=== PATIENT | female | born 1945 | race Caucasian/White ===

== ENCOUNTER 2017-07-16 14:17 | Inpatient (IN) | payer MEDICARE, OTHER ==
[~2017-07-16] VITALS: Ht 154.9 cm; Wt 74.8 kg
[2017-07-16] VITALS (7 sets, daily range): BP systolic 155–215; BP diastolic 79–99
[~2017-07-16 14:17] MED LIST: ALLP300T PO; ALPR0.5T72 PO; AMIT25TA9 PO; AMT25T; ASP325TEC PO; ASP81CT; BENZ100C18; BMSB30; BUDE6HFA IH; CEFU250T11 PO; CEPH500C PO; CIPR7.5D2 OT; CODE118S2 PO; CRB200T PO; CRS350T PO; FAMO20TA5 PO; FLDR.1T PO; GBPN600T; HCT25T PO; HYDR-31; IBP800T; IPRA3AMP19 IH; LOVA20TA2 PO; LSNP20T PO; METO100T2 PO; MOME13HF IH; MTF500T PO; OMEP40CA36 PO; ONDA8TAB9 PO; PHEN100T26 PO; PNT40TEC PO; PRD10T PO; PROP1TAB77; RANI25TA PO; TIZA2CAP7 PO; TRZ100T PO; VYTORIN
[2017-07-16 15:05] LABS: BASOPHILS % (AUTO) 0 % (0-10); EOSINOPHILS % (AUTO) 0 % (0-10); LYMPHOCYTES # (AUTO) 1.9 X 10^3 (1.0-4.0); LYMPHOCYTES % (AUTO) 9 % (12-44); MEAN CORPUSCULAR HEMOGLOBIN 31 PG (25-34); MEAN CORPUSCULAR HGB CONC 33 G/DL (32-36); MEAN CORPUSCULAR VOLUME 93 FL (80-99); MEAN PLATELET VOLUME 9.3 FL (7.4-10.4); MONOCYTES # (AUTO) 1.1 X 10^3 (0.0-1.0); MONOCYTES % (AUTO) 5 % (0-12); NEUTROPHILS # (AUTO) 18.1 X 10^3 (1.8-7.8); NEUTROPHILS % (AUTO) 86 % (42-75); PLATELET COUNT 381 10^3/uL (130-400); RED CELL DISTRIBUTION WIDTH 14.8 % (10.0-14.5); WHITE BLOOD COUNT 21.1 10^3/uL (4.3-11.0)
[2017-07-16 15:08] LABS: PROTHROMBIN TIME PATIENT 13.2 SEC (12.2-14.7)
[2017-07-16 15:18] LABS: ALANINE AMINOTRANSFERASE 19 U/L (0-55); ALBUMIN 3.7 GM/DL (3.2-4.5); ANION GAP 16 MMOL/L (5-14); ASPARTATE AMINO TRANSFERASE 28 U/L (5-34); BILIRUBIN,TOTAL 0.7 MG/DL (0.1-1.0); BLOOD UREA NITROGEN 17 MG/DL (7-18); BUN/CREATININE RATIO 22; CALCIUM 10.3 MG/DL (8.5-10.1); CARBON DIOXIDE 19 MMOL/L (21-32); CHLORIDE 97 MMOL/L (98-107); CREATININE SERUM 0.78 MG/DL (0.60-1.30); GFR ESTIMATED > 60; GLUCOSE 198 MG/DL (70-105); POTASSIUM 3.9 MMOL/L (3.6-5.0); SODIUM 132 MMOL/L (135-145); TOTAL PROTEIN 7.8 GM/DL (6.4-8.2)
[2017-07-16 15:20] LABS: BAND NEUTROPHILS 6 %; BASOPHILS % (MANUAL) 0 %; EOSINOPHILS % (MANUAL) 0 %; LYMPHOCYTES % (MANUAL) 12 %; NEUTROPHILS % (MANUAL) 81 %
[2017-07-16] MEDS ORDERED: NS IV 1000 ML 1,000 ML IV ONE (15:46)
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
--- NOTE | 2017-07-16 15:55 | Diagnostic Imaging Report ---
INDICATION: Confusion. COMPARISON: 05/31/13. EXAMINATION: Single view of the chest was obtained. FINDINGS: New infiltrate in the right upper lobe. The heart is prominent without pulmonary edema. There is some widening of the mediastinum likely due to technique. Followup with two views is recommended. There is no pneumothorax or effusion. Osseous structures are normal. IMPRESSION: 1. Right upper lobe infiltrate concerning for pneumonia. Followup recommended 2. Cardiac enlargement without overt pulmonary edema. 3. Widening of the mediastinum likely due to technique. Again, followup two views recommended. Dictated by: Dictated on workstation # [id number]
[2017-07-16] MEDS ORDERED: PIPERACILLIN SODIUM/TAZOBACTAM 4.5 GM in NS (IVPB) 100 ML IV ONE (16:00)
[2017-07-16 16:13] LABS: KETONES,URINE 3+ (NEGATIVE); LEUKOCYTE ESTERASE ,URINE 2+ (NEGATIVE); NITRITE,URINE NEGATIVE (NEGATIVE); PH,URINE 6 (5-9); PROTEIN,URINE 3+ (NEGATIVE); UROBILINOGEN,URINE 4 MG/DL (NORMAL)
[2017-07-16] MEDS ORDERED: ACETAMINOPHEN 500 MG TAB (TYLENOL) PO ONE (16:15)
[2017-07-16 16:22] LABS: BILIRUBIN,URINE 1+ (NEGATIVE); SQUAMOUS EPITHELIAL CELL,UR 0-2 /HPF; WBC,URINE 25-50 /HPF
--- NOTE | 2017-07-16 16:36 | Diagnostic Imaging Report ---
PROCEDURE: CT head without contrast. TECHNIQUE: Multiple contiguous axial images were obtained through the brain without the use of intravenous contrast. INDICATION: Confusion. COMPARISON: 07/27/08. FINDINGS: There is mild age-related cerebral volume loss and chronic small vessel ischemic changes. This has increased from the prior examination. Subacute appearing lacunar infarct is seen in the right thalamic region. There is no focus of acute ischemia or hemorrhage. There is no midline shift or mass effect. The bony calvarium, visualized paranasal sinuses and mastoids are normal. IMPRESSION: 1. Subacute right thalamic lacunar infarct measuring approximately 6 mm. 2. No focus of acute ischemia or hemorrhage. 3. No midline shift or mass effect. Dictated by: Dictated on workstation # [id number]
[2017-07-16] MEDS ORDERED: ASPIRIN 325 MG (5 GR) TABLET PO ONE (17:15)
[2017-07-16] MEDS ORDERED: LOVA40TA2 PO (19:29)
[2017-07-16] MEDS ORDERED: PANT40TA3 PO (19:29)
[2017-07-16] MEDS ORDERED: TRAZ100T92 PO (19:29)
[2017-07-16] MEDS ORDERED: METF500T4 PO (19:29)
[2017-07-16] MEDS ORDERED: SPIR25TA3 PO (19:29)
[2017-07-16] MEDS ORDERED: CARB200T6 PO (19:29)
[2017-07-16] MEDS ORDERED: CITA20TA7 PO (19:29)
[2017-07-16] MEDS ORDERED: ALLO300T2 PO (19:29)
[2017-07-16] MEDS ORDERED: ALPR0.5T7 PO (19:29)
[2017-07-16] MEDS ORDERED: AMIT25TA9 PO (19:31)
[2017-07-16] MEDS ORDERED: ONDANSETRON 4 MG/2 ML (SDV) Z0FRAN IVP PRN (20:00)
[2017-07-16] MEDS ORDERED: ACETAMINOPHEN 500 MG TAB (TYLENOL) PO PRN (20:00)
[2017-07-16] MEDS ORDERED: MILK OF MAGNESIA 400 MG/5 ML 30 ML UDC PO PRN (20:15)
[2017-07-16] MEDS ORDERED: RT-ALBUTEROL SULF 2.5 MG/3 ML PRE-MIX VIAL IH PRN (20:30)
[2017-07-16] MEDS ORDERED: LEVOFLOXACIN 750 MG/D5W 150 ML PRE-MIX IV SCH (21:00)
[2017-07-16] MEDS ORDERED: LEVOFLOXACIN 750 MG/150 ML IV 150 ML IV SCH (21:00)
[2017-07-16] MEDS ORDERED: FAMOTIDINE 20MG/2ML IV (PEPCID) IVP SCH (21:00)
[2017-07-16] MEDS: NS IV 1000 ML 1,000 ML IV SCH (21:33)
[2017-07-16] MEDS: ENOXAPARIN 40 MG/0.4 ML (LOVENOX) SYR SC SCH (22:51)
[2017-07-16] MEDS: inSUlin ASPART (NovoLOG) 1 UNIT/0.01 ML (CHARGE PER UNIT) SC SCH (22:52)
[2017-07-16] MEDS: PIPERACILLIN SODIUM/TAZOBACTAM 4.5 GM in NS (IVPB) 100 ML IV SCH (22:53)
[2017-07-17 00:50] VITALS: BP 153/92
[2017-07-17 03:45] VITALS: BP 179/84
[2017-07-17 05:27] LABS: BASOPHILS % (AUTO) 0 % (0-10); EOSINOPHILS # (AUTO) 0.1 10^3/uL (0.0-0.3); EOSINOPHILS % (AUTO) 1 % (0-10); LYMPHOCYTES # (AUTO) 1.7 X 10^3 (1.0-4.0); LYMPHOCYTES % (AUTO) 12 % (12-44); MEAN CORPUSCULAR HEMOGLOBIN 31 PG (25-34); MEAN CORPUSCULAR HGB CONC 33 G/DL (32-36); MEAN CORPUSCULAR VOLUME 94 FL (80-99); MEAN PLATELET VOLUME 9.3 FL (7.4-10.4); MONOCYTES % (AUTO) 8 % (0-12); NEUTROPHILS # (AUTO) 10.8 X 10^3 (1.8-7.8); NEUTROPHILS % (AUTO) 79 % (42-75); PLATELET COUNT 296 10^3/uL (130-400); RED CELL DISTRIBUTION WIDTH 14.8 % (10.0-14.5); WHITE BLOOD COUNT 13.6 10^3/uL (4.3-11.0)
[2017-07-17 06:22] LABS: ALANINE AMINOTRANSFERASE 24 U/L (0-55); ANION GAP 12 MMOL/L (5-14); ASPARTATE AMINO TRANSFERASE 31 U/L (5-34); BILIRUBIN,TOTAL 0.7 MG/DL (0.1-1.0); BLOOD UREA NITROGEN 17 MG/DL (7-18); BUN/CREATININE RATIO 24; CALCIUM 8.9 MG/DL (8.5-10.1); CARBON DIOXIDE 18 MMOL/L (21-32); CHLORIDE 104 MMOL/L (98-107); CHOLESTEROL 153 MG/DL (< 200); CREATININE SERUM 0.71 MG/DL (0.60-1.30); DIRECT LDL 85 MG/DL (1-129); GFR ESTIMATED > 60; GLUCOSE 130 MG/DL (70-105); POTASSIUM 3.5 MMOL/L (3.6-5.0); SODIUM 134 MMOL/L (135-145); TOTAL PROTEIN 6.1 GM/DL (6.4-8.2); TRIGLYCERIDES 104 MG/DL (<150); VLDL CHOLESTEROL 21 MG/DL (5-40)
[2017-07-17] MEDS: inSUlin ASPART (NovoLOG) 1 UNIT/0.01 ML (CHARGE PER UNIT) SC SCH ×4 (06:24→20:59)
[2017-07-17] MEDS: NS IV 1000 ML 1,000 ML IV SCH ×2 (06:31→18:01)
[2017-07-17] MEDS: PIPERACILLIN SODIUM/TAZOBACTAM 4.5 GM in NS (IVPB) 100 ML IV SCH ×3 (06:31→21:55)
[2017-07-17] MEDS: RT-ALBUTEROL/IPRATROPIUM 3 ML (DUONEB) VIAL INH SCH ×4 (07:24→19:06)
[2017-07-17 08:00] VITALS: BP 191/85
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
[2017-07-17] MEDS ORDERED: ASPIRIN E.C. 81 MG (ECOTRIN) TAB PO SCH (09:00)
[2017-07-17] MEDS: PANTOPRAZOLE 40 MG (PROTONIX) TAB PO SCH (09:21)
[2017-07-17] MEDS: ASPIRIN 325 MG (5 GR) TABLET PO SCH (09:22)
[2017-07-17] MEDS: FAMOTIDINE 20MG/2ML IV (PEPCID) IVP SCH ×2 (09:22→20:59)
--- NOTE | 2017-07-17 09:44 | Diagnostic Imaging Report ---
INDICATION: Pneumonia. Comparison made with prior examination 07/16/17. FINDINGS: There is cardiomegaly. There is persistent right upper lobe consolidation suspect for pneumonia. There is no pleural effusion or pneumothorax. There is a nodular density in the right lung base. IMPRESSION: Persistent right upper lobe pneumonia. Cardiomegaly. The nodular density in the right lung base corresponds with the previously described calcified granuloma. Dictated by: Dictated on workstation # [id number]
[2017-07-17 11:50] VITALS: BP 191/97
--- NOTE | 2017-07-17 12:38 | Consultation-Cardiology ---
HPI-Cardiology Cardiology Consultation: Date of Consultation 07/17/17 Date of Admission Attending Physician Quiana Mullen MD Admitting Physician Gopal Todd MD Consulting Physician Barbara RAMOS MD HPI: Time Seen by Provider: 12:15 Chief Complaint: Sinus tachycardia This is a 71-year-old lady with history of hypertension. She does not have any significant cardiac history. She presented with altered mental status and shortness of breath. She's been diagnosed with sepsis and possible stroke. She denies any chest pain. She does have some shortness of breath. Review of Systems-Cardiology Review of Systems Constitutional: fever Eyes: No As described under HPI, No no symptoms reported, No blindness, No blurred vision, No contact lenses, No drainage, No decreased acuity, No foreign body sensation, No glasses, No inflammation, No pain, No photophobia, No previous injury, No shadows, No tunnel vision, No other, No vision change Ears/Nose/Throat: No As described under HPI, No no symptoms reported, No chronic hearing loss, No epistaxis, No ear discharge, No ear pain, No loose teeth, No mouth pain, No mouth swelling, No nasal drainage, No nose pain, No recent hearing loss, No throat pain, No throat swelling, No ulcerations, No other Respiratory: shortness of breath Cardiovascular: No no symptoms reported, No As described under HPI, No chest pain, No edema, No irregular heart rate, No lightheadedness, No palpitations, No syncope, No other Gastrointestinal: No no symptoms reported, No As described under HPI, No abdomen distended, No abdominal pain, No blood streaked bowels, No constipation , No diarrhea, No difficulty swallowing, No nausea, No poor appetite, No poor fluid intake, No rectal bleeding, No vomiting, No other, No nausea/vomiting/ diarrhea, No stool coloration changes Genitourinary: no symptoms reported : No Musculoskeletal: No no symptoms reported, No As describe under HPI, No back pain, No gout, No joint pain, No joint swelling, No muscle pain, No muscle stiffness, No neck pain, No other Skin: No no symptoms reported, No As described under HPI, No change in color, No change in hair/nails, No dryness, No lesions, No lumps, No rash, No other, No skin related problems, No ulcerations, No rash on exposed areas, No ulcerations on exposed areas Psychiatric/Neurological: No no symptoms reported, No As described under HPI, No anxiety, No depression, No emotional problems, No headache, No numbness, No pre-existing deficit, No seizure, No tingling, No tremors, No weakness, No other , No focal weakness, No syncope MXY-Bxeufs-Dgqyao Hx Patient Social History Alcohol Use: Denies Use Recreational Drug Use: No Smoking Status: Current Everyday Smoker Type Used: Cigarettes Recent Foreign Travel: No Recent Infectious Disease Expo: No Hospitalization with Isolation: Denies Physical Abuse Screen: No Sexual Abuse: No Immunizations Up To Date Tetanus Booster (TDap): More than 5yrs Date of Pneumonia Vaccine: Jun 01, 2013 Past Medical History PMH As described under Assessment. Family Medical History Family History: Completed stroke 19 FATHER FH: COPD (chronic obstructive pulmonary disease) 19 MOTHER Hypertension G8 SISTER 19 MOTHER Myocardial infarction 19 FATHER Allergies and Home Medications Allergies Coded Allergies: Iodinated Contrast- Oral and IV Dye (Unverified Allergy, Mild, 07/26/07) Home Medications Allopurinol 300 Mg Tablet, 300 MG PO DAILY, (Reported) Alprazolam 0.5 Mg Tablet, 0.5 MG PO TID PRN for ANXIETY, (Reported) Amitriptyline HCl 25 Mg Tablet, 25 MG PO BID, (Reported) Carbamazepine 200 Mg Tablet, 200 MG PO BID, (Reported) Citalopram Hydrobromide 20 Mg Tablet, 20 MG PO DAILY, (Reported) Lovastatin 40 Mg Tablet, 40 MG PO HS, (Reported) Metformin HCl 500 Mg Tablet, 500 MG PO DAILY, (Reported) Pantoprazole Sodium 40 Mg Tablet.dr, 40 MG PO DAILY, (Reported) Spironolactone 25 Mg Tablet, 25 MG PO DAILY, (Reported) Trazodone HCl 100 Mg Tablet, 100 MG PO HS, (Reported) Physical Exam-Cardiology Physical Exam Vital Signs/I&O Vital Sign - Last 12Hours 07/17/17 07/17/17 07/17/17 07/17/17 00:50 01:00 03:45 07:00 Temp 98.9 98.4 Pulse 90 87 86 81 Resp 20 20 B/P (MAP) 153/92 179/84 Pulse Ox 97 96 O2 Delivery Room Air Room Air 07/17/17 07/17/17 07/17/17 07/17/17 07:25 08:00 09:00 11:33 Temp 98.0 Pulse 83 Resp 20 B/P (MAP) 191/85 Pulse Ox 96 96 96 O2 Delivery Room Air Room Air Room Air Room Air 07/17/17 11:50 Temp 98.3 Pulse 87 Resp 20 B/P (MAP) 191/97 Pulse Ox 94 O2 Delivery Room Air Capillary Refill : Less Than 3 Seconds Constitutional: No appears stated age, No AAO x 3, No apparent distress, No PERRL, No well-developed, No well-nourished, No other HEENT: No PERRL, No normal ENT inspection, No TMs normal, No pharynx normal, No scleral icterus (R), No scleral icterus (L), No pale conjunctivae (R), No pale conjunctivae (L), No photophobia, No TM abnormal (R), No TM abnormal (L), No pharyngeal erythema, No tonsillar exudate, No other, No discharge, No EOMI, No hearing is well preserved, No hard of hearing, No oral hygience is good, No ulceration, No xanthelasmas are seen Neck: No non-tender, No full range of motion, No supple, No normal inspection, No carotid bruit, No limited range of motion, No lymphadenopathy (R), No lymphadenopathy (L), No tender lateral, No tender midline, No thyromegaly, No other, No carotid pulses are 2 + bilaterally, No with good upstrokes Respiratory: No accessory muscle use, No respiratory distress, No chest tender , No chest expansion is symmetric, No chest is bilaterally symmetric, No lungs clear to percussion, No lungs clear to auscultation, No crackles, No rhonchi, No rales, No stridor, No wheezing, No pleural rub, No other Cardiovascular: No regular rate-rhythm, No irregularly irregular, No extra beats, No parasternal heave is noted, No JVD, No edema, No bradycardia, No tachycardia, No point of maximal impulse, No cardiac thrills are palpable, No S1 and S2, No gallop/S3, No gallop/S4, No diastolic murmur, No systolic murmur, No friction rub, No click, No other Gastrointestinal: No tender, No soft, No round, No distended, No pulsatile mass , No organomegaly, No guarding, No rebound, No tenderness, No hernia, No mass, No audible bowel sounds, No abnormal bowel sounds, No abdominal bruits, No spleenomegaly, No other Rectal: deferred Extremities: No normal range of motion, No non-tender, No normal inspection, No pedal edema, No calf tenderness, No normal capillary refill, No pelvis stable , No calf tenderness, No inflammation, No pedal edema, No slow capillary refill , No swelling, No other, No abrasion, No clubbing, No cyanosis, No ecchymosis, No laceration, No no lower extremity edema bilateral, No significant edema, No tenderness, No wound Neurologic/Psychiatric: No purchasing intern II-XII nml as tested, No no motor/sensory deficits, No alert, No normal mood/affect, No oriented x 3, No abnormal cerebellar tests, No abnormal purchasing intern II-XII, No abnormal gait, No aphasia, No EOM palsy, No facial droop, No motor weakness, No sensory deficit, No depressed affect, No disoriented x 3, No other, No grossly intact, No power is 5/5 both on sides Skin: normal color, warm/dry Data Review Labs Laboratory Tests 07/16/17 14:40: White Blood Count 21.1H, Red Blood Count 3.90L, Hemoglobin 12.1, Hematocrit 36, Mean Corpuscular Volume 93, Mean Corpuscular Hemoglobin 31, Mean Corpuscular Hemoglobin Concent 33, Red Cell Distribution Width 14.8H, Platelet Count 381, Mean Platelet Volume 9.3, Neutrophils (%) (Auto) 86H, Lymphocytes (%) (Auto) 9L , Monocytes (%) (Auto) 5, Eosinophils (%) (Auto) 0, Basophils (%) (Auto) 0, Neutrophils # (Auto) 18.1H, Lymphocytes # (Auto) 1.9, Monocytes # (Auto) 1.1H, Eosinophils # (Auto) 0.0, Basophils # (Auto) 0.0, Neutrophils % (Manual) 81, Lymphocytes % (Manual) 12, Monocytes % (Manual) 1, Eosinophils % (Manual) 0, Basophils % (Manual) 0, Band Neutrophils 6, Hypersegmented Neutrophils SLIGHT, Blood Morphology Comment NORMAL, Prothrombin Time 13.2, INR Comment 1.0, Activated Partial Thromboplast Time 31, Sodium Level 132L, Potassium Level 3.9, Chloride Level 97L, Carbon Dioxide Level 19L, Anion Gap 16H, Blood Urea Nitrogen 17, Creatinine 0.78, Estimat Glomerular Filtration Rate > 60, BUN/ Creatinine Ratio 22, Glucose Level 198H, Hemoglobin A1c 6.3H, Lactic Acid Level 1.42, Calcium Level 10.3H, Total Bilirubin 0.7, Aspartate Amino Transf (AST/SGOT ) 28, Alanine Aminotransferase (ALT/SGPT) 19, Alkaline Phosphatase 168H, Total Protein 7.8, Albumin 3.7 07/16/17 16:07: Urine Color YELLOW, Urine Clarity SLIGHTLY CLOUDY, Urine pH 6, Urine Specific [place]ax 1.020, Urine Protein 3+H, Urine Glucose (UA) NEGATIVE, Urine Ketones 3+H , Urine Nitrite NEGATIVE, Urine Bilirubin 1+H, Urine Urobilinogen 4H, Urine Leukocyte Esterase 2+H, Urine RBC (Auto) 2+H, Urine RBC 0-2, Urine WBC 25-50H, Urine Squamous Epithelial Cells 0-2, Urine Crystals PRESENTH, Urine Amorphous Sediment FEW RAMESH URATESH, Urine Bacteria MODERATEH, Urine Casts NONE, Urine Mucus SMALLH, Urine Culture Indicated YES 07/16/17 20:48: Glucometer 294H 07/17/17 05:20: White Blood Count 13.6H, Red Blood Count 3.20L, Hemoglobin 9.9L, Hematocrit 30L , Mean Corpuscular Volume 94, Mean Corpuscular Hemoglobin 31, Mean Corpuscular Hemoglobin Concent 33, Red Cell Distribution Width 14.8H, Platelet Count 296, Mean Platelet Volume 9.3, Neutrophils (%) (Auto) 79H, Lymphocytes (%) (Auto) 12 , Monocytes (%) (Auto) 8, Eosinophils (%) (Auto) 1, Basophils (%) (Auto) 0, Neutrophils # (Auto) 10.8H, Lymphocytes # (Auto) 1.7, Monocytes # (Auto) 1.0, Eosinophils # (Auto) 0.1, Basophils # (Auto) 0.0, Sodium Level 134L, Potassium Level 3.5L, Chloride Level 104, Carbon Dioxide Level 18L, Anion Gap 12, Blood Urea Nitrogen 17, Creatinine 0.71, Estimat Glomerular Filtration Rate > 60, BUN/ Creatinine Ratio 24, Glucose Level 130H, Calcium Level 8.9, Total Bilirubin 0.7 , Aspartate Amino Transf (AST/SGOT) 31, Alanine Aminotransferase (ALT/SGPT) 24, Alkaline Phosphatase 154H, Total Protein 6.1L, Albumin 3.0L, Triglycerides Level 104, Cholesterol Level 153, LDL Cholesterol Direct 85, VLDL Cholesterol 21 , HDL Cholesterol 43 07/17/17 10:44: Glucometer 315H Microbiology 07/16/17 Urine Culture - Preliminary, Resulted Probable Enterococcus Species ECG Impression ECG Initial ECG Rhythm: Normal Sinus A/P-Cardiology Assessment/Admission Diagnosis Sinus tachycardia, Sepsis, Hypertension, Shortness of breath, Stroke Plan Sinus tachycardia: Much better now. On telemetry sinus rhythm at 72 bpm. Initial sinus tachycardia likely due to the underlying systemic illness. Improved with IV antibiotics. Negative troponin and negative BNP. Sepsis: IV fluids and IV antibiotics. Hypertension: Can start home medications. Shortness of breath: Negative BNP Stroke: Defer to primary team. Thank you for your consultation. Please call me if you have any questions. Ariel Ramos MD, FACP, FACC, FSCAI, FHRS, CCDS Interventional Cardiology Cardiac Electrophysiology Vascular Medicine and Endovascular Interventions Clinical Quality Measures DVT/VTE Risk/Contraindication: Risk Factor Score Per Nursin RFS Level Per Nursing on Admit: 4+=Very High Barbara RAMOS MD Jul 17, 2017 12:38 pm
--- NOTE | 2017-07-17 13:27 | History & Physical-Hospitalist ---
HPI History of Present Illness: HPI/Chief Complaint The patient is a 71-year-old white female who was admitted after she was seen in the emergency room at [facility]. She is clearly confused and cannot give specific details about her illness. Apparently her son who lives in [facility] came for a visit and found her to be in a confused and undesirable state. He insisted that she come to the emergency room. The family reported that her last known well time was a week prior when they went out to dinner together. They found her to be confused and short of breath on this encounter. She was febrile at the emergency room and could not really answer questions. She has a past history of hypertension and is on medications. She has a long history of cigarette smoking but has quit at present. Is also known that she previously had difficulties with lisinopril which caused a cough. She states that she is on a blood pressure medicine but none is included at admission questioning. Workup in the emergency room showed what appeared to be a right upper lobe pneumonia, a white blood count of 21,000 at presentation. And a right upper lobe infiltrate on chest x-ray. In addition the UA showed 25-50 WBCs per high-powered field. Her temperature at the emergency room was 100.7 with a pulse of 108 consistent with Sirs. The UA and chest x-ray then yield sepsis. CT scan of the head shows a subacute lacunar infarct which may explain the confusion Source: patient Exam Limitations: no limitations Date Seen 07/17/17 Time Seen by Provider: 13:22 Attending Physician Quiana Mullen MD PCP Gopal Todd MD Referring Physician Date of Admission Jul 16, 2017 at 16:15 Home Medications & Allergies Home Medications Reviewed patient Home Medication Reconciliation Form Allergies Allergies Coded Allergies Iodinated Contrast- Oral and IV Dye (Unverified Allergy, Mild, 07/26/07) Past Ijnhapo-Imbqhs-Lbbqtp Hx Patient Social History Alcohol Use: Denies Use Recreational Drug Use: No Smoking Status: Current Everyday Smoker Type Used: Cigarettes Physical Abuse Screen: No Sexual Abuse: No Recent Foreign Travel: No Contact w/other who traveled: No Recent Hopitalizations: Yes Recent Infectious Disease Expo: No Immunizations Up To Date Tetanus Booster (TDap): More than 5yrs Pediatric: No Date of Pneumonia Vaccine: Jun 01, 2013 Seasonal Allergies Seasonal Allergies: Yes Surgeries Yes (CHAS,APPY,HYST,JAW ) Abdominal (Partial colectomy), Appendectomy, Gallbladder, Hysterectomy Respiratory Yes Cardiovascular Yes (MITRAL VALVE PROLAPSE) Coronary Artery Disease, Hypertension Neurological Yes (Fine tremor) TIA Reproductive System Hx Reproductive Disorders: No Sexually Transmitted Disease: No HIV/AIDS: No Female Reproductive Disorders: Denies Genitourinary No Gastrointestinal Yes (perf bowel--8-10 inch colon removed 2007) Diverticulosis, Gall Bladder Disease Musculoskeletal Yes Gout Endocrine History of Endocrine Disorders: Yes Endocrine Disorders: Diabetes, Non-Insulin dep HEENT Loss of Vision: Denies Hearing Impairment: Hard of Hearing Cancer Yes Skin Psychosocial History of Psychiatric Problem: Yes Behavioral Health Disorders: Depression Integumentary History of Skin or Integumenta: Yes (skin cancer removed to left lower leg 2012 ) Blood Transfusions History of Blood Disorders: No Adverse Reaction to a Blood Tr: No Family Medical History Family Hx: Completed stroke 19 FATHER FH: COPD (chronic obstructive pulmonary disease) 19 MOTHER Hypertension G8 SISTER 19 MOTHER Myocardial infarction 19 FATHER Review of Systems Constitutional: see HPI EENTM: no symptoms reported Respiratory: cough, short of breath Cardiovascular: no symptoms reported Gastrointestinal: no symptoms reported Genitourinary: see HPI Musculoskeletal: no symptoms reported Skin: no symptoms reported Psychiatric/Neurological: Other (confusion, uncertain of situation or date and time.) Physical Exam Physical Exam Vital Signs Vital Sign - Last 12Hours 07/16/17 07/16/17 07/16/17 14:22 17:20 20:17 Temp 100.7 Pulse 108 Resp 18 B/P (MAP) 197/107 Pulse Ox 96 O2 Delivery Room Air FiO2 21 Capillary Refill : Less Than 3 Seconds General Appearance: Mild Distress Eyes: Bilateral Eye Normal Inspection HEENT: Normal ENT Inspection Neck: Normal Inspection Respiratory: Decreased Breath Sounds (distant breath sounds) Cardiovascular: Regular Rate, Rhythm, No Edema, No Gallop, No JVD, No Murmur, Normal Peripheral Pulses Gastrointestinal: Normal Bowel Sounds, No Organomegaly, No Pulsatile Mass, Non Tender, Soft Extremity: Normal Capillary Refill, Normal Inspection, Normal Range of Motion, Non Tender, No Calf Tenderness, No Pedal Edema Neurologic/Psychiatric: Other (confusion relative to date and time and circumstance) Skin: Normal Color, Warm/Dry Lymphatic: No Adenopathy Results Results/Procedures Lab Laboratory Tests 07/16/17 14:40 07/17/17 05:20 Assessment/Plan Admission Diagnosis 1.sepsis/right upper lobe pneumonia and apparent UTI. 2.confusion/subacute lacunar infarct. 3.COPD. 4.hypertension. Assessment and Plan Empiric antibiotics while awaiting cultures. It has been noted that there is a significant drop in white count at this point. Her MAXIMUM TEMPERATURE was 100.7. Urine is growing enterococcus which by our antibiogram should be sensitive to ampicillin or vancomycin. Clinical Quality Measures DVT/VTE Risk/Contraindication: Risk Factor Score Per Nursin RFS Level Per Nursing on Admit: 4+=Very High VASHTI MILES MD Jul 17, 2017 13:27
[2017-07-17 15:50] VITALS: BP 179/92
--- NOTE | 2017-07-17 16:04 | Occupational Therapy Eval ---
OT Evaluation-General/PLF Medical Diagnosis Admission Date Jul 16, 2017 at 16:15 Medical Diagnosis: cva Onset Date: Jul 17, 2017 Therapy Diagnosis Therapy Diagnosis: Weakness Height/Weight Height (Feet): 5 Height (Inches): 1.00 Weight (Pounds): 164 Weight (Ounces): 14.0 Precautions Precautions/Isolations: Fall Prevention, Standard Precautions Safety Interventions: Bed Exit Alarm, Reorient-PRN Weight Bear Status Weight Bearing Restriction: Weight Bearing/Tolerated Referral Physician: Quiana Mullen MD Referral Reason: Activity Tolerance, Self Care, Evaluation/Treatment, Strengthening/ROM Medical History Pertinent Medical History: CAD, COPD, HTN, Neuropathy Additional Medical History partial colectomy, appendectomy, hysterectomy, mitral valve prolapse Current History Pt. found by her family at home. Confused and incontinent. Reviewed History: Yes Social History Home: Single Level Current Living Status: Alone Entry Into Home: Level Entry ADL-Prior Level of Function ADL PLOF Comments Son in room. States that pt. was independent with basic self care previous to this incident. DME/Equipment: Bath Chair, Tub/Shower DME/Equipment Comments Pt. uses a walker. Drive Self: Yes OT Current Status Subjective Pt. does not report pain. Attempts to communicate. Is able to, however, does have difficulty getting words out, and note labile behavior. Pt. laughs at everything and then cries. Appearance Pt. up in chair finishing lunch. Attempts to tell OT that her hands feel "backward." Agrees to work with OT. Mental Status/Objective Patient Orientation: Unable to Assess Pt. does not know that she is in a hospital. When OT tells her, she begins to laugh uncontrollably. However, when physician comes in room, she is able to tell him that she was found unconscious by her family. Current Hand Dominance: Right Upper Extremity ROM right- WFL left- does not raise all the way up. this may be due to IV. Pt. is laughing and having a hard time following directions. Upper Extremity Coordination impaired. Pt. has difficulty following cues for testing. Also has an IV placed in elbow of left arm that is bleeding and keeps making monitor beep. Nursing states that it will be relocated soon. ADL-Treatment Functional Cavalier Measure 0=Not Assessed/NA 4=Minimal Assistance 1=Total Assistance 5=Supervision or Setup 2=Maximal Assistance 6=Modified Cavalier 3=Moderate Assistance 7=Complete IndependenceIRFPAI Quality Coding Scale 6 Independent with activity with or without an assistive device 5 Patient requires set up or clean up by helper. Patient completes activity by themselves 4 Supervision or touching assist (CGA). Saxton provide cues , steadying assist 3 The helper provides less than half the effort to complete the activity 2 The helper provides more than half the effort to complete the activity 1 Dependent. The helper does all the effort to complete an activity 7 Patient refused to complete or attempt activity 9 The patient did not perform the activity before the current illness or injury 88 Not attempted due to Medical conditions or safety concerns Lower Body Dressing (FIM): 5 (Pt. is able to doff and don socks with increased effort. States that she had a hard time before. When asked how she did it, she begins to laugh uncontrollably.) Toileting (FIM): 5 (Pt. is able to toilet self but requires cues to initiate and sequence.) Transfers (B, C, W/C) (FIM): 4 (CGA for sit-stand and ambulation to bathroom.) Toilet/Commode Transfer (FIM): 4 Other Treatments Pt. demonstrates somewhat ataxic movements. Attempts to tell OT that her body does not feel like her own. Seems to have to think about each movement before she does it, such as toileting. Education OT Patient Education: Correct positioning, Modified ADL techniques, Progress toward Goal/Update tx plan, Purpose of tx/functional activities, Reviewed precautions, Rehab process, Transfer techniques Teaching Recipient: Patient, Family Teaching Methods: Demonstration, Discussion Response to Teaching: Verbalize Understanding, Return Demonstration OT Short Term Goals Short Term Goals Time Frame: Jul 31, 2017 Eating(FIM): 5 Grooming(FIM): 5 Bathing(FIM): 4 Upper Body Dressing(FIM): 5 Lower Body Dressing(FIM): 5 Toileting(FIM): 5 Transfers (B,C,W/C) (FIM): 5 Toilet/Commode Transfer(FIM): 5 Shower Transfer(FIM): 4 Additional Short Term Goals: 1-Demonstrate ADL Tasks, 2-Verbalize Understanding , 3-ImproveStrength/Demario 1=Demonstrate adherence to instructed precautions during ADL tasks. 2=Patient will verbalize/demonstrate understanding of assistive devices/ modifications for ADL. 3=Patient will improve strength/tolerance for activity to enable patient to perform ADL's. OT Services Tech Goals Long-Term Goals Time Frame: Aug 07, 2017 Eating (FIM): 6 Grooming(FIM): 6 Bathing(FIM): 5 Upper Body Dressing(FIM): 6 Lower Body Dressing(FIM): 6 Toileting(FIM): 6 Transfers (B,C,W/C) (FIM): 6 Toilet/Commode Transfer(FIM): 6 Shower Transfer(FIM): 5 Additional Goals: 1-Demonstrate ADL Tasks, 2-Verbalize Understanding, 3- ImproveStrength/Demario 1=Demonstrate adherence to instructed precautions during ADL tasks. 2=Patient will verbalize/demonstrate understanding of assistive devices/ modifications for ADL. 3=Patient will improve strength/tolerance for activity to enable patient to perform ADL's. OT Education/Plan Problem List/Assessment Assessment: Decreased Activ Tolerance, Decreased UE Strength, Dependent Transfers, Impaired Bed Mobility, Impaired Cognition, Impaired Coordination, Impaired Funct Balance, Impaired I ADL's, Impaired Self-Care Skills Discharge Recommendations Plan/Recommendations: Continue POC Therapy D/C Recommendations: Acute Rehab Target Placement Pt. would benefit from inpatient rehab before discharge home. Treatment Plan/Plan of Care Treatment,Training & Education: Yes Patient would benefit from OT for education, treatment and training to promote independence in ADL's, mobility, safety and/or upper extremity function for ADL' s. Plan of Care: ADL Retraining, Functional Mobility, UE Funct Exercise/Act Treatment Duration: Aug 07, 2017 Frequency: 5 times per week Estimated Hrs Per Day: .5 hour per day Agreement: Yes Rehab Potential: Good Time/GCodes Start Time: 12:50 Stop Time: 13:30 Total Time Billed (hr/min): 40 Billed Treatment Time 1, EVM x 15minutes, ADL x 25minutes GERARDO BLANKENSHIP OT Jul 17, 2017 16:04
[2017-07-17 20:45] VITALS: BP 192/101
[2017-07-17] MEDS: ENOXAPARIN 40 MG/0.4 ML (LOVENOX) SYR SC SCH (20:59)
[2017-07-17] MEDS: ALPRAZolam 0.5 MG (XANAX) TAB PO PRN (21:00)
[2017-07-17] MEDS: AMITRIPTYLINE 25 MG (ELAVIL) TAB PO SCH (21:00)
[2017-07-17] MEDS: carBAMazepine 200 MG (TEGretol) TAB PO SCH (21:00)
[2017-07-18] VITALS (8 sets, daily range): BP systolic 173–197; BP diastolic 85–105
[2017-07-18] MEDS ORDERED: SPIRONOLACTONE 25 MG (ALDACTONE) TAB ONE (01:44)
[2017-07-18] MEDS ORDERED: VALSARTAN 80 MG (DIOVAN) TAB ONE (01:45)
[2017-07-18] MEDS: NS IV 1000 ML 1,000 ML IV SCH ×2 (02:18→13:32)
[2017-07-18] MEDS: VALSARTAN 80 MG (DIOVAN) TAB PO SCH (03:26)
[2017-07-18] MEDS: ALPRAZolam 0.5 MG (XANAX) TAB PO PRN (03:26)
[2017-07-18] MEDS: SPIRONOLACTONE 25 MG (ALDACTONE) TAB PO SCH (03:26)
[2017-07-18] MEDS: PIPERACILLIN SODIUM/TAZOBACTAM 4.5 GM in NS (IVPB) 100 ML IV SCH ×2 (05:45→13:32)
[2017-07-18] MEDS: inSUlin ASPART (NovoLOG) 1 UNIT/0.01 ML (CHARGE PER UNIT) SC SCH ×4 (05:45→20:51)
[2017-07-18] MEDS: RT-ALBUTEROL/IPRATROPIUM 3 ML (DUONEB) VIAL INH SCH ×4 (07:01→19:02)
--- NOTE | 2017-07-18 09:22 | ST Dysphagia Evaluation ---
Speech Evaluation-General Medical Diagnosis CVA Onset Date: Jul 17, 2017 Therapy Diagnosis Therapy Diagnosis: Oropharyngeal Swallow Function WNL Precautions Precautions/Isolations: Fall Prevention, Standard Precautions Referral Referring Physician: Dr. Quiana Mullen Reason for Referral: Evaluation/Treatment Clinical Bedside Swallowing Evaluation Medical History Pertinent Medical History: CAD, COPD, HTN, Neuropathy Reviewed History: Yes Social History Current Living Status: Alone Speech PLF/Current-Dysphagia Prior Level of Function The patient denied swallowing deficits with any consistency prior to admission. Subjective The patient was recently admitted to [facility] following a CVA. The patient greeted the clinician appropriately and was agreeable to participation in the dysphagia evaluation. CXR: 07/17/2017: Persistent right upper lobe pneumonia. Cognitive Status Patient Orientation: Person Patient appears intermittently confused, however, does report accurate yes and no responses when orientation questions were poised by the clinician. Oral Motor Skills Dentition: Natural Current Food Consistancy: Regular, Thin Liquids Ability to Follow Directions: Fair Oral Expression Ability: Moderate Impairment Voice Voice Phonatory-Based Quality: Glottal [place] Voice Pitch: Normal Voice Loudness: Normal Face Facial Symmetry: Symmetrical Oral-Facial Assessment Oral-Facial Dentition: Normal Labial Seal Description: Normal Smile: Normal Lingual Protrusion: Normal Lingual ROM: Normal Lingual Strength: Normal Pharynx Velopharyngeal Move.: Normal Volitional Dry Swallow: Yes Dysphagia Evaluation Consistencies Presented: Regular, Thin Liquid, Pureed - No oral impairments were noted throughout the swallowing evaluation. - No pharyngeal impairments were noted throughout the swallowing evaluation. - Thin Liquid (teaspoon, cup sip, straw), puree, solid: No signs/symptoms of aspiration were demonstrated with any consistency tested throughout the evaluation. The patient's vocal quality remained clear throughout all trials. Dietary Recommendations: Regular Liquid Recommendations: Thin Swallowing Precautions: Small Bites and Sips, Sitting Upright 90 Degrees Dysphagia Evaluation Summary The patient displayed an oropharyngeal swallow grossly within normal limits. Speech-Plan Treatment Plan Speech Therapy Treatment Plan: Continue Plan of Care Continue skilled speech pathology services for speech and language services. Dysphagia services are not warranted at this time. Treatment Duration: Aug 01, 2017 Frequency: 3 times per week Estimated Hrs Per Day: .25 hour per day Rehab Potential: Good Safety Risks/Education Teaching Recipient: Patient Teaching Methods: Discussion Response to Teaching: Reinforcement Needed Education Topics Provided: Results, Recommendations, Swallowing Strategies, Signs/Symptoms of Aspiration Time Speech Therapy Time In: 09:00 Speech Therapy Time Out: 09:20 Total Billed Time: 20 Billed Treatment Time 1, RICCI BISWAS Jul 18, 2017 09:22
[2017-07-18] MEDS: FAMOTIDINE 20MG/2ML IV (PEPCID) IVP SCH (09:25)
[2017-07-18] MEDS: ASPIRIN 325 MG (5 GR) TABLET PO SCH (09:31)
[2017-07-18] MEDS: carBAMazepine 200 MG (TEGretol) TAB PO SCH ×2 (09:31→20:23)
[2017-07-18] MEDS: metFORMIN 500 MG (GLUCOPHAGE) TAB PO SCH (09:31)
[2017-07-18] MEDS: PANTOPRAZOLE 40 MG (PROTONIX) TAB PO SCH (09:31)
[2017-07-18] MEDS: ALLOPURINOL 300 MG (ZYLOPRIM) TAB PO SCH (09:31)
[2017-07-18] MEDS: AMITRIPTYLINE 25 MG (ELAVIL) TAB PO SCH ×2 (09:31→20:23)
--- NOTE | 2017-07-18 10:54 | Physical Therapy Daily Note ---
PT Daily Note-Current Subjective Patient agrees to PT. No c/o at this time. Pain Numeric Pain Scale: 0-No Pain Location: No Pain Reported Mental Status Patient Orientation: Person, Time, Situation Transfers Functional [place] Measure 0=Not Assessed/NA 4=Minimal Assistance 1=Total Assistance 5=Supervision or Setup 2=Maximal Assistance 6=Modified [place] 3=Moderate Assistance 7=Complete IndependenceIRFPAI Quality Coding Scale 6 Independent with activity with or without an assistive device 5 Patient requires set up or clean up by helper. Patient completes activity by themselves 4 Supervision or touching assist (CGA). [place] provide cues , steadying assist 3 The helper provides less than half the effort to complete the activity 2 The helper provides more than half the effort to complete the activity 1 Dependent. The helper does all the effort to complete an activity 7 Patient refused to complete or attempt activity 9 The patient did not perform the activity before the current illness or injury 88 Not attempted due to Medical conditions or safety concerns Transfers (B, C, W/C) (FIM): 5 Sit to/from Stand: 5 Gait Training Gait (FIM): 5 Distance (FIM): 3=150 ft Distance: 250' Gait Level of Assist: 5 Gait Persons Needed: 1 Gait Assistive Device: FWW very slow, steady gait sequence Exercises Seated Therapy Exercises: Ankle pumps, Long arc quads, Hip flexion Seated Reps: 20 (2 sets to increase strength and to improve safe mobility to return to home) Assessment Current Status: Excellent Progress Patient is slow to respond to PT instruction. Improved mobility noted. Family present and motivated with progress. PT Short Term Goals Short Term Goals Time Frame: Jul 18, 2017 Transfers (B,C,W/C) (FIM): 5 PT Fpc Goals Fpc Goals PT Lay Out Maker Goals Time Frame: Jul 24, 2017 Transfers (B,C,W/C) (FIM): 5 Gait (FIM): 2 Distance: 50' Gait Level of Assist: 4 Gait Assistive Device: FWW PT Plan Treatment/Plan Treatment Plan: Continue Plan of Care Treatment Plan: Bed Mobility, Concurrent Therapy, Education, Functional Activity Demario, Functional Strength, Gait, Safety, Therapeutic Exercise, Transfers Treatment Duration: Jul 24, 2017 Frequency: 6 times per week Estimated Hrs Per Day: .25 hour per day (15-30') Patient and/or Family Agrees t: Yes Time/GCodes Time In: 1020 Time Out: 1043 Total Billed Treatment Time: 23 Total Billed Treatment 1 visit GT 15 min EX 8 min KENDAL MANUEL PT Jul 18, 2017 10:54
--- NOTE | 2017-07-18 11:38 | Occupational Ther Daily Note ---
OT Current Status-Daily Note Subjective Pt sitting in chair with son present. Pt states she is tired, but agrees to treatment. No c/o pain. Mental Status/Objective Functional [place] Measure 0=Not Assessed/NA 4=Minimal Assistance 1=Total Assistance 5=Supervision or Setup 2=Maximal Assistance 6=Modified [place] 3=Moderate Assistance 7=Complete [place] ADL-Treatment Pt states she has already showered this morning with assist from nursing. Pt demonstrated ability to doff/don socks with SBA while seated in chair. Sit to stand with supervision. Gait to restroom with FWW. Pt stood at sink with SBA while brushing teeth. Occasional cues required for task completion. Pt reports fatigue, returned to chair with SBA. Pt sitting in chair with needs met and son present after session. Grooming (FIM): 5 Lower Body Dressing (FIM): 5 (socks only) OT Short Term Goals Short Term Goals Time Frame: Jul 31, 2017 Eating(FIM): 5 Grooming(FIM): 5 Bathing(FIM): 4 Upper Body Dressing(FIM): 5 Lower Body Dressing(FIM): 5 Toileting(FIM): 5 Transfers (B,C,W/C) (FIM): 5 Toilet/Commode Transfer(FIM): 5 Shower Transfer(FIM): 4 Additional Short Term Goals: 1-Demonstrate ADL Tasks, 2-Verbalize Understanding , 3-ImproveStrength/Demario 1=Demonstrate adherence to instructed precautions during ADL tasks. 2=Patient will verbalize/demonstrate understanding of assistive devices/ modifications for ADL. 3=Patient will improve strength/tolerance for activity to enable patient to perform ADL's. OT Copy Director Goals Copy Director Goals Time Frame: Aug 07, 2017 Eating (FIM): 6 Grooming(FIM): 6 Bathing(FIM): 5 Upper Body Dressing(FIM): 6 Lower Body Dressing(FIM): 6 Toileting(FIM): 6 Transfers (B,C,W/C) (FIM): 6 Toilet/Commode Transfer(FIM): 6 Shower Transfer(FIM): 5 Additional Goals: 1-Demonstrate ADL Tasks, 2-Verbalize Understanding, 3- ImproveStrength/Demario 1=Demonstrate adherence to instructed precautions during ADL tasks. 2=Patient will verbalize/demonstrate understanding of assistive devices/ modifications for ADL. 3=Patient will improve strength/tolerance for activity to enable patient to perform ADL's. OT Education/Plan Discharge Recommendations Plan/Recommendations: Continue POC Treatment Plan/Plan of Care Patient would benefit from OT for education, treatment and training to promote independence in ADL's, mobility, safety and/or upper extremity function for ADL' s. Plan of Care: ADL Retraining, Functional Mobility, UE Funct Exercise/Act Treatment Duration: Aug 07, 2017 Frequency: 5 times per week Estimated Hrs Per Day: .5 hour per day Agreement: Yes Rehab Potential: Good Time/GCodes Start Time: 11:01 Stop Time: 11:16 Total Time Billed (hr/min): 15 Billed Treatment Time 1 visit, ADL(15minutes) AGUILA FERNANDEZ OT Jul 18, 2017 11:38
[2017-07-18] MEDS ORDERED: FUROSEMIDE 20 MG (LASIX) TAB PO NR (13:00)
--- NOTE | 2017-07-18 14:24 | Progress Note-Hospitalist ---
Standard Progress Note Progress Notes/Assess & Plan Date Seen 07/18/17 Time Seen by Provider: 14:20 Diagnosis 1.sepsis/right upper lobe pneumonia and apparent UTI. 2.confusion/subacute lacunar infarct. 3.COPD. 4.hypertension. Assess & Plan/Chief Complaint The patient is sitting in the bedside chair. She is considerably more animated and alert than yesterday. She is afebrile. Her last fever was at 1720 on 07/16. Urine cultures showed Enterococcus faecalis sensitive to ampicillin levofloxacin and vancomycin. She is presently on Zosyn and levofloxacin. We will discontinue the Zosyn and observe. Physical exam: The patient is alert and animated. Lungs are clear to auscultation. CV was regular. Abdomen was soft. Impression: Sepsis, right upper lobe pneumonia and apparent urinary tract infection. 2.confusion improving, CT scan evidence of subacute lacunar infarct. 3.COPD. 4.hypertension, adjusting medications. Plan: Discontinue Zosyn. Continue Levaquin and IV fluids Labs Laboratory Tests 07/16/17 14:40 07/17/17 05:20 VASHTI MILES MD Jul 18, 2017 14:24
[2017-07-18] MEDS: ENOXAPARIN 40 MG/0.4 ML (LOVENOX) SYR SC SCH (20:23)
[2017-07-18] MEDS ORDERED: FAMOTIDINE 20MG/2ML IV (PEPCID) IVP SCH (21:00)
[2017-07-18] MEDS ORDERED: LEVOFLOXACIN 750 MG/D5W 150 ML PRE-MIX IV SCH (21:00)
[2017-07-19] VITALS: BP 173/105
[2017-07-19] MEDS: NS IV 1000 ML 1,000 ML IV SCH ×2 (00:55→08:55)
[2017-07-19 01:07] VITALS: BP 180/89
[2017-07-19 04:00] VITALS: BP 192/84
[2017-07-19] MEDS: inSUlin ASPART (NovoLOG) 1 UNIT/0.01 ML (CHARGE PER UNIT) SC SCH ×2 (06:07→11:58)
[2017-07-19] MEDS: RT-ALBUTEROL/IPRATROPIUM 3 ML (DUONEB) VIAL INH SCH ×2 (07:36→11:28)
[2017-07-19 07:42] VITALS: BP 192/84
[2017-07-19 08:00] VITALS: BP 186/91
[2017-07-19] MEDS: AMITRIPTYLINE 25 MG (ELAVIL) TAB PO SCH (08:55)
[2017-07-19] MEDS: VALSARTAN 80 MG (DIOVAN) TAB PO SCH (08:55)
[2017-07-19] MEDS: PANTOPRAZOLE 40 MG (PROTONIX) TAB PO SCH (08:55)
[2017-07-19] MEDS: metFORMIN 500 MG (GLUCOPHAGE) TAB PO SCH (08:55)
[2017-07-19] MEDS: SPIRONOLACTONE 25 MG (ALDACTONE) TAB PO SCH (08:56)
[2017-07-19] MEDS: ASPIRIN 325 MG (5 GR) TABLET PO SCH (08:56)
[2017-07-19] MEDS: carBAMazepine 200 MG (TEGretol) TAB PO SCH (08:56)
[2017-07-19] MEDS: ALLOPURINOL 300 MG (ZYLOPRIM) TAB PO SCH (08:56)
--- NOTE | 2017-07-19 09:04 | ST Cognitive Linguistic Eval ---
Speech Evaluation-General Medical Diagnosis CVA Onset Date: Jul 17, 2017 Therapy Diagnosis Therapy Diagnosis: Mild Expressive Aphasia Precautions Precautions/Isolations: Fall Prevention, Standard Precautions Referral Referring Physician: Dr. Quiana Mullen Reason for Referral: Evaluation/Treatment Speech, Language, Cognitive Evaluation Medical History Pertinent Medical History: CAD, COPD, HTN, Neuropathy Reviewed History: Yes Social History Current Living Status: Alone Speech PLF-Current Status Prior Level of Function The patient denied challenges with speech, language, or cognition prior to her recent CVA. Subjective The patient was recently admitted to [facility] following a CVA. The patient greeted the clinician appropriately and was agreeable to participation in the speech, language, and cognitive evaluation. The patient (and present family member) stated the patient continues to demonstrate "some confusion," as well as, difficulty "thinking of the words she wants to use." 07/16/17: CT: 1. Subacute right thalamic lacunar infarct measuring approximately 6 mm. Language Eval: Auditory Comprehends Simple Yes/No Ques: Functional Indent/Objects [place]: Functional Ident/Pics in [place]: Functional Follows 1-Step Commands: Functional Follows Complex Directions: Mild (Repetition required for increased accuracy, as well as, mild prompting.) Follows General Conversations: Mild Language Eval: Verbal Language Completes Spontaneous Greeting: Functional Produces Auto, Serial Info: Functional Imitates Simple Words/Phrases: Functional Word Finding: Moderate Requests Basic Needs: Mild States Basic Personal Info: Functional Expresses Complex Ideas: Mild The patient displays an intermittent delay with conversation and processing throughout verbal communication exchanges. Language Evaluation: Reading Comprehends Single Nouns: Functional Language Evaluation: Writing Writes to Simple Dictation: Functional Writes Personal Information: Functional Cognitive Patient Orientation The patient is oriented to month, year, and day of week. Objective Cognitive Domain Attention: WNL Memory: Mild Problem Solving: Mild Executive Functions: Mild Objective Impression The patient display mild expressive aphasia, as well as, a mild cognitive deficit characterized by reduced word-finding, memory, and problem solving. Speech Short Term Goals Short Term Goals Short Term Goals 1. The patient will display 90% accuracy with structured word-finding tasks with mild clinician verbal cueing. 2. The patient will continue to demonstrate 90% accuracy with simple orientation information, independently. 3. The patient will demonstrate 90% accuracy with safety problem solving (most notably, home environment), independently. Time Frame-STG: One Week Speech Director Personal Goals Half-Way Goals 1. The patient will display improved expressive communication through functional conversation. 2. The patient will demonstrate increased cognitive skills for improved safety and function with ADLs. Time Frame: Two Weeks Speech-Plan Treatment Plan Speech Therapy Treatment Plan: Continue Plan of Care Continue skilled speech pathology to target expressive communication. Treatment Duration: Aug 01, 2017 Frequency: 3 times per week Estimated Hrs Per Day: .25 hour per day Rehab Potential: Good Safety Risks/Education Teaching Recipient: Patient, Family Teaching Methods: Discussion Response to Teaching: Verbalize Understanding Education Topics Provided: Results, Plan of Care, Recommendations Time Speech Therapy Time In: 08:30 Speech Therapy Time Out: 08:50 Total Billed Time: 20 Billed Treatment Time 1, RICCI LANTIGUA Jul 19, 2017 09:04
[2017-07-19] MEDS ORDERED: amLODIPine 5 MG (NORVASC) TAB PO SCH (09:30)
[2017-07-19] MEDS ORDERED: ALBU2.5V4 IH (10:32)
[2017-07-19] MEDS ORDERED: LEVO750T39 PO (10:32)
[2017-07-19] MEDS ORDERED: ENOX40DI8 SC (10:32)
[2017-07-19] MEDS ORDERED: AMLO5TAB2 PO (10:32)
[2017-07-19] MEDS ORDERED: INSU100V16 SC (10:32)
[2017-07-19] MEDS ORDERED: VALS80TA PO (10:32)
[2017-07-19] MEDS ORDERED: FAMO20TA5 PO (10:32)
[2017-07-19] MEDS ORDERED: ACET-77 PO (10:32)
[2017-07-19] MEDS ORDERED: ASPI-808 PO (10:32)
[2017-07-19] MEDS ORDERED: IPRA3AMP INH (10:32)
--- NOTE | 2017-07-19 10:34 | Discharge Summary-Hospitalist ---
Diagnosis/Chief Complaint Date of Admission Jul 16, 2017 at 16:15 Date of Discharge Discharge Date: Jul 19, 2017 Admission Diagnosis 1.sepsis/right upper lobe pneumonia and apparent UTI. 2.confusion/subacute lacunar infarct. 3.COPD. 4.hypertension. Discharge Diagnosis 1.sepsis/right upper lobe pneumonia and apparent UTI. 2.confusion/subacute lacunar infarct. 3.COPD. 4.hypertension. 5. chronic anxiety 6. Chronic debility Discharge Summary Discharge Physical Examination Allergies: Coded Allergies: Iodinated Contrast- Oral and IV Dye (Unverified Allergy, Mild, 07/26/07) Vitals & I&Os Vital Signs Date Time Temp Pulse Resp B/P (MAP) Pulse Ox O2 Delivery O2 Flow Rate FiO2 07/19/17 08:00 99.3 93 20 186/91 95 Room Air 07/19/17 07:42 22 Hospital Course Hospital course: Patient had an uneventful hospital course she was admitted placed on empiric antibiotics for with sepsis due to pneumonia and UTI and all cultures followed out to completion. She is maintained on Levaquin antibiotic in addition to nebulizer treatments and aspirin initiation for the subacute lacunar infarct. Overall she was feeling much better but hypertension was elevated in addition still very weak and anxious and although she wanted to go home and was deemed a better plan to go to inpatient rehabilitation or snf of which rehabilitation graciously accepted this patient to try to strengthen and ultimately returned back to [facility]. Patient will be monitored closely and will be completing antibiotics during rehabilitation stay and will be managed by hospitalist service until discharge. Labs (last 24 hrs) Laboratory Tests 07/18/17 16:28: Glucometer 194H 07/18/17 20:32: Glucometer 297H 07/19/17 05:47: Glucometer 127H 07/19/17 10:42: Glucometer 279H Microbiology 07/16/17 Blood Culture - Preliminary, Resulted No growth 07/16/17 Urine Culture - Final, Complete Enterococcus Faecalis Pending Labs Laboratory Tests 07/19/17 05:47: Glucometer 127 07/19/17 10:42: Glucometer 279 Discharge Home Medications: Active Scripts Active Novolog (Insulin Aspart) 100 Unit/1 Ml Susp 0 Unit SC ACHS 30 Days Famotidine 20 Mg Tablet 20 Mg PO HS 30 Days Acetaminophen 500 Mg Tablet 1,000 Mg PO Q6H PRN 30 Days Aspirin 325 Mg Tablet 325 Mg PO DAILY 30 Days Diovan (Valsartan) 80 Mg Tablet 80 Mg PO DAILY 30 Days Amlodipine Besylate 5 Mg Tablet 5 Mg PO DAILY 30 Days Levofloxacin 750 Mg Tablet 750 Mg PO DAILY@2100 3 Days Iprat-Albut 0.5-3(2.5) mg/3 ml (Ipratropium/Albuterol Sulfate) 3 Ml Ampul.neb 3 Ml INH RTQID 7 Days Albuterol Sulfate 2.5 Mg/3 Ml Vial.neb 2.5 Mg IH Q2HR PRN 7 Days Enoxaparin Sodium 40 Mg/0.4 Ml Syringe 40 Mg SC Q24H 7 Days Reported Amitriptyline HCl 25 Mg Tablet 25 Mg PO BID Allopurinol 300 Mg Tablet 300 Mg PO DAILY Metformin HCl 500 Mg Tablet 500 Mg PO DAILY Spironolactone 25 Mg Tablet 25 Mg PO DAILY Carbamazepine 200 Mg Tablet 200 Mg PO BID Alprazolam 0.5 Mg Tablet 0.5 Mg PO TID PRN Citalopram HBr (Citalopram Hydrobromide) 20 Mg Tablet 20 Mg PO DAILY Lovastatin 40 Mg Tablet 40 Mg PO HS Pantoprazole Sodium 40 Mg Tablet.dr 40 Mg PO DAILY Trazodone HCl 100 Mg Tablet 100 Mg PO HS Instructions to patient/family Please see electonic discharge instructions given to patient. Clinical Quality Measures DVT/VTE Risk/Contraindication: Risk Factor Score Per Nursin RFS Level Per Nursing on Admit: 4+=Very High MARICRUZ DANGELO DO Jul 19, 2017 10:34
--- NOTE | 2017-07-19 11:13 | Physical Therapy Daily Note ---
PT Daily Note-Current Subjective Pt sitting in recliner upon arrival. Pt agrees to PT with encouragement from family. Physician Practice Administrator from [facility] comes up to discuss coming down to ARU. Pain Location: No Pain Reported Mental Status Patient Orientation: Person, Confused Attachments: IV Transfers Functional [place] Measure 0=Not Assessed/NA 4=Minimal Assistance 1=Total Assistance 5=Supervision or Setup 2=Maximal Assistance 6=Modified [place] 3=Moderate Assistance 7=Complete IndependenceIRFPAI Quality Coding Scale 6 Independent with activity with or without an assistive device 5 Patient requires set up or clean up by helper. Patient completes activity by themselves 4 Supervision or touching assist (CGA). [place] provide cues , steadying assist 3 The helper provides less than half the effort to complete the activity 2 The helper provides more than half the effort to complete the activity 1 Dependent. The helper does all the effort to complete an activity 7 Patient refused to complete or attempt activity 9 The patient did not perform the activity before the current illness or injury 88 Not attempted due to Medical conditions or safety concerns [place]in Sit to/from Stand: 5 Weight Bearing Weight Bearing Restriction: Full Weight Bearing Location Restriction: LE Bilateral Gait Training Distance (FIM): 3=150 ft Distance: 250' Gait Level of Assist: 5 Gait Persons Needed: 1 Gait Assistive Device: FWW Pt walks with slow but steady gait. Treatments Pt transfers from recliner to standing using FWW at [facility]. Pt uses restroom before returning to recliner to rest before ambulation. Pt ambulates in hallway before returning to room to rest in recliner and visit with family. Pt has all needs met at end of tx. Assessment Current Status: Good Progress Pt has improved with transfers and mobility although pt remains confused at times. PT Short Term Goals Short Term Goals Time Frame: Jul 18, 2017 Transfers (B,C,W/C) (FIM): 5 PT Electro Optical Engineer Goals Electro Optical Engineer Goals PT Electro Optical Engineer Goals Time Frame: Jul 24, 2017 Transfers (B,C,W/C) (FIM): 5 Gait (FIM): 2 Distance: 50' Gait Level of Assist: 4 Gait Assistive Device: FWW PT Plan Problem List Problem List: Activity Tolerance, Safety, Balance, Gait Treatment/Plan Treatment Plan: Continue Plan of Care Treatment Plan: Bed Mobility, Concurrent Therapy, Education, Functional Activity Demario, Functional Strength, Gait, Safety, Therapeutic Exercise, Transfers Treatment Duration: Jul 24, 2017 Frequency: 6 times per week Estimated Hrs Per Day: .25 hour per day (15-30') Patient and/or Family Agrees t: Yes Safety Risks/Education Patient Education: Gait Training, Transfer Techniques, Correct Positioning, Safety Issues Teaching Recipient: Patient Teaching Methods: Discussion Response to Teaching: Verbalize Understanding Time/GCodes Time In: 955 Time Out: 1025 Total Billed Treatment Time: 30 Total Billed Treatment visit, FA (10m) & GT (20m) KRISTA GONZALEZ MANAGER PRODUCT SUPPORT Jul 19, 2017 11:13
[2017-07-19] MEDS ORDERED: FAMOTIDINE 20 MG (PEPCID) TABLET PO SCH (21:00)
[2017-07-19] MEDS ORDERED: LEVOFLOXACIN 750 MG TAB (LEVAQUIN) PO SCH (21:00)
== END 2017-07-19 12:05 | DRG 871 ==
LOC: EDUNIT# 14:17 → ER 14:19 → 4TH 16:15
PROVIDERS: ADMIT Internal Medicine; ATTEND Internal Medicine
DX: A41.81 Sepsis due to Enterococcus (principal); J44.0 Chronic obstructive pulmonary disease with (acute) lower respiratory infection; J18.9 Pneumonia, unspecified organism; N39.0 Urinary tract infection, site not specified; I63.9 Cerebral infarction, unspecified; F17.210 Nicotine dependence, cigarettes, uncomplicated; Z66 Do not resuscitate; R41.0 Disorientation, unspecified; R25.1 Tremor, unspecified; I10 Essential (primary) hypertension; I25.10 Atherosclerotic heart disease of native coronary artery without angina pectoris; I34.1 Nonrheumatic mitral (valve) prolapse; E11.9 Type 2 diabetes mellitus without complications; F32.9 Major depressive disorder, single episode, unspecified; F41.9 Anxiety disorder, unspecified; M10.9 Gout, unspecified; J30.2 Other seasonal allergic rhinitis; R32 Unspecified urinary incontinence; R53.81 Other malaise; H91.90 Unspecified hearing loss, unspecified ear; Z79.84 Long term (current) use of oral hypoglycemic drugs; Z86.73 Personal history of transient ischemic attack (TIA), and cerebral infarction without residual deficits; Z85.828 Personal history of other malignant neoplasm of skin; Z90.49 Acquired absence of other specified parts of digestive tract
CPT/HCPCS: 36415; 51701; 70450; 71010; 76937; 80053; 80061; 81000; 82962; 83036; 83605; 85007; 85025; 85027; 85610; 85730; 87040; 87077; 87088; 87186; 93005; 93306; 94640; 94760; 96361; 96365

== ENCOUNTER 2017-07-19 11:50 | Inpatient (IN) | payer MEDICARE ==
[~2017-07-19] VITALS: Ht 152.4 cm; Wt 76.2 kg
[~2017-07-19 11:50] MED LIST changes: +ACET-77 PO; +ALBU2.5V4 IH; +ALLO300T2 PO; +ALPR0.5T7 PO; +AMLO5TAB2 PO; +ASPI-808 PO; +CARB200T6 PO; +CITA20TA7 PO; +ENOX40DI8 SC; +INSU100V16 SC; +IPRA3AMP INH; +LEVO750T39 PO; +LOVA40TA2 PO; +METF500T4 PO; +PANT40TA3 PO; +SPIR25TA3 PO; +TRAZ100T92 PO; +VALS80TA PO
[2017-07-19 12:15] VITALS: BP 188/85
--- NOTE | 2017-07-19 13:14 | Physical Therapy Evaluation ---
PT Evaluation-General Medical Diagnosis Admission Date Jul 19, 2017 at 12:00 Medical Diagnosis: sepsis; RUL pneumonia Onset Date: Jul 16, 2017 Therapy Diagnosis Therapy Diagnosis: weakness/abn gait Height/Weight Height (Feet): 5 Height (Inches): 1.00 Weight (Pounds): 164 Weight (Ounces): 14.0 Precautions Precautions/Isolations: Standard Precautions Referral Physician: Sim Reason for Referral: Evaluation/Treatment Medical History Pertinent Medical History: CAD, COPD, HTN, Neuropathy, Smoking Additional Medical History TIA; diverticulitis Current History Admitted to acute on 07/16/17 with sepsis/pneumonia and AMS. Transferred to ARU this date. Reviewed History: Yes Social History Home: Apartment ([facility]) Current Living Status: Alone Entry Into Home: Level Entry Prior/Core FIM Prior Level of Function Functional [place] Measure 0=Not Assessed/NA 4=Minimal Assistance 1=Total Assistance 5=Supervision or Setup 2=Maximal Assistance 6=Modified [place] 3=Moderate Assistance 7=Complete [place] Bed Mobility: 7 Transfers (B,C,W/C) (FIM): 7 Gait: 6 (Has a FWW but often walks without AD.) Is still able to drive; does own shopping. PT Evaluation-Current Subjective Pt agreeable to PT. Pt reports she is fearful of stairs, does not want to attempt them right now. Pain Numeric Pain Scale: 0-No Pain Location: No Pain Reported Pt/Family Goals Return home as before. Objective Patient Orientation: Person, Confused (slightly), Place, Time, Situation Problem Solving: Fair (bed/chair alarm and telesitter) ROM/Strength ROM Lower Extremities WNL all planes Strenght Lower Extremities grossly 4/5 Integumentary/Posture Integumentary refer to nursing notes Bowel Incontinence: No Bladder Incontinence: No Posture Normal and symmetrical Neuromuscular (Tone, Coordination, Reflexes) no noted functional deficits Sensory Vision: Functional Hearing: Functional Hand Dominance: Right Sensation Right Lower Extremit: Intact Sensation Left Lower Extremity: Intact Transfers Functional [place] Measure 0=Not Assessed/NA 4=Minimal Assistance 1=Total Assistance 5=Supervision or Setup 2=Maximal Assistance 6=Modified [place] 3=Moderate Assistance 7=Complete IndependenceIRFPAI Quality Coding Scale 6 Independent with activity with or without an assistive device 5 Patient requires set up or clean up by helper. Patient completes activity by themselves 4 Supervision or touching assist (CGA). [place] provide cues , steadying assist 3 The helper provides less than half the effort to complete the activity 2 The helper provides more than half the effort to complete the activity 1 Dependent. The helper does all the effort to complete an activity 7 Patient refused to complete or attempt activity 9 The patient did not perform the activity before the current illness or injury 88 Not attempted due to Medical conditions or safety concerns Transfers (B, C, W/C) (FIM): 3 Scootin Rollin Roll Left to Right (QC): 5 Supine to/from Sit: 3 (mod assist to lift her trunk from supine) Sit to/from Stand: 4 (CGA with skilled cues for hand placement) Sit to Lying (QC): 4 Lying to Sitting/Side of Bed(Q: 3 Sit to Stand (QC): 4 Chair/Wix-hj-Ytkzs Xfer(QC): 4 Car Transfer (QC): 88 Gait Does the Patient Walk?: Yes Mode of Locomotion: Walk Anticipated Mode of Locomotion: Walk Gait (FIM): 2 Distance (FIM): 9=526-20 ft Walk 10 feet (QC): 4 Walk 50 ft with 2 Turns(QC): 4 Walk 150 ft (QC): 88 Walking 10ft/uneven surface-QC: 4 Gait Assistive Device: FWW Wheelchair Training Does the Pt Use a Wheelchair?: No Stairs Stairs (FIM): 1 #of Steps: 1 Level of Assist: 4 1 Step (curb) (QC): 4 12 Steps (QC): 88 Balance Sitting Static: Good Sitting Dynamic: Good Standing Static: Fair Standing Dynamic: Fair Picking up an Object (QC): 3 Treatment Worked on safety and sequencing with functional transfers. Education on PT POC and progression Assessment/Needs Presents with gross functional weakness that limits ability to mobilize safely and without assist. She will benefit from skilled PT intervention to work on strength, transfers, gait and safety to allow her to return to living alone. Rehab Potential: Good PT Short Term Goals Short Term Goals Time Frame: Jul 26, 2017 Transfers (B,C,W/C) (FIM): 4 Gait (FIM): 4 PT Licensed Appraiser Goals Licensed Appraiser Goals PT Licensed Appraiser Goals Time Frame: Aug 04, 2017 Transfers (B,C,W/C) (FIM): 7 Sit to Lying (QC): 6 Lying-Sitting on Side/Bed(QC): 6 Sit to Stand (QC): 6 Roll Left to Right (QC): 6 Chair/Ezz-cc-Iyndv Xfer(QC): 6 Car Transfer (QC): 5 Does the Patient Walk: Yes Gait (FIM): 6 Gait distance (FIM): 3=150 ft Walk 10 feet (QC): 6 Walk 10ft-Uneven Surface(QC): 6 Walk 50ft with 2 Turns (QC): 6 Walk 150 ft (QC): 6 Gait Assistive Device: FWW Does the Pt use WC or Scooter?: No Stairs (FIM): 5 # of Steps: 8 1 Step (curb) (QC): 6 4 Steps (QC): 5 12 Steps (QC): 88 Picking up an Object (QC): 5 All LTG's are set with plan for pt to return home alone and care for herself. PT Plan Problem List Problem List: Activity Tolerance, Functional Strength, Safety, Balance, Gait, Transfer, Bed Mobility Treatment/Plan Treatment Plan: Continue Plan of Care Treatment Plan: Bed Mobility, Education, Functional Activity Demario, Functional Strength, Group Therapy, Gait, Safety, Therapeutic Exercise, Transfers Treatment Duration: Aug 04, 2017 Frequency: At least 5 to 7 days/Wk (IRF) Estimated Hrs Per Day: 1.5 hours per day Patient and/or Family Agrees t: Yes Safety Risks/Education Patient Education: Transfer Techniques, Safety Issues Teaching Recipient: Patient Teaching Methods: Discussion Response to Teaching: Reinforcement Needed Discharge Recommendations Therapy D/C Recommendations: Physical Therapy Home Care Time/GCodes Time In: 1200 Time Out: 1230 Total Billed Treatment Time: 30 Total Billed Treatment visit EVM 15 FA 15 MARTÍN HAGEN PT Jul 19, 2017 13:14
[2017-07-19] MEDS ORDERED: RT-ALBUTEROL SULF 2.5 MG/3 ML PRE-MIX VIAL IH PRN ×2 (14:15→14:19)
[2017-07-19] MEDS ORDERED: ENOXAPARIN 40 MG/0.4 ML (LOVENOX) SYR SC SCH ×3 (14:15→20:00)
[2017-07-19] MEDS ORDERED: ALPRAZolam 0.5 MG (XANAX) TAB PO PRN ×2 (14:15→14:19)
[2017-07-19] MEDS ORDERED: inSUlin ASPART (NovoLOG) 1 UNIT/0.01 ML (CHARGE PER UNIT) SC SCH ×2 (14:19→16:00)
[2017-07-19] MEDS ORDERED: metFORMIN 500 MG (GLUCOPHAGE) TAB PO SCH (14:19)
[2017-07-19] MEDS ORDERED: ACETAMINOPHEN 500 MG TAB (TYLENOL) PO PRN (14:19)
[2017-07-19] MEDS ORDERED: SPIRONOLACTONE 25 MG (ALDACTONE) TAB PO SCH (14:19)
[2017-07-19] MEDS ORDERED: ASPIRIN 325 MG (5 GR) TABLET PO SCH (14:19)
[2017-07-19] MEDS ORDERED: MILK OF MAGNESIA 400 MG/5 ML 30 ML UDC PO PRN (14:19)
[2017-07-19] MEDS ORDERED: ALLOPURINOL 300 MG (ZYLOPRIM) TAB PO SCH (14:19)
[2017-07-19] MEDS ORDERED: AMITRIPTYLINE 25 MG (ELAVIL) TAB PO SCH (14:19)
[2017-07-19] MEDS ORDERED: carBAMazepine 200 MG (TEGretol) TAB PO SCH (14:19)
[2017-07-19] MEDS ORDERED: RT-ALBUTEROL/IPRATROPIUM 3 ML (DUONEB) VIAL INH SCH ×2 (14:19→18:00)
[2017-07-19] MEDS ORDERED: amLODIPine 5 MG (NORVASC) TAB PO SCH (14:19)
[2017-07-19] MEDS ORDERED: VALSARTAN 80 MG (DIOVAN) TAB PO SCH (14:19)
[2017-07-19] MEDS ORDERED: PANTOPRAZOLE 40 MG (PROTONIX) TAB PO SCH (14:19)
--- NOTE | 2017-07-19 14:35 | ST Cognitive Linguistic Eval ---
Speech Evaluation-General Medical Diagnosis sepsis; RUL pneumonia Onset Date: Jul 16, 2017 Therapy Diagnosis Therapy Diagnosis: Mild Expressive Aphasia, Mild Cognitive Impairment Precautions Precautions/Isolations: Standard Precautions Referral Referring Physician: Dr. Jordy Montemayor Reason for Referral: Evaluation/Treatment Cognitive Evaluation Medical History Pertinent Medical History: CAD, COPD, HTN, Neuropathy, Smoking Reviewed History: Yes Social History Current Living Status: Alone Speech PLF-Current Status Prior Level of Function The patient denied prior deficits with speech, language, or cognition before her recent hospitalization and diagnosis of CVA. Subjective The patient was recently admitted to [facility] with a diagnosis of CVA, sepsis, and pneumonia. The patient greeted the clinician appropriately and was agreeable to participation in the cognitive, speech, and language evaluation. Per patient, she has noticed some confusion, as well as, "some words just not coming out right." Language Eval: Auditory Comprehends Simple Yes/No Ques: Functional Indent/Objects [place]: Functional Ident/Pics in [place]: Functional (A minimal delay was noted with black and white image naming.) Follows 1-Step Commands: Functional Follows Complex Directions: Mild (Repetition of instructions, as well as, a delay was present prior to demonstration of command.) Follows General Conversations: Mild Language Eval: Verbal Language Completes Spontaneous Greeting: Functional Produces Auto, Serial Info: Functional Imitates Simple Words/Phrases: Functional Word Finding: Moderate Requests Basic Needs: Mild States Basic Personal Info: Mild Expresses Complex Ideas: Mild Language Evaluation: Writing Writes to Simple Dictation: Functional Writes Personal Information: Functional Cognitive Patient Orientation The patient was oriented to month, year, day of week, and date. Objective Cognitive Domain Attention: Mild Memory: Mild Problem Solving: Mild Executive Functions: Moderate Clock Drawing Severity Rating: Mild (The patient was able to draw an accurate contour and time, however, could not place numbers.) Objective Impression The patient displayed mild expressive aphasia and mild cognitive impairments in the areas of word-finding, attention, memory, and problem solving. Communication/Social Cognition Comprehension: 4 Expression: 3 Social Interaction: 5 Problem Solvin Memory: 3 Speech Patient Assess Expression of Ideas/Wants: Exhibits (3) Understanding [place] Content: Usually Understands (3) Brief Interview-Mental Status: Yes Repetition of Three Words: Three (3) Temporal Orientation: Year: Correct (3) Temporal Orientation: Month: Accurate within 5 days(2) Temporal Orientation: Day: Correct (1) Recall : Wear to say "Sock": No, could not recall (0) Recall : Color: Yes, no cue required (2) Recall : Bed: Yes, no cue required (2) Speech Short Term Goals Short Term Goals Short Term Goals 1. The patient will display 90% accuracy with structured word-finding tasks with mild clinician verbal cueing. 2. The patient will continue to demonstrate 90% accuracy with simple orientation information, independently. 3. The patient will demonstrate 90% accuracy with safety problem solving (most notably, home environment), independently. Time Frame-STG: One Week Speech Alf Goals Alf Goals 1. The patient will display improved expressive communication through functional conversation. 2. The patient will demonstrate increased cognitive skills for improved safety and function with ADLs. Time Frame: Two Weeks Comprehension: 5 Expression: 4 Social Interaction: 5 Problem Solvin Memory: 4 Speech-Plan Treatment Plan Speech Therapy Treatment Plan: Continue Plan of Care Continue skilled speech pathology to target functional expressive communication and problem solving. Frequency: At least 5 to 7 days/Wk (IRF) Estimated Hrs Per Day: .5 hour per day Rehab Potential: Good Safety Risks/Education Teaching Recipient: Patient Teaching Methods: Discussion Response to Teaching: Verbalize Understanding Education Topics Provided: Plan of Care, Results, Recommendations Time Speech Therapy Time In: 14:00 Speech Therapy Time Out: 14:25 Total Billed Time: 25 Billed Treatment Time 1, RICCI LANTIGUA Jul 19, 2017 14:35
--- NOTE | 2017-07-19 15:14 | Occupational Therapy Eval ---
OT Evaluation-General/PLF Medical Diagnosis Admission Date Jul 19, 2017 at 12:00 Medical Diagnosis: sepsis; RUL pneumonia/CVA Onset Date: Jul 16, 2017 Therapy Diagnosis Therapy Diagnosis: Weakness Height/Weight Height (Feet): 5 Height (Inches): 1.00 Weight (Pounds): 164 Weight (Ounces): 14.0 Precautions Precautions/Isolations: Fall Prevention, Standard Precautions, Pressure Ulcer Weight Bear Status Weight Bearing Restriction: Weight Bearing/Tolerated Referral Physician: Sim Referral Reason: Activity Tolerance, Self Care, Evaluation/Treatment, Strengthening/ROM Medical History Pertinent Medical History: CAD, COPD, CVA, HTN, Neuropathy, Smoking Additional Medical History partial colectomy, appendectomy, hysterectomy, mitral valve prolapse Current History Lives in [place]. Family found her unconscious. Reviewed History: Yes Social History Home: Apartment ([place].) Current Living Status: Alone Entry Into Home: Level Entry ADL-Prior Level of Function ADL PLOF Comments Pt. was independent with basic self care and driving. DME/Equipment: Tub/Shower DME/Equipment Comments Pt. has built in shower seat. Has walker that she uses "sometimes." Drive Self: Yes OT Current Status Subjective No pain reported. Pt. states that she is tired. Appearance Pt. in bed. Agrees to work with OT. Mental Status/Objective Patient Orientation: Unable to Assess Pt. states that she knows where she is, but can't state the name of it. Is able to state "I had a mini stroke." Attachments: IV Current Glasses/Contacts: Yes Dentures/Partials: Yes Hand Dominance: Right Upper Extremity ROM Pt. is able to flex bilateral shoulders to approximately 90 degrees sitting. Pt. is able to move bilateral UE in all other planes in all other distal joints. Upper Extremity Coordination intact bilaterally with simple testing. Upper Extremity Strength 3/5 proximally bilaterally, 3+/5 distally bilaterally Upon simple testing, pt. can demonstrate coordination patterns to complete a task. However, when given a large task to do, she struggles with the sequencing , such as putting soap on washcloth and then washing body. ADL-Treatment Functional [place] Measure 0=Not Assessed/NA 4=Minimal Assistance 1=Total Assistance 5=Supervision or Setup 2=Maximal Assistance 6=Modified [place] 3=Moderate Assistance 7=Complete IndependenceIRFPAI Quality Coding Scale 6 Independent with activity with or without an assistive device 5 Patient requires set up or clean up by helper. Patient completes activity by themselves 4 Supervision or touching assist (CGA). [place] provide cues , steadying assist 3 The helper provides less than half the effort to complete the activity 2 The helper provides more than half the effort to complete the activity 1 Dependent. The helper does all the effort to complete an activity 7 Patient refused to complete or attempt activity 9 The patient did not perform the activity before the current illness or injury 88 Not attempted due to Medical conditions or safety concerns Grooming (FIM): 5 (Pt. is able to brush hair with set up.) Bathing (FIM): 4 (Pt. requires CGA in stance, and constant cues to sequence steps to bathe self. Forgot that she washed her feet and stated, "I need to wash my feet.") Shower/Bathe Self (QC): 4 Lower Body Dressing (FIM): 5 (Pt. is able to doff underwear with SBA, and doff/ don socks with SBA. No street clothing available.) Lower Body Dressing (QC): 4 On/Off Footwear (QC): 4 Transfers (B, C, W/C) (FIM): 4 Shower Transfer (FIM): 4 Education OT Patient Education: Modified ADL techniques, Progress toward Goal/Update tx plan, Purpose of tx/functional activities, Reviewed precautions, Rehab process, Transfer techniques Teaching Recipient: Patient Teaching Methods: Demonstration, Discussion Response to Teaching: Verbalize Understanding, Return Demonstration OT Short Term Goals Short Term Goals Transfers (B,C,W/C) (FIM): 4 1=Demonstrate adherence to instructed precautions during ADL tasks. 2=Patient will verbalize/demonstrate understanding of assistive devices/ modifications for ADL. 3=Patient will improve strength/tolerance for activity to enable patient to perform ADL's. OT [facility] Goals Household Appliances Salesperson Goals Time Frame: Aug 02, 2017 Eating (FIM): 6 Eating (QC): 6 Groomin Oral Hygiene (QC): 6 Bathing(FIM): 5 Shower/Bathe Self (QC): 5 Upper Body Dressing(FIM): 6 Upper Body Dressing (QC): 5 Lower Body Dressing(FIM): 6 Lower Body Dressing (QC): 5 On/Off Footwear (QC): 5 Toileting(FIM): 6 Toileting Hygiene (QC): 5 Transfers (B,C,W/C) (FIM): 6 Toilet/Commode Transfer(FIM): 6 Toilet/Commode Transfer (QC): 5 Shower Transfer(FIM): 5 Comprehension(FIM): 5 Expression (FIM): 4 Social Interaction(FIM): 5 Problem Solving(FIM): 4 Memory(FIM): 4 1=Demonstrate adherence to instructed precautions during ADL tasks. 2=Patient will verbalize/demonstrate understanding of assistive devices/ modifications for ADL. 3=Patient will improve strength/tolerance for activity to enable patient to perform ADL's. OT Education/Plan Problem List/Assessment Assessment: Decreased Activ Tolerance, Decreased UE Strength, Dependent Transfers, Impaired Bed Mobility, Impaired Cognition, Impaired Funct Balance, Impaired I ADL's, Impaired Self-Care Skills, Restricted Funct UE ROM Discharge Recommendations Plan/Recommendations: Continue POC Therapy D/C Recommendations: Home w/ Family Support, Occupational Therapy Home Care Barriers to Progress Cognition Treatment Plan/Plan of Care Treatment,Training & Education: Yes Patient would benefit from OT for education, treatment and training to promote independence in ADL's, mobility, safety and/or upper extremity function for ADL' s. Plan of Care: ADL Retraining, Functional Mobility Treatment Duration: Aug 02, 2017 Frequency: At least 5 to 7 days/Wk (IRF) Estimated Hrs Per Day: 1.5 hours per day Agreement: Yes Rehab Potential: Good Time/GCodes Start Time: 12:30 Stop Time: 15:00 Total Time Billed (hr/min): 65 Billed Treatment Time [id number] 1, EVM x 30minutes [id number] 1, ADL x 35minutes GERARDO BLANKENSHIP OT Jul 19, 2017 15:14
--- NOTE | 2017-07-19 15:20 | Physical Therapy Daily Note ---
PT Daily Note-Current Subjective Pt sitting at EOB upon arrival. Pt agrees to PT but needs to use restroom before leaving room. Pain Location: No Pain Reported Mental Status Patient Orientation: Person, Confused Transfers Functional [place] Measure 0=Not Assessed/NA 4=Minimal Assistance 1=Total Assistance 5=Supervision or Setup 2=Maximal Assistance 6=Modified [place] 3=Moderate Assistance 7=Complete IndependenceIRFPAI Quality Coding Scale 6 Independent with activity with or without an assistive device 5 Patient requires set up or clean up by helper. Patient completes activity by themselves 4 Supervision or touching assist (CGA). [place] provide cues , steadying assist 3 The helper provides less than half the effort to complete the activity 2 The helper provides more than half the effort to complete the activity 1 Dependent. The helper does all the effort to complete an activity 7 Patient refused to complete or attempt activity 9 The patient did not perform the activity before the current illness or injury 88 Not attempted due to Medical conditions or safety concerns Scootin Rollin Supine to/from Sit: 4 Sit to/from Stand: 5 Sit to Lying (QC): 4 Sit to Stand (QC): 5 Weight Bearing Weight Bearing Restriction: Full Weight Bearing Location Restriction: LE Bilateral Gait Training Does the Patient Walk?: Yes Distance (FIM): 3=150 ft Distance: 250' Walk 10 feet (QC): 5 Walk 50 ft with 2 Turns(QC): 5 Walk 150 ft (QC): 5 Gait Level of Assist: 5 Gait Persons Needed: 1 Gait Assistive Device: FWW Pt walks with slow but steady gait. Pt gets a little confused at times so PT stays at close SBA for safety. Wheelchair Training Does the Pt Use a Wheelchair?: No Exercises Seated Therapy Exercises: Ankle pumps, Long arc quads, Hip flexion, Kicking activity, Hip abd/add Seated Reps: 20 NuStep Minutes: 10 NuStep Workload: 3 Treatments Pt transferred from EOB to standing using FWW at SBA. Pt ambulated using FWW at close SBA. Pt used NuStep for 10m at Workload 3 followed by Seated Ex in chair. Pt then ambulated in hallway again on way back to room. Pt transferred from standing to EOB at SBA then EOB to Sidelying at CGA and rolled to remove extra gown. Pt rested in bed with all needs met at end of tx. Assessment Current Status: Good Progress Pt fatigues easily although completes all tasks PT asked. Pt gets a little confused at times so there are some safety concerns. PT Short Term Goals Short Term Goals Time Frame: Jul 26, 2017 Transfers (B,C,W/C) (FIM): 4 Gait (FIM): 4 PT Lpta Goals Lpta Goals PT Residential Goals Time Frame: Aug 04, 2017 Transfers (B,C,W/C) (FIM): 7 Sit to Lying (QC): 6 Lying-Sitting on Side/Bed(QC): 6 Sit to Stand (QC): 6 Rollin Roll Left to Right (QC): 6 Chair/Cvx-ni-Csrvl Xfer(QC): 6 Car Transfer (QC): 5 Does the Patient Walk: Yes Gait (FIM): 6 Gait distance (FIM): 3=150 ft Walk 10 feet (QC): 6 Walk 10ft-Uneven Surface(QC): 6 Walk 50ft with 2 Turns (QC): 6 Walk 150 ft (QC): 6 Gait Assistive Device: FWW Does the Pt use WC or Scooter?: No Stairs (FIM): 5 # of Steps: 8 1 Step (curb) (QC): 6 4 Steps (QC): 5 12 Steps (QC): 88 Picking up an Object (QC): 5 PT Plan Problem List Problem List: Activity Tolerance, Functional Strength, Safety, Balance, Gait, Transfer, Bed Mobility Treatment/Plan Treatment Plan: Continue Plan of Care Treatment Plan: Bed Mobility, Education, Functional Activity Demario, Functional Strength, Group Therapy, Gait, Safety, Therapeutic Exercise, Transfers Treatment Duration: Aug 04, 2017 Frequency: At least 5 to 7 days/Wk (IRF) Estimated Hrs Per Day: 1.5 hours per day Patient and/or Family Agrees t: Yes Safety Risks/Education Patient Education: Gait Training, Transfer Techniques, Correct Positioning, Safety Issues Teaching Recipient: Patient Teaching Methods: Discussion Response to Teaching: Reinforcement Needed Time/GCodes Time In: 1300 Time Out: 1400 Total Billed Treatment Time: 60 Total Billed Treatment visit, GT x2 (30m) & EX x2 (30m) KRISTA GONZALEZ MILLING MACHINE SET UP OPERATOR Jul 19, 2017 15:20
[2017-07-19] MEDS: RT-ALBUTEROL/IPRATROPIUM 3 ML (DUONEB) VIAL INH SCH ×2 (15:45→19:32)
[2017-07-19] MEDS: inSUlin ASPART (NovoLOG) 1 UNIT/0.01 ML (CHARGE PER UNIT) SC SCH ×2 (16:22→21:06)
--- NOTE | 2017-07-19 18:26 | PM&R Post Admission Assessment ---
Post Admission Physician Asses The preadmission screen agrees with the post admission assessment that the patient is a good candidate for inpatient rehabilitation. The patient will have a comprehensive program of inpatient rehabilitation with a goal of maximizing level of functional independence prior to discharge home with [facility]. The patient will have PT/OT ninety minutes per day, each discipline , five days a week for 17 days for gait, strengthening, conditioning, balance, ADLs, any patient/family/caregiver training as necessary. Speech therapy to do cognitive and speech assessment and treat as indicated 3to 5 days a week for 30 to 45 minutes per day for 17 days. Rehabilitation nursing to assist with bowel, bladder, skin, wound care, medication administration, pain management. Numerical Control Machine Operator to assist with discharge planning, community reentry. Lovenox SQ for DVT prophylaxis. She appears to be well motivated to participate in three hours of therapy a day. She should be able to tolerate three hours of therapy a day from a medical standpoint. She should benefit from the three hours of therapy a day. She has a reasonable discharge plan, reasonable discharge rehabilitation goals and a supportive family. She has various comorbidities that need to be closely monitored with medications and treatments adjusted on a daily basis as needed. These include: UTI Pneumonia COPD DM HTN Barriers to discharge for this patient who had been independent prior to this are for her to be modified independent to supervision for ADLs and mobility skills prior to discharge home with [family], so as to lessen the burden of the caregivers. Risks for this patient include: 1. Fall 2. Fracture 3. DVT 4. Pulmonary embolism 5. Poorly controlled DM 6. Skin breakdown 7. Contractures 8. Poorly controlled pain 9. Urinary retention 10. Recurrent UTI 11. Recurrent Respiratory infection 12. Aspiration 13. Acute exacerbation of COPD 14. Worsening anxiety 15. Worsening Insomnia 16. Recurrent stroke Estimated Length of Stay: 17 days Prognosis: Rehab prognosis appears good for goal of discharge home with [facility] modified independent to supervision for ADLs and mobility skills. RADHA FONG MD Jul 19, 2017 18:26
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
[2017-07-19] MEDS: LEVOFLOXACIN 750 MG TAB (LEVAQUIN) PO SCH (20:31)
[2017-07-19] MEDS: FAMOTIDINE 20 MG (PEPCID) TABLET PO SCH (20:31)
[2017-07-19] MEDS: AMITRIPTYLINE 25 MG (ELAVIL) TAB PO SCH (20:31)
[2017-07-19] MEDS: ATORVASTATIN 40 MG (LIPITOR) TABLET PO SCH (20:31)
[2017-07-19] MEDS: ENOXAPARIN 40 MG/0.4 ML (LOVENOX) SYR SC SCH (20:31)
[2017-07-19] MEDS: carBAMazepine 200 MG (TEGretol) TAB PO SCH (20:31)
[2017-07-19] MEDS ORDERED: LEVOFLOXACIN 750 MG TAB (LEVAQUIN) PO SCH (21:00)
[2017-07-19] MEDS ORDERED: traZODone 100 MG (DESYREL) TAB PO SCH (21:00)
[2017-07-19] MEDS ORDERED: FAMOTIDINE 20 MG (PEPCID) TABLET PO SCH (21:00)
[2017-07-20] MEDS: RT-ALBUTEROL/IPRATROPIUM 3 ML (DUONEB) VIAL INH SCH ×4 (02:17→21:35)
[2017-07-20 05:00] VITALS: BP 179/87
[2017-07-20] MEDS: inSUlin ASPART (NovoLOG) 1 UNIT/0.01 ML (CHARGE PER UNIT) SC SCH ×4 (06:50→21:11)
[2017-07-20] MEDS: PANTOPRAZOLE 40 MG (PROTONIX) TAB PO SCH (06:56)
[2017-07-20] MEDS: metFORMIN 500 MG (GLUCOPHAGE) TAB PO SCH (06:56)
[2017-07-20] MEDS ORDERED: metFORMIN 500 MG (GLUCOPHAGE) TAB PO SCH (08:00)
--- NOTE | 2017-07-20 08:08 | PM & R (SOAP) Progress Note ---
Subjective Time Seen by Provider: 07:45 Subjective/Events-last exam Patient was seen in her room this AM Patient Min assist for transfers Adjusting well to unit.Therapy notes appreciated. Accuchecks noted Review of Systems Neurological: Weakness Objective Exam Last Set of Vital Signs Vital Signs Date Time Temp Pulse Resp B/P (MAP) Pulse Ox O2 Delivery O2 Flow Rate FiO2 07/20/17 07:02 94 Room Air 07/20/17 05:00 98.0 101 20 179/87 Capillary Refill : I&O Intake and Output 07/21/17 00:00 Intake Total 500 ml Balance 500 ml Intake Oral 500 ml # Voids 4 # Bowel Movements 2 General: Alert, Cooperative, No Acute Distress HEENT: Atraumatic, PERRLA, EOMI, Mucous Memb Moist/Louisa Neck: Supple, No JVD Lungs: Clear to Auscultation Heart: Regular Rate Abdomen: Normal Bowel Sounds, Soft, No Tenderness Extremities: No Edema Neuro: Other (Strength lower extremities 4/5 mild cognitive impairment) Results Lab Laboratory Tests 07/19/17 16:05: Glucometer 148H 07/19/17 21:01: Glucometer 267H 07/20/17 06:46: Glucometer 151H Assessment/Plan Assessment RT Thalamic infarct with gait imbalance Mild cognitive deficit RT Upper lobe pneumonia treated UTI under treatment Anxiety on meds Insomnia -on meds HTN controlled with meds DM controlled Plan Continue PT/OT/ST Team Conference next week F/U with hospitalist service Monitor accucheks and adjust meds as needed. RADHA FONG MD Jul 20, 2017 08:08
--- NOTE | 2017-07-20 08:15 | Individualized Plan of Care ---
Individualized Plan of Care Rehab Nursing IPOC Order Admission Date Jul 19, 2017 at 12:00 Current Orders Orders Pt Evaluate/Treat Request (07/19/17 11:51) Request Ot Evaluate & Treat (07/19/17 11:51) Request Speech/Language Servic (07/19/17 11:51) Code/Resuscitation (07/19/17 12:34) Initiate Admission Nursing Pro .admission (07/19/17 12:34) Cho 45g/M 1snack (12-1500 Lucian) (07/19/17 Lunch) Mat Protocol-Rt Rfs (07/19/17 12:34) Occupational Therapy Order (07/19/17 12:34) Physical Therapy Oder (07/19/17 12:34) Rt Request For Service (07/19/17 12:34) Request Speech/Language Servic (07/19/17 12:34) Request For Dysphagia Services (07/19/17 12:34) Svn Sm Volume Nebulizer Rt-Rfs (07/19/17 12:34) Speech Therapy Orders (07/19/17 12:34) Consult Physician (07/19/17 12:36) Patient Visit (07/19/17 ) Pt Eval Moderate Complexity (07/19/17 ) Functional Activities, Ea 15 (07/19/17 ) Patient Visit (07/19/17 ) Speech Sound Lang Comp (07/19/17 ) Alprazolam Tablet (Xanax Tablet) (07/19/17 14:19) Citalopram Tablet (Celexa Tablet) (07/19/17 14:19) Pantoprazole Tablet (Protonix Tablet) (07/19/17 14:19) Acetaminophen Tablet (Tylenol Tablet) (07/19/17 14:19) Insulin Aspart (Novolog) (Novolog (Charg (07/19/17 14:19) Magnesium Hydroxide Oral Susp (Mom Oral (07/19/17 14:19) Albuterol/Ipra Inhalation Soln (Duoneb I (07/19/17 14:19) Albuterol Pre-Mix Nebs (Rt) (Proventil P (07/19/17 14:19) Allopurinol Tablet (Zyloprim Tablet) (07/19/17 14:19) Amitriptyline Tablet (Elavil Tablet) (07/19/17 14:19) Carbamazepine Tablet (Tegretol Tablet) (07/19/17 14:19) Metformin Tablet (Glucophage Tablet) (07/19/17 14:19) Spironolactone Tablet (Aldactone Tablet) (07/19/17 14:19) Valsartan Tablet (Diovan Tablet) (07/19/17 14:19) Amlodipine Tablet (Norvasc Tablet) (07/19/17 14:19) Famotidine Tablet (Pepcid Tablet) (07/19/17 21:00) Aspirin Tablet (Aspirin Tablet) (07/19/17 14:19) Enoxaparin Injection (Lovenox Injection) (07/19/17 14:20) Levofloxacin Tablet (Levaquin Tablet) (07/19/17 21:00) Enoxaparin Injection (Lovenox Injection) (07/19/17 20:00) Metformin Tablet (Glucophage Tablet) (07/20/17 08:00) Acetaminophen Tablet/Caplet (Tylenol T (07/19/17 14:15) Albuterol/Ipra Inhalation Soln (Duoneb I (07/19/17 18:00) Svn Sm Volume Nebulizer Rt-Rfs (07/19/17 14:10) Albuterol Pre-Mix Nebs (Rt) (Proventil P (07/19/17 14:15) Amlodipine Tablet (Norvasc Tablet) (07/20/17 09:00) Aspirin Enteric Coated Tablet (Ecotrin T (07/20/17 09:00) Enoxaparin Injection (Lovenox Injection) (07/19/17 14:15) Famotidine Tablet (Pepcid Tablet) (07/19/17 21:00) Insulin Aspart (Novolog) (Novolog (Charg (07/19/17 16:00) Levofloxacin Tablet (Levaquin Tablet) (07/20/17 11:00) Valsartan Tablet (Diovan Tablet) (07/20/17 09:00) Allopurinol Tablet (Zyloprim Tablet) (07/20/17 09:00) Alprazolam Tablet (Xanax Tablet) (07/19/17 14:15) Amitriptyline Tablet (Elavil Tablet) (07/19/17 21:00) Carbamazepine Tablet (Tegretol Tablet) (07/19/17 21:00) Citalopram Tablet (Celexa Tablet) (07/20/17 09:00) Atorvastatin Tablet (Lipitor) (07/19/17 21:00) Metformin Tablet (Glucophage Tablet) (07/20/17 07:00) Pantoprazole Tablet (Protonix Tablet) (07/20/17 07:00) Spironolactone Tablet (Aldactone Tablet) (07/20/17 09:00) Trazodone Tablet (Desyrel Tablet) (07/19/17 21:00) Ambulate TID (07/19/17 14:25) Sequential Compression Device 08,20 (07/19/17 14:25) Dvt/Vte Risk - Notifiy Physici (07/19/17 14:25) Allopurinol Tablet (Zyloprim Tablet) (07/20/17 09:00) Accucheck Achs ACHS (07/19/17 14:25) Admission-Acute Rehab Unit (07/19/17 14:27) Moulder Operator-Inpt Rehab (07/19/17 14:27) Albuterol/Ipra Inhalation Soln (Duoneb I (07/19/17 15:00) Enoxaparin Injection (Lovenox Injection) (07/19/17 20:00) Levofloxacin Tablet (Levaquin Tablet) (07/19/17 21:00) Patient Visit (07/19/17 ) Gait Training, Ea 15 Min (07/19/17 ) Exercise Therap, Ea 15 Min (07/19/17 ) Insulin Aspart (Novolog) (Novolog (Charg (07/19/17 16:00) Automatic Tray (07/19/17 19:42) Other Nursing Orders: Monitor for any constipation and urinary retention Intensity of Therapy to be met Patient to be seen: Min.3h per day/5 of 7d PT IPOC Problem List: Activity Tolerance, Functional Strength, Safety, Balance, Gait, Transfer, Bed Mobility Treatment Plan: Continue Plan of Care Bed Mobility, Education, Functional Activity Demario, Functional Strength, Group Therapy, Gait, Safety, Therapeutic Exercise, Transfers Treatment Duration: Aug 04, 2017 Frequency: At least 5 to 7 days/Wk (IRF) Estimated Hrs Per Day: 1.5 hours per day OT IPOC Problems: Decreased Activ Tolerance, Decreased UE Strength, Dependent Transfers , Impaired Bed Mobility, Impaired Cognition, Impaired Funct Balance, Impaired I ADL's, Impaired Self-Care Skills, Restricted Funct UE ROM OT Treatment, Training and Edu: Yes Plan of Care: ADL Retraining, Functional Mobility Treatment Duration: Aug 02, 2017 Frequency: At least 5 to 7 days/Wk (IRF) Estimated Hrs Per Day: 1.[address] IPOC Speech Therapy Treatment Plan: Continue Plan of Care Frequency: At least 5 to 7 days/Wk (IRF) Estimated Hrs Per Day: .5 hour per day Moulder Operator/Case Mgmt Moulder Operator/Case Managemen: Discharge Planning, Patient/Family Counseling Physician IPOC Medical Issues being managed closely and that require the 24 hour availability of a physician:DM HTN UTI PNeumonia Insomnia Anxiety Medical Issues: Bowel/Bladder Function, DVT Prophylaxis, Falls Precautions, Fluid/Electrolyte/Nutrition Balance, Infection Protection, Pain Management, Other (List) (as per above) Brief Synthesis of Preadmission Screen, Post-Admission Evaluation, and Therapy Evaluations: 71 yo female who lives alone and had been Independent who sustained a rt thalamic stroke with resulting Gait imbalance and confusion resulting in a decline in functional [place] Referred to IRU for stroke rehab. Being followed by Hospitalist service PMH DM with accucheks being monitored as well as other comorbidities as per above Completing a course of antibiotics for UTI Has supportive family nearby. Medical Prognosis: Good Anticipated Length of Stay: 08-02- Rehab Goals Modified Independent to supervision for adls and mobility skills Anticipated discharge destinat: Home with family and [facility] RADHA FONG MD Jul 20, 2017 08:15
--- NOTE | 2017-07-20 08:58 | Speech Therapy Daily Note ---
Speech Daily Progress Note Subjective Date Seen by Provider: Jul 20, 2017 Time Seen by Provider: 08:10 The patient was seated upright in bed upon entrance. The patient greeted the clinician appropriately and was agreeable to participation in the cognitive treatment session. Objective - Assessment of Language Related Functional Activities (SHAQ) was initiated on this date with the following results: -- Telling Time: The patient displayed 90% accuracy (independently) while telling time on an analog clock face. -- Calendar Use: The patient demonstrated 80% accuracy (independently) while reading and implementing a calendar. Frequent repetition of instructions were provided to the patient. - Orientation: The patient was oriented to month, day, date, year, and location with the use of the in-room white board (external aid). Assessment Assessment Current Status: Good Progress Treatment Plan Continue Plan of Care Communication Comprehension: 4 Expression: 4 Social Cognition Social Interaction: 5 Problem Solvin Memory: 3 Speech Short Term Goals Short Term Goals Short Term Goals 1. The patient will display 90% accuracy with structured word-finding tasks with mild clinician verbal cueing. 2. The patient will continue to demonstrate 90% accuracy with simple orientation information, independently. 3. The patient will demonstrate 90% accuracy with safety problem solving (most notably, home environment), independently. Time Frame-STG: One Week Speech Senior Living Goals Senior Living Goals 1. The patient will display improved expressive communication through functional conversation. 2. The patient will demonstrate increased cognitive skills for improved safety and function with ADLs. Time Frame: Two Weeks Comprehension: 5 Expression: 4 Social Interaction: 5 Problem Solvin Memory: 4 Speech-Plan Treatment Plan Speech Therapy Treatment Plan: Continue Plan of Care Continue skilled speech pathology to target functional communication and improved safety problem solving/impulsivity. Frequency: At least 5 to 7 days/Wk (IRF) Estimated Hrs Per Day: .5 hour per day Rehab Potential: Good Safety Risks/Education Teaching Recipient: Patient Teaching Methods: Discussion Response to Teaching: Verbalize Understanding Education Topics Provided: Plan of Care Time Speech Therapy Time In: 08:10 Speech Therapy Time Out: 08:40 Total Billed Time: 30 Billed Treatment Time LENO Berman [facility] Jul 20, 2017 08:58
[2017-07-20] MEDS ORDERED: amLODIPine 5 MG (NORVASC) TAB PO SCH (09:00)
[2017-07-20] MEDS ORDERED: ALLOPURINOL 300 MG (ZYLOPRIM) TAB PO SCH (09:00)
[2017-07-20] MEDS: carBAMazepine 200 MG (TEGretol) TAB PO SCH ×2 (09:52→20:51)
[2017-07-20] MEDS: SPIRONOLACTONE 25 MG (ALDACTONE) TAB PO SCH (09:53)
[2017-07-20] MEDS: VALSARTAN 80 MG (DIOVAN) TAB PO SCH (09:53)
[2017-07-20] MEDS: ASPIRIN E.C. 325 MG (ECOTRIN) TABLET PO SCH (09:53)
[2017-07-20] MEDS: AMITRIPTYLINE 25 MG (ELAVIL) TAB PO SCH ×2 (09:53→20:51)
[2017-07-20] MEDS: ALLOPURINOL 300 MG (ZYLOPRIM) TAB PO SCH (09:53)
--- NOTE | 2017-07-20 10:18 | Occupational Ther Daily Note ---
OT Current Status-Daily Note Subjective No pain reported. Appearance Pt. in bed. Agrees to shower. Mental Status/Objective Patient Orientation: Person, Place Functional Dougherty Measure 0=Not Assessed/NA 4=Minimal Assistance 1=Total Assistance 5=Supervision or Setup 2=Maximal Assistance 6=Modified Doug[place] 3=Moderate Assistance 7=Complete Dougherty Attachments: IV ADL-Treatment Functional Dougherty Measure 0=Not Assessed/NA 4=Minimal Assistance 1=Total Assistance 5=Supervision or Setup 2=Maximal Assistance 6=Modified Doug[place] 3=Moderate Assistance 7=Complete IndependenceIRFPAI Quality Coding Scale 6 Independent with activity with or without an assistive device 5 Patient requires set up or clean up by helper. Patient completes activity by themselves 4 Supervision or touching assist (CGA). [place] provide cues , steadying assist 3 The helper provides less than half the effort to complete the activity 2 The helper provides more than half the effort to complete the activity 1 Dependent. The helper does all the effort to complete an activity 7 Patient refused to complete or attempt activity 9 The patient did not perform the activity before the current illness or injury 88 Not attempted due to Medical conditions or safety concerns Grooming (FIM): 5 (Pt. is able to brush hair with set up.) Bathing (FIM): 5 (Pt. is able to bathe self with SBA/set up in shower.) Shower/Bathe Self (QC): 4 Upper Body (FIM): 5 (Pt. is able to don bra and shirt with SBA.) Upper Body Dressing (QC): 4 Lower Body Dressing (FIM): 5 (Pt. is able to don underwear, pants, slip on shoes with SBA.) Lower Body Dressing (QC): 4 On/Off Footwear (QC): 4 Toileting (FIM): 5 Toileting Hygiene (QC): 5 Transfers (B, C, W/C) (FIM): 5 Toilet/Commode Transfer (FIM): 5 Toilet Transfer (QC): 4 Shower Transfer(FIM): 5 Other Treatment Pt. is able to complete most tasks with SBA. However, does require cues for safety, and cues for sequencing occassionally, as pt. seems to "forget" what she is doing while she is doing it. Demonstrates good balance but does often forget use of her walker. Spoke with PT and they will do a balance test today to see if pt. does in fact need walker. Pt. ambulated to therapy gym after ADLs today and completed 10 minutes on armbike at mod resistance to increase overall strength. Reported that she had to "go to the bathroom." Unable to push self back in chair due to sequencing issue. Education OT Patient Education: Exercise program, Modified ADL techniques, Progress toward Goal/Update tx plan, Purpose of tx/functional activities, Reviewed precautions, Rehab process, Transfer techniques Teaching Recipient: Patient Teaching Methods: Demonstration, Discussion Response to Teaching: Verbalize Understanding, Return Demonstration OT Short Term Goals Short Term Goals Transfers (B,C,W/C) (FIM): 4 1=Demonstrate adherence to instructed precautions during ADL tasks. 2=Patient will verbalize/demonstrate understanding of assistive devices/ modifications for ADL. 3=Patient will improve strength/tolerance for activity to enable patient to perform ADL's. OT Optical Worker Goals Optical Worker Goals Time Frame: Aug 02, 2017 Eating (FIM): 6 Eating (QC): 6 Groomin Oral Hygiene (QC): 6 Bathing(FIM): 5 Shower/Bathe Self (QC): 5 Upper Body Dressing(FIM): 6 Upper Body Dressing (QC): 5 Lower Body Dressing(FIM): 6 Lower Body Dressing (QC): 5 On/Off Footwear (QC): 5 Toileting(FIM): 6 Toileting Hygiene (QC): 5 Transfers (B,C,W/C) (FIM): 6 Toilet/Commode Transfer(FIM): 6 Toilet/Commode Transfer (QC): 5 Shower Transfer(FIM): 5 Comprehension(FIM): 5 Expression (FIM): 4 Social Interaction(FIM): 5 Problem Solving(FIM): 4 Memory(FIM): 4 1=Demonstrate adherence to instructed precautions during ADL tasks. 2=Patient will verbalize/demonstrate understanding of assistive devices/ modifications for ADL. 3=Patient will improve strength/tolerance for activity to enable patient to perform ADL's. OT Education/Plan Problem List/Assessment Assessment: Decreased Activ Tolerance, Decreased UE Strength, Impaired Bed Mobility, Impaired Funct Balance, Impaired I ADL's, Impaired Self-Care Skills Discharge Recommendations Plan/Recommendations: Continue POC Therapy D/C Recommendations: Home w/ Family Support, Occupational Therapy Home Care Treatment Plan/Plan of Care Treatment,Training & Education: Yes Patient would benefit from OT for education, treatment and training to promote independence in ADL's, mobility, safety and/or upper extremity function for ADL' s. Plan of Care: ADL Retraining, Functional Mobility Treatment Duration: Aug 02, 2017 Frequency: At least 5 of 7 days/Wk (IRF) Estimated Hrs Per Day: 1.5 hours per day Agreement: Yes Rehab Potential: Good Time/GCodes Start Time: 08:45 Stop Time: 10:00 Total Time Billed (hr/min): 75 Billed Treatment Time 1, ADL x 60minutes, EX x 15minutes GERARDO BLANKENSHIP OT Jul 20, 2017 10:18
[2017-07-20] MEDS ORDERED: LEVOFLOXACIN 750 MG TAB (LEVAQUIN) PO SCH (11:00)
--- NOTE | 2017-07-20 11:04 | Physical Therapy Daily Note ---
PT Daily Note-Current Subjective Pt was sitting in chair prior to tx and agreeable to PT. Pt had no reports of pain. Pt was seated in chair with nurse call, tray, phone, all needs in reach post tx. Pain Numeric Pain Scale: 0-No Pain Location: No Pain Reported Mental Status Patient Orientation: Normal For Age Transfers Functional [place] Measure 0=Not Assessed/NA 4=Minimal Assistance 1=Total Assistance 5=Supervision or Setup 2=Maximal Assistance 6=Modified [place] 3=Moderate Assistance 7=Complete IndependenceIRFPAI Quality Coding Scale 6 Independent with activity with or without an assistive device 5 Patient requires set up or clean up by helper. Patient completes activity by themselves 4 Supervision or touching assist (CGA). [place] provide cues , steadying assist 3 The helper provides less than half the effort to complete the activity 2 The helper provides more than half the effort to complete the activity 1 Dependent. The helper does all the effort to complete an activity 7 Patient refused to complete or attempt activity 9 The patient did not perform the activity before the current illness or injury 88 Not attempted due to Medical conditions or safety concerns Transfers (B, C, W/C) (FIM): 5 Sit to/from Stand: 5 Pt completes sit to stand transfers with supervision for safety. Gait Training Does the Patient Walk?: Yes Gait (FIM): 5 Distance (FIM): 3=150 ft Distance: 200' Gait Level of Assist: 5 Gait Persons Needed: 1 Gait Assistive Device: FWW Pt ambulates with FWW and supervision for safety. Exercises Standing: Dynamic Reaching Ex Standing Reps: 15 (25 min) Treatments Pt completed dynamic reaching and balance activities, collecting cones, reaching for cones and placing on ground, turning, and playing catch with ball to increase balance. Pt has tendency to abandon walker with tasks and is verbally cued for safety. Assessment Current Status: Good Progress Pt scored 31/56 on Andre Balance Test, which indicates she has balance impairments and should continue to use FWW for increased stability and safety with mobility. Pt had about 3 LOB and swayed, required assist with PT and gait belt to recover. PT Short Term Goals Short Term Goals Time Frame: Jul 26, 2017 Transfers (B,C,W/C) (FIM): 4 Gait (FIM): 4 PT Longterm Goals Sales Recruiter Goals PT Sales Recruiter Goals Time Frame: Aug 04, 2017 Transfers (B,C,W/C) (FIM): 7 Sit to Lying (QC): 6 Lying-Sitting on Side/Bed(QC): 6 Sit to Stand (QC): 6 Rollin Roll Left to Right (QC): 6 Chair/Hqp-rr-Ikcgg Xfer(QC): 6 Car Transfer (QC): 5 Does the Patient Walk: Yes Gait (FIM): 6 Gait distance (FIM): 3=150 ft Walk 10 feet (QC): 6 Walk 10ft-Uneven Surface(QC): 6 Walk 50ft with 2 Turns (QC): 6 Walk 150 ft (QC): 6 Gait Assistive Device: FWW Does the Pt use WC or Scooter?: No Stairs (FIM): 5 # of Steps: 8 1 Step (curb) (QC): 6 4 Steps (QC): 5 12 Steps (QC): 88 Picking up an Object (QC): 5 PT Plan Problem List Problem List: Activity Tolerance, Functional Strength, Safety, Balance, Gait, Transfer, Bed Mobility, ROM Treatment/Plan Treatment Plan: Continue Plan of Care Treatment Plan: Bed Mobility, Education, Functional Activity Demario, Functional Strength, Group Therapy, Gait, Safety, Therapeutic Exercise, Transfers Treatment Duration: Aug 04, 2017 Frequency: At least 5 of 7 days/Wk (IRF) Estimated Hrs Per Day: 1.5 hours per day Patient and/or Family Agrees t: Yes Safety Risks/Education Patient Education: Gait Training, Transfer Techniques, Reviewed Precautions, Correct Positioning, Safety Issues Teaching Recipient: Patient Teaching Methods: Demonstration, Discussion Response to Teaching: Verbalize Understanding, Reinforcement Needed Time/GCodes Time In: 1000 Time Out: 1100 Total Billed Treatment Time: 60 Total Billed Treatment 1 visit NM 50' GT 10 MARJORIE BROWN PT Jul 20, 2017 11:04
[2017-07-20] MEDS: ACETAMINOPHEN 325 MG TABLET/CAPLET (TYLENOL) PO PRN ×2 (13:23→19:55)
--- NOTE | 2017-07-20 13:55 | Physical Therapy Daily Note ---
PT Daily Note-Current Subjective Pt was sitting in chair with alarm on prior to tx and agreeable to PT. Pt reports headache and receives medicine from nursing. Pt is laying in bed with bed alarm on, nurse call, tray, phone, all needs in reach post tx. Pain Numeric Pain Scale: 0-No Pain Location: No Pain Reported Mental Status Patient Orientation: Person, Place, Situation Transfers Functional [place] Measure 0=Not Assessed/NA 4=Minimal Assistance 1=Total Assistance 5=Supervision or Setup 2=Maximal Assistance 6=Modified [place] 3=Moderate Assistance 7=Complete IndependenceIRFPAI Quality Coding Scale 6 Independent with activity with or without an assistive device 5 Patient requires set up or clean up by helper. Patient completes activity by themselves 4 Supervision or touching assist (CGA). [place] provide cues , steadying assist 3 The helper provides less than half the effort to complete the activity 2 The helper provides more than half the effort to complete the activity 1 Dependent. The helper does all the effort to complete an activity 7 Patient refused to complete or attempt activity 9 The patient did not perform the activity before the current illness or injury 88 Not attempted due to Medical conditions or safety concerns Transfers (B, C, W/C) (FIM): 5 Sit to/from Stand: 5 Pt completes sit to stand with supervision for safety. Gait Training Does the Patient Walk?: Yes Gait (FIM): 4 Distance (FIM): 3=150 ft Distance: 150'x3 Gait Level of Assist: 4 Gait Persons Needed: 1 Gait Assistive Device: FWW Pt ambulates with FWW and CGA for safety. Pt has tendency to leave walker behind with turns and when preparing to sit in chair. Pt is verbally cued for hand and walker placement and for safety. Treatments Pt completes 20' obstacle course (foam mat, navigating cones, completing step) 4 times with FWW and CGA for safety. Pt requires verbal cueing for walker placement and turning. Pt completes obstacle course to increase balance. Pt also completes gait training to increase functional mobility. Assessment Current Status: Fair Progress Pt has decreased safety awareness and requires frequent verbal cues for safety. PT Short Term Goals Short Term Goals Time Frame: Jul 26, 2017 Transfers (B,C,W/C) (FIM): 4 Gait (FIM): 4 PT Retirement Goals Retirement Goals PT Vp Security Goals Time Frame: Aug 04, 2017 Transfers (B,C,W/C) (FIM): 7 Sit to Lying (QC): 6 Lying-Sitting on Side/Bed(QC): 6 Sit to Stand (QC): 6 Rollin Roll Left to Right (QC): 6 Chair/Ffj-gw-[place] Xfer(QC): 6 Car Transfer (QC): 5 Does the Patient Walk: Yes Gait (FIM): 6 Gait distance (FIM): 3=150 ft Walk 10 feet (QC): 6 Walk 10ft-Uneven Surface(QC): 6 Walk 50ft with 2 Turns (QC): 6 Walk 150 ft (QC): 6 Gait Assistive Device: FWW Does the Pt use WC or Scooter?: No Stairs (FIM): 5 # of Steps: 8 1 Step (curb) (QC): 6 4 Steps (QC): 5 12 Steps (QC): 88 Picking up an Object (QC): 5 PT Plan Problem List Problem List: Activity Tolerance, Functional Strength, Safety, Balance, Gait, Transfer, Bed Mobility Treatment/Plan Treatment Plan: Continue Plan of Care Treatment Plan: Bed Mobility, Education, Functional Activity Demario, Functional Strength, Group Therapy, Gait, Safety, Therapeutic Exercise, Transfers Treatment Duration: Aug 04, 2017 Frequency: At least 5 of 7 days/Wk (IRF) Estimated Hrs Per Day: 1.5 hours per day Patient and/or Family Agrees t: Yes Safety Risks/Education Patient Education: Gait Training, Transfer Techniques, Correct Positioning, Safety Issues Teaching Recipient: Patient Teaching Methods: Demonstration, Discussion Response to Teaching: Verbalize Understanding, Reinforcement Needed Time/GCodes Time In: 1315 Time Out: 1345 Total Billed Treatment Time: 30 Total Billed Treatment 1 visit 15 GT 15 NM MARTÍN HAGEN PT Jul 20, 2017 13:55
[2017-07-20 17:58] VITALS: BP 198/82
[2017-07-20] MEDS ORDERED: amLODIPine 5 MG (NORVASC) TAB PO NR (18:15)
[2017-07-20] MEDS: ENOXAPARIN 40 MG/0.4 ML (LOVENOX) SYR SC SCH (19:45)
[2017-07-20 20:50] VITALS: BP 142/74
[2017-07-20] MEDS: ATORVASTATIN 40 MG (LIPITOR) TABLET PO SCH (20:51)
[2017-07-20] MEDS: LEVOFLOXACIN 750 MG TAB (LEVAQUIN) PO SCH (20:51)
[2017-07-20] MEDS: FAMOTIDINE 20 MG (PEPCID) TABLET PO SCH (20:52)
[2017-07-21] MEDS: RT-ALBUTEROL/IPRATROPIUM 3 ML (DUONEB) VIAL INH SCH ×4 (03:26→19:28)
[2017-07-21 05:00] VITALS: BP 150/84
[2017-07-21] MEDS: inSUlin ASPART (NovoLOG) 1 UNIT/0.01 ML (CHARGE PER UNIT) SC SCH ×4 (05:15→20:29)
[2017-07-21] MEDS: PANTOPRAZOLE 40 MG (PROTONIX) TAB PO SCH (06:15)
[2017-07-21] MEDS: metFORMIN 500 MG (GLUCOPHAGE) TAB PO SCH (06:15)
[2017-07-21] MEDS ORDERED: amLODIPine 5 MG (NORVASC) TAB PO SCH (09:00)
[2017-07-21] MEDS: VALSARTAN 80 MG (DIOVAN) TAB PO SCH (09:03)
[2017-07-21] MEDS: amLODIPine 10 MG (NORVASC) TAB PO SCH (09:03)
[2017-07-21] MEDS: carBAMazepine 200 MG (TEGretol) TAB PO SCH ×2 (09:04→20:06)
[2017-07-21] MEDS: AMITRIPTYLINE 25 MG (ELAVIL) TAB PO SCH ×2 (09:04→20:06)
[2017-07-21] MEDS: ASPIRIN E.C. 325 MG (ECOTRIN) TABLET PO SCH (09:04)
[2017-07-21] MEDS: ALLOPURINOL 300 MG (ZYLOPRIM) TAB PO SCH (09:04)
[2017-07-21] MEDS: SPIRONOLACTONE 25 MG (ALDACTONE) TAB PO SCH (09:04)
--- NOTE | 2017-07-21 09:07 | Speech Therapy Daily Note ---
Speech Daily Progress Note Subjective Date Seen by Provider: Jul 21, 2017 Time Seen by Provider: 08:20 The patient was seated upright in her bed upon entrance. The patient reported fatigue, however, was agreeable to participation in the cognitive treatment session. While the patient displays reduced confusion, she intermittently struggles with word-finding throughout informal conversation. Objective - SHAQ tasks were continued from the previous date: -- Counting Money: The patient displayed 100% accuracy with counting money, including counting change back to the clinician, addition of bills and coins, and bill amounts. -- Daily Math: The patient demonstrated 50% accuracy with daily math concepts, including bill dates, time equations, and recipe tripling. Orientation: The patient remains 100% oriented to month, day of week, date, and month with the use of an external aid. Assessment Assessment Current Status: Good Progress Treatment Plan Continue Plan of Care Communication Comprehension: 4 Expression: 4 Social Cognition Social Interaction: 5 Problem Solvin Memory: 3 Speech Short Term Goals Short Term Goals Short Term Goals 1. The patient will display 90% accuracy with structured word-finding tasks with mild clinician verbal cueing. 2. The patient will continue to demonstrate 90% accuracy with simple orientation information, independently. 3. The patient will demonstrate 90% accuracy with safety problem solving (most notably, home environment), independently. Time Frame-STG: One Week Speech Faculty Instructor Goals Faculty Instructor Goals 1. The patient will display improved expressive communication through functional conversation. 2. The patient will demonstrate increased cognitive skills for improved safety and function with ADLs. Time Frame: Two Weeks Comprehension: 5 Expression: 4 Social Interaction: 5 Problem Solvin Memory: 4 Speech-Plan Treatment Plan Speech Therapy Treatment Plan: Continue Plan of Care Continue skilled speech pathology to target functional expressive communication and problem solving. Frequency: At least 5 of 7 days/Wk (IRF) Estimated Hrs Per Day: .5 hour per day Rehab Potential: Good Safety Risks/Education Teaching Recipient: Patient Teaching Methods: Demonstration, Discussion Response to Teaching: Return Demonstration Education Topics Provided: Orientation Strategies, Change Counting Time Speech Therapy Time In: 08:20 Speech Therapy Time Out: 08:50 Total Billed Time: 30 Billed Treatment Time LENO B[facility] Jul 21, 2017 09:07
--- NOTE | 2017-07-21 10:51 | Occupational Ther Daily Note ---
OT Current Status-Daily Note Subjective Pt alert, sitting in chair. Agrees to therapy, wants to shower. Mental Status/Objective Patient Orientation: Person, Place, Time, Situation Functional [place] Measure 0=Not Assessed/NA 4=Minimal Assistance 1=Total Assistance 5=Supervision or Setup 2=Maximal Assistance 6=Modified [place] 3=Moderate Assistance 7=Complete [place] Attachments: IV ADL-Treatment Functional [place] Measure 0=Not Assessed/NA 4=Minimal Assistance 1=Total Assistance 5=Supervision or Setup 2=Maximal Assistance 6=Modified [place] 3=Moderate Assistance 7=Complete IndependenceIRFPAI Quality Coding Scale 6 Independent with activity with or without an assistive device 5 Patient requires set up or clean up by helper. Patient completes activity by themselves 4 Supervision or touching assist (CGA). [place] provide cues , steadying assist 3 The helper provides less than half the effort to complete the activity 2 The helper provides more than half the effort to complete the activity 1 Dependent. The helper does all the effort to complete an activity 7 Patient refused to complete or attempt activity 9 The patient did not perform the activity before the current illness or injury 88 Not attempted due to Medical conditions or safety concerns Grooming (FIM): 5 (Pt able to stand at sink to brush teeth and comb hair with supervision. Pt washes face while seated in shower. ) Bathing (FIM): 5 (Pt able to wash and dry all areas of body while seated in shower with supervision. Using shower bench, grab bars, and handheld shower.) Bathing Location: L Arm, R Arm, L Upper Leg, R Upper Leg, L Lower Leg ( including foot), R Lower Leg (including foot), Chest, Abdomen, Buttocks, Perineal Area Upper Body (FIM): 5 (Pt retrieves clothing and transports to bathroom using FWW with SBA. Pt dresses while seated with supervision.) Lower Body Dressing (FIM): 5 (Pt retrieves clothing and transports to bathroom using FWW with SBA. Pt dresses while seated, requiring SBA when standing to pull up pants.) Toileting (FIM): 5 (Pt able to manipulate clothing and compelte hygiene with supervision using grab bars.) Transfers (B, C, W/C) (FIM): 5 (Pt sit to stand with SBA using FWW. ) Toilet/Commode Transfer (FIM): 5 (Pt transfers to toilet with SBA using FWW and grab bars. ) Shower Transfer(FIM): 5 (Pt transfers into shower with SBA using FWW, grab bars , and shower bench.) Pt able to complete ADL's with verbal cues about what to do next. Pt takes a minute to process next moves. Other Treatment Pt ambulated to therapy gym with SBA using FWW. PT completes activity with pegs and pegboard to work on sequencing and FM skills. Pt able to sequence and complete 2 step peg pattern with ease. Pt has trouble following 3 step peg pattern, requiring verbal cues and extended time to think through and process information. After therapy, pt in therapy gym left in care of PT. All needs met. OT Short Term Goals Short Term Goals Transfers (B,C,W/C) (FIM): 4 1=Demonstrate adherence to instructed precautions during ADL tasks. 2=Patient will verbalize/demonstrate understanding of assistive devices/ modifications for ADL. 3=Patient will improve strength/tolerance for activity to enable patient to perform ADL's. OT Preservative Filler Machine Operator Goals Preservative Filler Machine Operator Goals Time Frame: Aug 02, 2017 Eating (FIM): 6 Eating (QC): 6 Groomin Oral Hygiene (QC): 6 Bathing(FIM): 5 Shower/Bathe Self (QC): 5 Upper Body Dressing(FIM): 6 Upper Body Dressing (QC): 5 Lower Body Dressing(FIM): 6 Lower Body Dressing (QC): 5 On/Off Footwear (QC): 5 Toileting(FIM): 6 Toileting Hygiene (QC): 5 Transfers (B,C,W/C) (FIM): 6 Toilet/Commode Transfer(FIM): 6 Toilet/Commode Transfer (QC): 5 Shower Transfer(FIM): 5 Comprehension(FIM): 5 Expression (FIM): 4 Social Interaction(FIM): 5 Problem Solving(FIM): 4 Memory(FIM): 4 1=Demonstrate adherence to instructed precautions during ADL tasks. 2=Patient will verbalize/demonstrate understanding of assistive devices/ modifications for ADL. 3=Patient will improve strength/tolerance for activity to enable patient to perform ADL's. OT Education/Plan Discharge Recommendations Plan/Recommendations: Continue POC Treatment Plan/Plan of Care Patient would benefit from OT for education, treatment and training to promote independence in ADL's, mobility, safety and/or upper extremity function for ADL' s. Plan of Care: ADL Retraining, Functional Mobility Treatment Duration: Aug 02, 2017 Frequency: At least 5 of 7 days/Wk (IRF) Estimated Hrs Per Day: 1.5 hours per day Agreement: Yes Rehab Potential: Good Time/GCodes Start Time: 09:00 Stop Time: 10:45 Total Time Billed (hr/min): 75 Billed Treatment Time 1 visit, ADL 4 (60 minutes) FA 1 (15 minutes) MARTÍN MILLS Jul 21, 2017 10:51
--- NOTE | 2017-07-21 11:33 | Physical Therapy Daily Note ---
PT Daily Note-Current Subjective Pt is sitting in rehab gym (just finished with OT) prior to tx and agreeable to PT. Pt reports no pain. Pt was sitting in chair with nurse call, tray, phone, all needs in reach, chair alarm on, post tx. Pain Numeric Pain Scale: 0-No Pain Location: No Pain Reported Mental Status Patient Orientation: Person, Place, Situation Transfers Functional [place] Measure 0=Not Assessed/NA 4=Minimal Assistance 1=Total Assistance 5=Supervision or Setup 2=Maximal Assistance 6=Modified [place] 3=Moderate Assistance 7=Complete IndependenceIRFPAI Quality Coding Scale 6 Independent with activity with or without an assistive device 5 Patient requires set up or clean up by helper. Patient completes activity by themselves 4 Supervision or touching assist (CGA). [place] provide cues , steadying assist 3 The helper provides less than half the effort to complete the activity 2 The helper provides more than half the effort to complete the activity 1 Dependent. The helper does all the effort to complete an activity 7 Patient refused to complete or attempt activity 9 The patient did not perform the activity before the current illness or injury 88 Not attempted due to Medical conditions or safety concerns Transfers (B, C, W/C) (FIM): 4 Sit to/from Stand: 4 Pt is CGA with sit to stand transfers. Pt requires verbal cues for hand placement. Gait Training Does the Patient Walk?: Yes Gait (FIM): 2 Distance (FIM): 9=229-09 ft Distance: 100' Gait Level of Assist: 4 Gait Persons Needed: 1 Gait Assistive Device: FWW Pt ambulates with FWW and CGA for safety. Pt has decreased safety awareness and tends to abandon walker when preparing to sit. Treatments Tx includes stepping over objects, reaching/bending for objects on ground, navigating cones, turning, tandem walking, side stepping, and unilateral stance activities. Pt completes balance activities to increase balance with functional mobility and increase independence. Assessment Current Status: Good Progress Pt balance is improving. Pt has decreased safety awareness and requires verbal cues for safety. PT Short Term Goals Short Term Goals Time Frame: Jul 26, 2017 Transfers (B,C,W/C) (FIM): 4 Gait (FIM): 4 PT Skilled Nursing Goals Skilled Nursing Goals PT Skilled Nursing Goals Time Frame: Aug 04, 2017 Transfers (B,C,W/C) (FIM): 7 Sit to Lying (QC): 6 Lying-Sitting on Side/Bed(QC): 6 Sit to Stand (QC): 6 Rollin Roll Left to Right (QC): 6 Chair/Mdv-lf-Yxvcp Xfer(QC): 6 Car Transfer (QC): 5 Does the Patient Walk: Yes Gait (FIM): 6 Gait distance (FIM): 3=150 ft Walk 10 feet (QC): 6 Walk 10ft-Uneven Surface(QC): 6 Walk 50ft with 2 Turns (QC): 6 Walk 150 ft (QC): 6 Gait Assistive Device: FWW Does the Pt use WC or Scooter?: No Stairs (FIM): 5 # of Steps: 8 1 Step (curb) (QC): 6 4 Steps (QC): 5 12 Steps (QC): 88 Picking up an Object (QC): 5 PT Plan Problem List Problem List: Activity Tolerance, Functional Strength, Safety, Balance, Gait, Transfer, Bed Mobility Treatment/Plan Treatment Plan: Continue Plan of Care Treatment Plan: Bed Mobility, Education, Functional Activity Demario, Functional Strength, Group Therapy, Gait, Safety, Therapeutic Exercise, Transfers Treatment Duration: Aug 04, 2017 Frequency: At least 5 of 7 days/Wk (IRF) Estimated Hrs Per Day: 1.5 hours per day Patient and/or Family Agrees t: Yes Safety Risks/Education Patient Education: Gait Training, Transfer Techniques, Reviewed Precautions, Correct Positioning Teaching Recipient: Patient Teaching Methods: Demonstration, Discussion Response to Teaching: Verbalize Understanding, Reinforcement Needed Time/GCodes Time In: 1045 Time Out: 1130 Total Billed Treatment Time: 45 Total Billed Treatment 1 visit GT 10 NM 35 MARJORIE BROWN PT Jul 21, 2017 11:33
[2017-07-21] MEDS: ACETAMINOPHEN 325 MG TABLET/CAPLET (TYLENOL) PO PRN (11:47)
[2017-07-21 11:49] VITALS: BP 179/96
--- NOTE | 2017-07-21 14:53 | Physical Therapy Daily Note ---
PT Daily Note-Current Subjective Pt was sitting in chair, bed alarm on, prior to tx. Pt reports no pain. Pt was lying in bed with nurse call, phone, tray, all needs in reach post tx. Pain Numeric Pain Scale: 0-No Pain Location: No Pain Reported Mental Status Patient Orientation: Person, Place, Situation Transfers Functional [place] Measure 0=Not Assessed/NA 4=Minimal Assistance 1=Total Assistance 5=Supervision or Setup 2=Maximal Assistance 6=Modified [place] 3=Moderate Assistance 7=Complete IndependenceIRFPAI Quality Coding Scale 6 Independent with activity with or without an assistive device 5 Patient requires set up or clean up by helper. Patient completes activity by themselves 4 Supervision or touching assist (CGA). [place] provide cues , steadying assist 3 The helper provides less than half the effort to complete the activity 2 The helper provides more than half the effort to complete the activity 1 Dependent. The helper does all the effort to complete an activity 7 Patient refused to complete or attempt activity 9 The patient did not perform the activity before the current illness or injury 88 Not attempted due to Medical conditions or safety concerns Transfers (B, C, W/C) (FIM): 4 Sit to/from Stand: 4 Pt completes sit to stand transfer with CGA for safety. Pt requires verbal cues for hand placement. Gait Training Does the Patient Walk?: Yes Gait (FIM): 4 Distance (FIM): 3=150 ft Distance: 200', 100'x3 Gait Level of Assist: 4 Gait Persons Needed: 1 Gait Assistive Device: FWW Pt ambulates with FWW and CGA for safety. Pt requires verbal cues for walker placement and safety. Treatments Pt completes gait training to increase functional mobility and independence. Pt completes balance activities (reaching, turning, bending/picking up objects from floor, navigating obstacles) to increase balance and safety with ambulation. Assessment Current Status: Good Progress Pt ambulation is improving. PT Short Term Goals Short Term Goals Time Frame: Jul 26, 2017 Transfers (B,C,W/C) (FIM): 4 Gait (FIM): 4 PT Dry House Operator Goals Senior Care Goals PT Senior Care Goals Time Frame: Aug 04, 2017 Transfers (B,C,W/C) (FIM): 7 Sit to Lying (QC): 6 Lying-Sitting on Side/Bed(QC): 6 Sit to Stand (QC): 6 Rollin Roll Left to Right (QC): 6 Chair/Dln-pe-Pwyjw Xfer(QC): 6 Car Transfer (QC): 5 Does the Patient Walk: Yes Gait (FIM): 6 Gait distance (FIM): 3=150 ft Walk 10 feet (QC): 6 Walk 10ft-Uneven Surface(QC): 6 Walk 50ft with 2 Turns (QC): 6 Walk 150 ft (QC): 6 Gait Assistive Device: FWW Does the Pt use WC or Scooter?: No Stairs (FIM): 5 # of Steps: 8 1 Step (curb) (QC): 6 4 Steps (QC): 5 12 Steps (QC): 88 Picking up an Object (QC): 5 PT Plan Problem List Problem List: Activity Tolerance, Functional Strength, Safety, Balance, Gait, Transfer, Bed Mobility, ROM Treatment/Plan Treatment Plan: Continue Plan of Care Treatment Plan: Bed Mobility, Education, Functional Activity Demario, Functional Strength, Group Therapy, Gait, Safety, Therapeutic Exercise, Transfers Treatment Duration: Aug 04, 2017 Frequency: At least 5 of 7 days/Wk (IRF) Estimated Hrs Per Day: 1.5 hours per day Patient and/or Family Agrees t: Yes Safety Risks/Education Patient Education: Gait Training, Transfer Techniques, Reviewed Precautions, Correct Positioning, Safety Issues Teaching Recipient: Patient Teaching Methods: Demonstration, Discussion Response to Teaching: Verbalize Understanding, Reinforcement Needed Time/GCodes Time In: 1400 Time Out: 1430 Total Billed Treatment Time: 30 Total Billed Treatment 1 visit GT 15 NM 15 MARJORIE BROWN PT Jul 21, 2017 14:53
[2017-07-21 18:00] VITALS: BP 182/94
[2017-07-21] MEDS ORDERED: lisINopril 10 MG (PRINIVIL) TAB PO SCH (18:30)
[2017-07-21] MEDS: FAMOTIDINE 20 MG (PEPCID) TABLET PO SCH (20:06)
[2017-07-21] MEDS: LEVOFLOXACIN 750 MG TAB (LEVAQUIN) PO SCH (20:06)
[2017-07-21] MEDS: ENOXAPARIN 40 MG/0.4 ML (LOVENOX) SYR SC SCH (20:06)
[2017-07-21] MEDS: ATORVASTATIN 40 MG (LIPITOR) TABLET PO SCH (20:06)
[2017-07-21] MEDS ORDERED: hydrALAZINE (APRESOLINE) 25 MG TAB PO SCH (21:00)
[2017-07-22] MEDS: RT-ALBUTEROL/IPRATROPIUM 3 ML (DUONEB) VIAL INH SCH ×2 (03:00→19:48)
[2017-07-22 05:00] VITALS: BP 155/85
[2017-07-22] MEDS: inSUlin ASPART (NovoLOG) 1 UNIT/0.01 ML (CHARGE PER UNIT) SC SCH ×4 (05:53→21:25)
[2017-07-22] MEDS: metFORMIN 500 MG (GLUCOPHAGE) TAB PO SCH (05:54)
[2017-07-22] MEDS: PANTOPRAZOLE 40 MG (PROTONIX) TAB PO SCH (05:54)
[2017-07-22] MEDS: VALSARTAN 80 MG (DIOVAN) TAB PO SCH (08:18)
[2017-07-22] MEDS: ASPIRIN E.C. 325 MG (ECOTRIN) TABLET PO SCH (08:18)
[2017-07-22] MEDS: amLODIPine 10 MG (NORVASC) TAB PO SCH (08:19)
[2017-07-22] MEDS: SPIRONOLACTONE 25 MG (ALDACTONE) TAB PO SCH (08:19)
[2017-07-22] MEDS: carBAMazepine 200 MG (TEGretol) TAB PO SCH ×2 (08:19→20:48)
[2017-07-22] MEDS: AMITRIPTYLINE 25 MG (ELAVIL) TAB PO SCH ×2 (08:20→20:47)
[2017-07-22] MEDS: ALLOPURINOL 300 MG (ZYLOPRIM) TAB PO SCH (08:20)
--- NOTE | 2017-07-22 10:27 | Physical Therapy Daily Note ---
PT Daily Note-Current Subjective Pt. agrees to Rx. Feels she is making progress. Pain Numeric Pain Scale: 0-No Pain Mental Status Patient Orientation: Normal For Age Transfers Functional [place] Measure 0=Not Assessed/NA 4=Minimal Assistance 1=Total Assistance 5=Supervision or Setup 2=Maximal Assistance 6=Modified [place] 3=Moderate Assistance 7=Complete IndependenceIRFPAI Quality Coding Scale 6 Independent with activity with or without an assistive device 5 Patient requires set up or clean up by helper. Patient completes activity by themselves 4 Supervision or touching assist (CGA). [place] provide cues , steadying assist 3 The helper provides less than half the effort to complete the activity 2 The helper provides more than half the effort to complete the activity 1 Dependent. The helper does all the effort to complete an activity 7 Patient refused to complete or attempt activity 9 The patient did not perform the activity before the current illness or injury 88 Not attempted due to Medical conditions or safety concerns Transfers (B, C, W/C) (FIM): 5 Scootin Rollin Supine to/from Sit: 5 Sit to/from Stand: 6 cues for use of hands for safe TRFs Gait Training Does the Patient Walk?: Yes Gait (FIM): 5 Distance (FIM): 3=150 ft (x2) Gait Level of Assist: 5 Gait Persons Needed: 1 Gait Assistive Device: FWW Exercises Standing: Hip Abduction, Hamstring curls, Heel/toe raises, Marching, Mini squats, Sit to Stand Standing Reps: 12 Assessment Current Status: Good Progress PT Short Term Goals Short Term Goals Time Frame: Jul 26, 2017 Transfers (B,C,W/C) (FIM): 4 Gait (FIM): 4 PT Deputy Head Goals Deputy Head Goals PT Deputy Head Goals Time Frame: Aug 04, 2017 Transfers (B,C,W/C) (FIM): 7 Sit to Lying (QC): 6 Lying-Sitting on Side/Bed(QC): 6 Sit to Stand (QC): 6 Rollin Roll Left to Right (QC): 6 Chair/Kqq-zy-Xlmhq Xfer(QC): 6 Car Transfer (QC): 5 Does the Patient Walk: Yes Gait (FIM): 6 Gait distance (FIM): 3=150 ft Walk 10 feet (QC): 6 Walk 10ft-Uneven Surface(QC): 6 Walk 50ft with 2 Turns (QC): 6 Walk 150 ft (QC): 6 Gait Assistive Device: FWW Does the Pt use WC or Scooter?: No Stairs (FIM): 5 # of Steps: 8 1 Step (curb) (QC): 6 4 Steps (QC): 5 12 Steps (QC): 88 Picking up an Object (QC): 5 PT Plan Treatment/Plan Treatment Plan: Continue Plan of Care Treatment Plan: Bed Mobility, Education, Functional Activity Demario, Functional Strength, Group Therapy, Gait, Safety, Therapeutic Exercise, Transfers Treatment Duration: Aug 04, 2017 Frequency: At least 5 of 7 days/Wk (IRF) Estimated Hrs Per Day: 1.5 hours per day Patient and/or Family Agrees t: Yes Safety Risks/Education Patient Education: Gait Training, Transfer Techniques, Correct Positioning, Disease Process, Safety Issues Teaching Recipient: Patient Teaching Methods: Demonstration, Discussion Response to Teaching: Verbalize Understanding, Return Demonstration, Reinforcement Needed Time/GCodes Time In: 830 Time Out: 900 Total Billed Treatment Time: 30 Total Billed Treatment 1,EX10,GT20 G Codes Necessary: MELONY Dillard DESK DIRECTOR Jul 22, 2017 10:27
[2017-07-22 11:56] VITALS: BP 186/97
[2017-07-22 18:08] VITALS: BP 166/84
[2017-07-22] MEDS: ENOXAPARIN 40 MG/0.4 ML (LOVENOX) SYR SC SCH (20:47)
[2017-07-22] MEDS: FAMOTIDINE 20 MG (PEPCID) TABLET PO SCH (20:48)
[2017-07-22] MEDS: ATORVASTATIN 40 MG (LIPITOR) TABLET PO SCH (20:48)
[2017-07-22] MEDS: ACETAMINOPHEN 325 MG TABLET/CAPLET (TYLENOL) PO PRN (21:26)
[2017-07-23] MEDS: PANTOPRAZOLE 40 MG (PROTONIX) TAB PO SCH (06:04)
[2017-07-23] MEDS: inSUlin ASPART (NovoLOG) 1 UNIT/0.01 ML (CHARGE PER UNIT) SC SCH ×4 (06:04→21:14)
[2017-07-23] MEDS: metFORMIN 500 MG (GLUCOPHAGE) TAB PO SCH (06:04)
[2017-07-23 06:22] VITALS: BP 189/97
[2017-07-23] MEDS: RT-ALBUTEROL/IPRATROPIUM 3 ML (DUONEB) VIAL INH SCH ×2 (07:23→20:13)
[2017-07-23] MEDS: ASPIRIN E.C. 325 MG (ECOTRIN) TABLET PO SCH (08:34)
[2017-07-23] MEDS: ALLOPURINOL 300 MG (ZYLOPRIM) TAB PO SCH (08:34)
[2017-07-23] MEDS: amLODIPine 10 MG (NORVASC) TAB PO SCH (08:34)
[2017-07-23] MEDS: AMITRIPTYLINE 25 MG (ELAVIL) TAB PO SCH ×2 (08:34→20:02)
[2017-07-23] MEDS: SPIRONOLACTONE 25 MG (ALDACTONE) TAB PO SCH (08:34)
[2017-07-23] MEDS: VALSARTAN 80 MG (DIOVAN) TAB PO SCH (08:34)
[2017-07-23] MEDS: carBAMazepine 200 MG (TEGretol) TAB PO SCH ×2 (08:34→20:02)
[2017-07-23 18:07] VITALS: BP 147/78
[2017-07-23] MEDS: ENOXAPARIN 40 MG/0.4 ML (LOVENOX) SYR SC SCH (20:02)
[2017-07-23] MEDS: ATORVASTATIN 40 MG (LIPITOR) TABLET PO SCH (20:02)
[2017-07-23] MEDS: FAMOTIDINE 20 MG (PEPCID) TABLET PO SCH (20:02)
[2017-07-24 05:26] VITALS: BP 177/96
[2017-07-24] MEDS: inSUlin ASPART (NovoLOG) 1 UNIT/0.01 ML (CHARGE PER UNIT) SC SCH ×4 (05:27→21:46)
[2017-07-24] MEDS: metFORMIN 500 MG (GLUCOPHAGE) TAB PO SCH (06:12)
[2017-07-24] MEDS: PANTOPRAZOLE 40 MG (PROTONIX) TAB PO SCH (06:12)
[2017-07-24] MEDS: RT-ALBUTEROL/IPRATROPIUM 3 ML (DUONEB) VIAL INH SCH ×2 (06:48→19:40)
[2017-07-24] MEDS: VALSARTAN 80 MG (DIOVAN) TAB PO SCH (07:45)
[2017-07-24] MEDS: ASPIRIN E.C. 325 MG (ECOTRIN) TABLET PO SCH (07:45)
[2017-07-24] MEDS: SPIRONOLACTONE 25 MG (ALDACTONE) TAB PO SCH (07:46)
[2017-07-24] MEDS: carBAMazepine 200 MG (TEGretol) TAB PO SCH ×2 (07:47→20:44)
[2017-07-24] MEDS: amLODIPine 10 MG (NORVASC) TAB PO SCH (07:47)
[2017-07-24] MEDS: ALLOPURINOL 300 MG (ZYLOPRIM) TAB PO SCH (07:47)
[2017-07-24] MEDS: AMITRIPTYLINE 25 MG (ELAVIL) TAB PO SCH ×2 (07:49→20:44)
--- NOTE | 2017-07-24 09:18 | Speech Therapy Daily Note ---
Speech Daily Progress Note Subjective Date Seen by Provider: Jul 24, 2017 Time Seen by Provider: 08:30 The patient was seated upright in recliner upon entrance. The patient greeted the clinician appropriately and was agreeable to participation in the cognitive treatment session. Objective SHAQ was continued on this date: - Addressing an Envelope: The patient displayed 100% accuracy with addressing an envelope, including her return address. - Writing a Check and Balancing a Checkbook: The patient demonstrated 100% accuracy with writing a check and balancing her checkbook. - Reading Instructions: The patient displayed 100% accuracy with reading instructions. - Understanding Medicine Labels: The patient demonstrated 100% accuracy with reading medicine labels and using a medicine chart. Orientation: The patient was 100% oriented on this date, independently. Assessment Assessment Current Status: Excellent Progress Treatment Plan Continue Plan of Care Communication Comprehension: 5 Expression: 4 Social Cognition Social Interaction: 5 Problem Solvin Memory: 4 Speech Short Term Goals Short Term Goals Short Term Goals 1. The patient will display 90% accuracy with structured word-finding tasks with mild clinician verbal cueing. 2. The patient will continue to demonstrate 90% accuracy with simple orientation information, independently. 3. The patient will demonstrate 90% accuracy with safety problem solving (most notably, home environment), independently. Time Frame-STG: One Week Speech Assisted Goals Certified Professional Ergonomist Goals 1. The patient will display improved expressive communication through functional conversation. 2. The patient will demonstrate increased cognitive skills for improved safety and function with ADLs. Time Frame: Two Weeks Comprehension: 5 Expression: 4 Social Interaction: 5 Problem Solvin Memory: 4 Speech-Plan Treatment Plan Speech Therapy Treatment Plan: Continue Plan of Care Continue skilled speech pathology to target functional problem solving. Frequency: At least 5 of 7 days/Wk (IRF) Estimated Hrs Per Day: .5 hour per day Rehab Potential: Good Safety Risks/Education Teaching Recipient: Patient Teaching Methods: Discussion Response to Teaching: Verbalize Understanding, Return Demonstration Education Topics Provided: Functional Problem Solving Time Speech Therapy Time In: 08:30 Speech Therapy Time Out: 09:00 Total Billed Time: 30 Billed Treatment Time LENO Berman ELIZABETH Jul 24, 2017 09:18
--- NOTE | 2017-07-24 11:09 | Physical Therapy Daily Note ---
PT Daily Note-Current Subjective Pt. states she is so much better and hopes to go home . States initially that she is afraid of the stairs but after doing them feels much more confident. Pain Numeric Pain Scale: 0-No Pain Appearance gait more symmetrical, handles FWW well Mental Status Patient Orientation: Normal For Age Transfers Functional [place] Measure 0=Not Assessed/NA 4=Minimal Assistance 1=Total Assistance 5=Supervision or Setup 2=Maximal Assistance 6=Modified [place] 3=Moderate Assistance 7=Complete IndependenceIRFPAI Quality Coding Scale 6 Independent with activity with or without an assistive device 5 Patient requires set up or clean up by helper. Patient completes activity by themselves 4 Supervision or touching assist (CGA). [place] provide cues , steadying assist 3 The helper provides less than half the effort to complete the activity 2 The helper provides more than half the effort to complete the activity 1 Dependent. The helper does all the effort to complete an activity 7 Patient refused to complete or attempt activity 9 The patient did not perform the activity before the current illness or injury 88 Not attempted due to Medical conditions or safety concerns Transfers (B, C, W/C) (FIM): 6 Scootin Rollin Supine to/from Sit: 6 Sit to/from Stand: 6 Bed to/from Chair: 6 Gait Training Does the Patient Walk?: Yes Gait (FIM): 5 Distance (FIM): 3=150 ft (x2) Gait Level of Assist: 5 Gait Persons Needed: 1 Gait Assistive Device: FWW Stair Training Stair Training: Handrails/: 2 handrails Stairs (FIM): 2 #of Steps: 4 Stairs: Pattern: Step to Level of Assist: 4 Balance Picking up an Object (QC): 5 Special Test Comments reaches for pants at floor after toileting with no difficulty, no LOB Exercises Supine Ex: Bridging, Ankle pumps, Quad Set, Rolling, Glut sets, Heel Slides, Short Arc Quads, Scooting, Straight leg raise, Hip abd/add Supine Reps: 12 NuStep Minutes: 10 NuStep Workload: 2 Treatments leg presses on NUSTEP x12 Assessment Current Status: Good Progress no LOB, increased strength and functional mob and safety PT Short Term Goals Short Term Goals Time Frame: Jul 26, 2017 Transfers (B,C,W/C) (FIM): 4 Gait (FIM): 4 PT Detention Goals Finishing Supervisor Goals PT Finishing Supervisor Goals Time Frame: Aug 04, 2017 Transfers (B,C,W/C) (FIM): 7 Sit to Lying (QC): 6 Lying-Sitting on Side/Bed(QC): 6 Sit to Stand (QC): 6 Rollin Roll Left to Right (QC): 6 Chair/Rcn-gu-Uoolk Xfer(QC): 6 Car Transfer (QC): 5 Does the Patient Walk: Yes Gait (FIM): 6 Gait distance (FIM): 3=150 ft Walk 10 feet (QC): 6 Walk 10ft-Uneven Surface(QC): 6 Walk 50ft with 2 Turns (QC): 6 Walk 150 ft (QC): 6 Gait Assistive Device: FWW Does the Pt use WC or Scooter?: No Stairs (FIM): 5 # of Steps: 8 1 Step (curb) (QC): 6 4 Steps (QC): 5 12 Steps (QC): 88 Picking up an Object (QC): 5 PT Plan Treatment/Plan Treatment Plan: Continue Plan of Care Treatment Plan: Bed Mobility, Education, Functional Activity Demario, Functional Strength, Group Therapy, Gait, Safety, Therapeutic Exercise, Transfers Treatment Duration: Aug 04, 2017 Frequency: At least 5 of 7 days/Wk (IRF) Estimated Hrs Per Day: 1.5 hours per day Patient and/or Family Agrees t: Yes Safety Risks/Education Patient Education: Gait Training, Transfer Techniques, Steps, Correct Positioning, Safety Issues Teaching Recipient: Patient Teaching Methods: Demonstration Response to Teaching: Verbalize Understanding, Return Demonstration, Reinforcement Needed stair training with education Time/GCodes Time In: 1000 Time Out: 1100 Total Billed Treatment Time: 60 Total Billed Treatment 1,FA15m,EX30m,GT15m G Codes Necessary: MELONY Dillard AIR PRESS OPERATOR Jul 24, 2017 11:09
--- NOTE | 2017-07-24 13:36 | Physical Therapy Daily Note ---
PT Daily Note-Current Subjective Pt. agrees to Rx. Feels she has made significant progress. Pain Numeric Pain Scale: 0-No Pain Mental Status Patient Orientation: Normal For Age Transfers Functional [place] Measure 0=Not Assessed/NA 4=Minimal Assistance 1=Total Assistance 5=Supervision or Setup 2=Maximal Assistance 6=Modified [place] 3=Moderate Assistance 7=Complete IndependenceIRFPAI Quality Coding Scale 6 Independent with activity with or without an assistive device 5 Patient requires set up or clean up by helper. Patient completes activity by themselves 4 Supervision or touching assist (CGA). [place] provide cues , steadying assist 3 The helper provides less than half the effort to complete the activity 2 The helper provides more than half the effort to complete the activity 1 Dependent. The helper does all the effort to complete an activity 7 Patient refused to complete or attempt activity 9 The patient did not perform the activity before the current illness or injury 88 Not attempted due to Medical conditions or safety concerns all TRFs SBA to MOD I toilet, chair and bed Gait Training Does the Patient Walk?: Yes Gait Assistive Device: FWW gait with FWW 200 ft for fig 8s and reaching and picking cones up from floor at various places along fig 8 path, no LOB Balance Picking up an Object (QC): 5 Special Test Comments completed CEDEÑO at 44/56 ,see in hard chart Neuromuscular see kim CEDEÑO for standing on one leg and 360 degree turns Assessment Current Status: Good Progress functional gains in all areas PT Short Term Goals Short Term Goals Time Frame: Jul 26, 2017 Transfers (B,C,W/C) (FIM): 4 Gait (FIM): 4 PT Boiler Plant Worker Goals Boiler Plant Worker Goals PT Boiler Plant Worker Goals Time Frame: Aug 04, 2017 Transfers (B,C,W/C) (FIM): 7 Sit to Lying (QC): 6 Lying-Sitting on Side/Bed(QC): 6 Sit to Stand (QC): 6 Rollin Roll Left to Right (QC): 6 Chair/Lyn-bw-Bpbzs Xfer(QC): 6 Car Transfer (QC): 5 Does the Patient Walk: Yes Gait (FIM): 6 Gait distance (FIM): 3=150 ft Walk 10 feet (QC): 6 Walk 10ft-Uneven Surface(QC): 6 Walk 50ft with 2 Turns (QC): 6 Walk 150 ft (QC): 6 Gait Assistive Device: FWW Does the Pt use WC or Scooter?: No Stairs (FIM): 5 # of Steps: 8 1 Step (curb) (QC): 6 4 Steps (QC): 5 12 Steps (QC): 88 Picking up an Object (QC): 5 PT Plan Treatment/Plan Treatment Plan: Continue Plan of Care Treatment Plan: Bed Mobility, Education, Functional Activity Demario, Functional Strength, Group Therapy, Gait, Safety, Therapeutic Exercise, Transfers Treatment Duration: Aug 04, 2017 Frequency: At least 5 of 7 days/Wk (IRF) Estimated Hrs Per Day: 1.5 hours per day Patient and/or Family Agrees t: Yes Safety Risks/Education Patient Education: Gait Training, Transfer Techniques, Correct Positioning, Safety Issues (balance) Teaching Recipient: Patient Teaching Methods: Demonstration, Discussion Response to Teaching: Verbalize Understanding, Return Demonstration, Reinforcement Needed Time/GCodes Time In: 1300 Time Out: 1330 Total Billed Treatment Time: 30 Total Billed Treatment 1,NM30m G Codes Necessary: No MELONY GRAY EMBEDDED FIRMWARE ENGINEER Jul 24, 2017 13:36
--- NOTE | 2017-07-24 15:03 | Occupational Ther Daily Note ---
OT Current Status-Daily Note Subjective No pain reported. Appearance Pt. up in chair. Agrees to shower. Mental Status/Objective Patient Orientation: Person, Place, Time Functional [place] Measure 0=Not Assessed/NA 4=Minimal Assistance 1=Total Assistance 5=Supervision or Setup 2=Maximal Assistance 6=Modified [place] 3=Moderate Assistance 7=Complete [place] ADL-Treatment Functional [place] Measure 0=Not Assessed/NA 4=Minimal Assistance 1=Total Assistance 5=Supervision or Setup 2=Maximal Assistance 6=Modified [place] 3=Moderate Assistance 7=Complete IndependenceIRFPAI Quality Coding Scale 6 Independent with activity with or without an assistive device 5 Patient requires set up or clean up by helper. Patient completes activity by themselves 4 Supervision or touching assist (CGA). [place] provide cues , steadying assist 3 The helper provides less than half the effort to complete the activity 2 The helper provides more than half the effort to complete the activity 1 Dependent. The helper does all the effort to complete an activity 7 Patient refused to complete or attempt activity 9 The patient did not perform the activity before the current illness or injury 88 Not attempted due to Medical conditions or safety concerns Grooming (FIM): 5 (Pt. able to brush hair and teeth at sink with SBA.) Oral Hygiene (QC): 4 Bathing (FIM): 5 (Pt. able to shower with SBA.) Shower/Bathe Self (QC): 4 Upper Body (FIM): 5 Upper Body Dressing (QC): 4 Lower Body Dressing (FIM): 5 Lower Body Dressing (QC): 4 On/Off Footwear (QC): 4 Toileting (FIM): 6 Toileting Hygiene (QC): 6 Transfers (B, C, W/C) (FIM): 5 (Pt. able to complete all transfers using walker with SBA.) Toilet/Commode Transfer (FIM): 5 Toilet Transfer (QC): 4 Shower Transfer(FIM): 5 Other Treatment After shower, pt. dressed in bathroom. All ADLs performed with SBA. Able to ambulate to therapy gym. Tolerated 10 minutes on armbike to increase overall endurance and strength at mod resistance. Ambulated back to room. All needs met. Education OT Patient Education: Correct positioning, Exercise program, Modified ADL techniques, Progress toward Goal/Update tx plan, Purpose of tx/functional activities, Reviewed precautions, Rehab process, Transfer techniques Teaching Recipient: Patient Teaching Methods: Demonstration, Discussion Response to Teaching: Verbalize Understanding, Return Demonstration OT Short Term Goals Short Term Goals Transfers (B,C,W/C) (FIM): 4 1=Demonstrate adherence to instructed precautions during ADL tasks. 2=Patient will verbalize/demonstrate understanding of assistive devices/ modifications for ADL. 3=Patient will improve strength/tolerance for activity to enable patient to perform ADL's. OT Policy Writer Typist Goals Policy Writer Typist Goals Time Frame: Aug 02, 2017 Eating (FIM): 6 Eating (QC): 6 Groomin Oral Hygiene (QC): 6 Bathing(FIM): 5 Shower/Bathe Self (QC): 5 Upper Body Dressing(FIM): 6 Upper Body Dressing (QC): 5 Lower Body Dressing(FIM): 6 Lower Body Dressing (QC): 5 On/Off Footwear (QC): 5 Toileting(FIM): 6 Toileting Hygiene (QC): 5 Transfers (B,C,W/C) (FIM): 6 Toilet/Commode Transfer(FIM): 6 Toilet/Commode Transfer (QC): 5 Shower Transfer(FIM): 5 Comprehension(FIM): 5 Expression (FIM): 4 Social Interaction(FIM): 5 Problem Solving(FIM): 4 Memory(FIM): 4 1=Demonstrate adherence to instructed precautions during ADL tasks. 2=Patient will verbalize/demonstrate understanding of assistive devices/ modifications for ADL. 3=Patient will improve strength/tolerance for activity to enable patient to perform ADL's. OT Education/Plan Problem List/Assessment Assessment: Decreased Activ Tolerance, Dependent Transfers, Impaired Cognition , Impaired I ADL's, Impaired Self-Care Skills Discharge Recommendations Plan/Recommendations: Continue POC Therapy D/C Recommendations: Home w/ Family Support Treatment Plan/Plan of Care Treatment,Training & Education: Yes Patient would benefit from OT for education, treatment and training to promote independence in ADL's, mobility, safety and/or upper extremity function for ADL' s. Plan of Care: ADL Retraining, Functional Mobility Treatment Duration: Aug 02, 2017 Frequency: At least 5 of 7 days/Wk (IRF) Estimated Hrs Per Day: 1.5 hours per day Agreement: Yes Rehab Potential: Good Time/GCodes Start Time: 09:00 Stop Time: 10:00 Total Time Billed (hr/min): 60 Billed Treatment Time 1, ADL x 45minutes, EX x 15minutes GERARDO BLANKENSHIP OT Jul 24, 2017 15:03
--- NOTE | 2017-07-24 15:09 | Occupational Ther Daily Note ---
OT Current Status-Daily Note Subjective No pain reported. Appearance Pt. up in chair. Agrees to work with OT. Mental Status/Objective Functional [place] Measure 0=Not Assessed/NA 4=Minimal Assistance 1=Total Assistance 5=Supervision or Setup 2=Maximal Assistance 6=Modified [place] 3=Moderate Assistance 7=Complete [place] ADL-Treatment Functional [place] Measure 0=Not Assessed/NA 4=Minimal Assistance 1=Total Assistance 5=Supervision or Setup 2=Maximal Assistance 6=Modified [place] 3=Moderate Assistance 7=Complete IndependenceIRFPAI Quality Coding Scale 6 Independent with activity with or without an assistive device 5 Patient requires set up or clean up by helper. Patient completes activity by themselves 4 Supervision or touching assist (CGA). [place] provide cues , steadying assist 3 The helper provides less than half the effort to complete the activity 2 The helper provides more than half the effort to complete the activity 1 Dependent. The helper does all the effort to complete an activity 7 Patient refused to complete or attempt activity 9 The patient did not perform the activity before the current illness or injury 88 Not attempted due to Medical conditions or safety concerns Other Treatment Pt. ambulated to therapy gym with walker with SBA. Tolerated series of visual perceptual tasks, as well as cognitive/time management task. Pt. completed visual scan task in which she had not difficulty. Then completed task in which she was asked to look at a design, and copy it on paper with the original in front of her. Pt. able to do this. But did add something that wasn't there. Was aware that she did this. Pt. was then given a time management task in which she had to organize her day by writing in order how she would complete tasks. Pt. was in noisy environment, and was asked to focus on this task. Had great difficulty with this. Unable to complete this. Difficulty concentrating and attending. Ambulated back to room. All needs met. Education OT Patient Education: Progress toward Goal/Update tx plan, Purpose of tx/ functional activities, Reviewed precautions, Rehab process, Transfer techniques Teaching Recipient: Patient Teaching Methods: Demonstration, Discussion Response to Teaching: Verbalize Understanding, Return Demonstration OT Short Term Goals Short Term Goals Transfers (B,C,W/C) (FIM): 4 1=Demonstrate adherence to instructed precautions during ADL tasks. 2=Patient will verbalize/demonstrate understanding of assistive devices/ modifications for ADL. 3=Patient will improve strength/tolerance for activity to enable patient to perform ADL's. OT Master Police Detective Goals Skilled Nursing Goals Time Frame: Aug 02, 2017 Eating (FIM): 6 Eating (QC): 6 Groomin Oral Hygiene (QC): 6 Bathing(FIM): 5 Shower/Bathe Self (QC): 5 Upper Body Dressing(FIM): 6 Upper Body Dressing (QC): 5 Lower Body Dressing(FIM): 6 Lower Body Dressing (QC): 5 On/Off Footwear (QC): 5 Toileting(FIM): 6 Toileting Hygiene (QC): 5 Transfers (B,C,W/C) (FIM): 6 Toilet/Commode Transfer(FIM): 6 Toilet/Commode Transfer (QC): 5 Shower Transfer(FIM): 5 Comprehension(FIM): 5 Expression (FIM): 4 Social Interaction(FIM): 5 Problem Solving(FIM): 4 Memory(FIM): 4 1=Demonstrate adherence to instructed precautions during ADL tasks. 2=Patient will verbalize/demonstrate understanding of assistive devices/ modifications for ADL. 3=Patient will improve strength/tolerance for activity to enable patient to perform ADL's. OT Education/Plan Problem List/Assessment Assessment: Decreased Activ Tolerance, Decreased UE Strength, Dependent Transfers, Impaired Bed Mobility, Impaired Cognition, Impaired Funct Balance, Impaired I ADL's, Impaired Self-Care Skills, Visual-Perceptual Deficit Discharge Recommendations Plan/Recommendations: Continue POC Therapy D/C Recommendations: Home w/ Family Support, Occupational Therapy Home Care Treatment Plan/Plan of Care Treatment,Training & Education: Yes Patient would benefit from OT for education, treatment and training to promote independence in ADL's, mobility, safety and/or upper extremity function for ADL' s. Plan of Care: ADL Retraining, Functional Mobility Treatment Duration: Aug 02, 2017 Frequency: At least 5 of 7 days/Wk (IRF) Estimated Hrs Per Day: 1.5 hours per day Agreement: Yes Rehab Potential: Good Time/GCodes Start Time: 13:30 Stop Time: 14:15 Total Time Billed (hr/min): 45 Billed Treatment Time 1, FA x 3 GERARDO BLANKENSHIP OT Jul 24, 2017 15:09
[2017-07-24 17:47] VITALS: BP 170/85
[2017-07-24] MEDS: ENOXAPARIN 40 MG/0.4 ML (LOVENOX) SYR SC SCH (20:44)
[2017-07-24] MEDS: ATORVASTATIN 40 MG (LIPITOR) TABLET PO SCH (20:44)
[2017-07-24] MEDS: FAMOTIDINE 20 MG (PEPCID) TABLET PO SCH (20:44)
--- NOTE | 2017-07-24 21:03 | PM & R (SOAP) Progress Note ---
Subjective Time Seen by Provider: 20:35 Subjective/Events-last exam Patient was seen in her room this evening Systolic BP elevated No MIRANDA or CP or dizziness Hospitalist to F/U.Patient SBA for transfers,Current Labs reviewed Objective Exam Last Set of Vital Signs Vital Signs Date Time Temp Pulse Resp B/P (MAP) Pulse Ox O2 Delivery O2 Flow Rate FiO2 07/24/17 19:41 95 Room Air 07/24/17 17:47 97.8 88 20 170/85 Capillary Refill : I&O Intake and Output 07/25/17 00:00 Intake Total 1100 ml Balance 1100 ml Intake Oral 1100 ml # Voids 10 # Bowel Movements 1 General: Alert, Cooperative, No Acute Distress HEENT: Atraumatic, PERRLA, EOMI, Mucous Memb Moist/[place] Neck: Supple, No JVD Lungs: Clear to Auscultation Heart: Regular Rate Abdomen: Normal Bowel Sounds, Soft, No Tenderness Extremities: No Edema Neuro: Other (Strength lower extremities 4/5 mild cognitive impairment) Results Lab Laboratory Tests 07/22/17 05:43: Glucometer 117H 07/22/17 11:04: Glucometer 155H 07/22/17 16:16: Glucometer 172H 07/22/17 20:45: Glucometer 207H 07/23/17 06:03: Glucometer 115H 07/23/17 11:25: Glucometer 255H 07/23/17 16:05: Glucometer 127H 07/23/17 21:08: Glucometer 204H 07/24/17 05:24: Glucometer 124H 07/24/17 11:00: Glucometer 152H 07/24/17 16:38: Glucometer 126H Assessment/Plan Assessment RT Thalamic infarct with gait imbalance Mild cognitive deficit RT Upper lobe pneumonia treated UTI under treatment Anxiety on meds Insomnia -on meds HTN controlled with meds DM controlled Plan Continue PT/OT/ST Team Conference 07-26-17 F/U with hospitalist service Monitor accucheks and adjust meds as needed. F/U with Hospitalist re elevated SBP Discussed case with Nursing RADHA FONG MD Jul 24, 2017 21:03
[2017-07-25 05:23] VITALS: BP 171/96
[2017-07-25] MEDS: metFORMIN 500 MG (GLUCOPHAGE) TAB PO SCH (06:10)
[2017-07-25] MEDS: inSUlin ASPART (NovoLOG) 1 UNIT/0.01 ML (CHARGE PER UNIT) SC SCH ×4 (06:10→20:53)
[2017-07-25] MEDS: PANTOPRAZOLE 40 MG (PROTONIX) TAB PO SCH (06:10)
[2017-07-25 06:48] VITALS: BP 171/96
[2017-07-25] MEDS: RT-ALBUTEROL/IPRATROPIUM 3 ML (DUONEB) VIAL INH SCH ×2 (06:48→21:25)
[2017-07-25] MEDS: VALSARTAN 80 MG (DIOVAN) TAB PO SCH (07:47)
[2017-07-25] MEDS: carBAMazepine 200 MG (TEGretol) TAB PO SCH ×2 (07:48→20:17)
[2017-07-25] MEDS: AMITRIPTYLINE 25 MG (ELAVIL) TAB PO SCH ×2 (07:48→20:17)
[2017-07-25] MEDS: ASPIRIN E.C. 325 MG (ECOTRIN) TABLET PO SCH (07:48)
[2017-07-25] MEDS: SPIRONOLACTONE 25 MG (ALDACTONE) TAB PO SCH (07:48)
[2017-07-25] MEDS: amLODIPine 10 MG (NORVASC) TAB PO SCH (07:48)
[2017-07-25] MEDS: ALLOPURINOL 300 MG (ZYLOPRIM) TAB PO SCH (07:48)
--- NOTE | 2017-07-25 09:39 | Speech Therapy Daily Note ---
Speech Daily Progress Note Subjective Date Seen by Provider: Jul 25, 2017 Time Seen by Provider: 08:15 The patient was seated upright in bed upon entrance. The patient greeted the clinician appropriately and was agreeable to participation in the cognitive treatment session. Objective Functional Safety Problem Solving: The patient was provided pictures of images depicting safety concerns in her environment. The patient was asked to identify the safety concern and provide an appropriate solution. The patient displayed good accuracy with this task, with mild clinician verbal cueing provided. Orientation: The patient remains 100% oriented to location, month, day, date, and year. Assessment Assessment Current Status: Good Progress Treatment Plan Continue Plan of Care Communication Comprehension: 5 Expression: 4 Social Cognition Social Interaction: 5 Problem Solvin Memory: 4 Speech Short Term Goals Short Term Goals Short Term Goals 1. The patient will display 90% accuracy with structured word-finding tasks with mild clinician verbal cueing. PROGRESSING 2. The patient will continue to demonstrate 90% accuracy with simple orientation information, independently. MET 3. The patient will demonstrate 90% accuracy with safety problem solving (most notably, home environment), independently. PROGRESSING Time Frame-STG: One Week Speech Correction Goals Payroll Examiner Goals 1. The patient will display improved expressive communication through functional conversation. 2. The patient will demonstrate increased cognitive skills for improved safety and function with ADLs. Time Frame: Two Weeks Comprehension: 5 Expression: 4 Social Interaction: 5 Problem Solvin Memory: 4 Speech-Plan Treatment Plan Speech Therapy Treatment Plan: Continue Plan of Care Continue skilled speech pathology to target functional communication and problem solving. Frequency: At least 5 of 7 days/Wk (IRF) Estimated Hrs Per Day: .5 hour per day Rehab Potential: Good Safety Risks/Education Teaching Recipient: Patient Teaching Methods: Discussion Response to Teaching: Verbalize Understanding Education Topics Provided: Plan of Care, Recommendations Time Speech Therapy Time In: 08:15 Speech Therapy Time Out: 08:45 Total Billed Time: 30 Billed Treatment Time [address] Jul 25, 2017 09:39
--- NOTE | 2017-07-25 10:02 | Physical Therapy Daily Note ---
PT Daily Note-Current Subjective Pt was sitting in chair, chair alarm on, prior to tx and agreeable to PT. Pt reports no pain. Pt was laying in bed with nurse call, phone, tray, all needs in reach, bed alarm on post tx. Pain Numeric Pain Scale: 0-No Pain Location: No Pain Reported Mental Status Patient Orientation: Person, Place, Situation Transfers Functional [place] Measure 0=Not Assessed/NA 4=Minimal Assistance 1=Total Assistance 5=Supervision or Setup 2=Maximal Assistance 6=Modified [place] 3=Moderate Assistance 7=Complete IndependenceIRFPAI Quality Coding Scale 6 Independent with activity with or without an assistive device 5 Patient requires set up or clean up by helper. Patient completes activity by themselves 4 Supervision or touching assist (CGA). [place] provide cues , steadying assist 3 The helper provides less than half the effort to complete the activity 2 The helper provides more than half the effort to complete the activity 1 Dependent. The helper does all the effort to complete an activity 7 Patient refused to complete or attempt activity 9 The patient did not perform the activity before the current illness or injury 88 Not attempted due to Medical conditions or safety concerns Transfers (B, C, W/C) (FIM): 5 Scootin Supine to/from Sit: 5 Sit to/from Stand: 5 Pt requires supervision for safety for all bed mobility and transfers. Gait Training Does the Patient Walk?: Yes Gait (FIM): 5 Distance (FIM): 3=150 ft Distance: 100', 200' Gait Level of Assist: 5 Gait Persons Needed: 1 Gait Assistive Device: FWW Pt ambulates with FWW and SBA for safety. Pt has tendency to leave walker behind with turning and navigating turns and requires verbal cues to keep walker with her. Exercises NuStep Minutes: 15 NuStep Workload: 4 Treatments Pt had high blood pressure this morning and BP was monitored prior to treatment (167/88). Pt blood pressure was monitored throughout treatment and decreased. ( 144/83, 137/82, 149/84). Pt completed tx on Nustep to increase endurance and standing balance activities (reaching for cones, navigating cones, kicking ball ) to increase balance. Assessment Current Status: Good Progress Pt balance is improving. PT Short Term Goals Short Term Goals Time Frame: Jul 26, 2017 Transfers (B,C,W/C) (FIM): 4 Gait (FIM): 4 PT Chief Digital Officer Goals Chief Digital Officer Goals PT Chief Digital Officer Goals Time Frame: Aug 04, 2017 Transfers (B,C,W/C) (FIM): 7 Sit to Lying (QC): 6 Lying-Sitting on Side/Bed(QC): 6 Sit to Stand (QC): 6 Rollin Roll Left to Right (QC): 6 Chair/Dzf-kk-Obzpe Xfer(QC): 6 Car Transfer (QC): 5 Does the Patient Walk: Yes Gait (FIM): 6 Gait distance (FIM): 3=150 ft Walk 10 feet (QC): 6 Walk 10ft-Uneven Surface(QC): 6 Walk 50ft with 2 Turns (QC): 6 Walk 150 ft (QC): 6 Gait Assistive Device: FWW Does the Pt use WC or Scooter?: No Stairs (FIM): 5 # of Steps: 8 1 Step (curb) (QC): 6 4 Steps (QC): 5 12 Steps (QC): 88 Picking up an Object (QC): 5 PT Plan Problem List Problem List: Activity Tolerance, Functional Strength, Safety, Balance, Gait, Transfer, Bed Mobility, ROM Treatment/Plan Treatment Plan: Continue Plan of Care Treatment Plan: Bed Mobility, Education, Functional Activity Demario, Functional Strength, Group Therapy, Gait, Safety, Therapeutic Exercise, Transfers Treatment Duration: Aug 04, 2017 Frequency: At least 5 of 7 days/Wk (IRF) Estimated Hrs Per Day: 1.5 hours per day Patient and/or Family Agrees t: Yes Safety Risks/Education Patient Education: Gait Training, Transfer Techniques, Reviewed Precautions, Correct Positioning, Safety Issues Teaching Recipient: Patient Teaching Methods: Demonstration, Discussion Response to Teaching: Verbalize Understanding, Reinforcement Needed Time/GCodes Time In: 900 Time Out: 1000 Total Billed Treatment Time: 60 Total Billed Treatment 1 visit 15 GT 15 EX 30 MARJORIE DOMINGUEZ PT Jul 25, 2017 10:02
--- NOTE | 2017-07-25 11:21 | PM & R (SOAP) Progress Note ---
Subjective Time Seen by Provider: 07:40 Subjective/Events-last exam Patient was seen in her room this AM Patient SBA for transfers Accucheks noted Objective Exam Last Set of Vital Signs Vital Signs Date Time Temp Pulse Resp B/P (MAP) Pulse Ox O2 Delivery O2 Flow Rate FiO2 07/25/17 09:00 Room Air 07/25/17 06:48 92 07/25/17 06:48 76 07/25/17 05:23 97.6 20 171/96 Capillary Refill : I&O Intake and Output 07/26/17 00:00 Intake Total 250 ml Balance 250 ml Intake Oral 250 ml # Voids 8 General: Alert, Cooperative, No Acute Distress HEENT: Atraumatic, PERRLA, EOMI, Mucous Memb Moist/[place] Neck: Supple, No JVD Lungs: Clear to Auscultation Heart: Regular Rate Abdomen: Normal Bowel Sounds, Soft, No Tenderness Extremities: No Edema Neuro: Other (Strength lower extremities 4/5 mild cognitive impairment) Results Lab Laboratory Tests 07/22/17 16:16: Glucometer 172H 07/22/17 20:45: Glucometer 207H 07/23/17 06:03: Glucometer 115H 07/23/17 11:25: Glucometer 255H 07/23/17 16:05: Glucometer 127H 07/23/17 21:08: Glucometer 204H 07/24/17 05:24: Glucometer 124H 07/24/17 11:00: Glucometer 152H 07/24/17 16:38: Glucometer 126H 07/24/17 21:40: Glucometer 221H 07/25/17 06:09: Glucometer 122H Assessment/Plan Assessment RT Thalamic infarct with gait imbalance Mild cognitive deficit RT Upper lobe pneumonia treated UTI under treatment Anxiety on meds Insomnia -on meds HTN controlled with meds DM controlled Plan Continue PT/OT/ST Team Conference tomorrow 07-26-17 F/U with hospitalist service Monitor accucheks and adjust meds as needed. F/U with Hospitalist re elevated SBP Discussed case with Nursing RADHA FONG MD Jul 25, 2017 11:20
--- NOTE | 2017-07-25 11:41 | Occupational Ther Daily Note ---
OT Current Status-Daily Note Subjective No pain reported. Appearance Pt. is in bed asleep. OT wakes her. Pt. agrees to shower. Mental Status/Objective Patient Orientation: Person, Place Functional [place] Measure 0=Not Assessed/NA 4=Minimal Assistance 1=Total Assistance 5=Supervision or Setup 2=Maximal Assistance 6=Modified [place] 3=Moderate Assistance 7=Complete [place] Attachments: IV ADL-Treatment Functional [place] Measure 0=Not Assessed/NA 4=Minimal Assistance 1=Total Assistance 5=Supervision or Setup 2=Maximal Assistance 6=Modified [place] 3=Moderate Assistance 7=Complete IndependenceIRFPAI Quality Coding Scale 6 Independent with activity with or without an assistive device 5 Patient requires set up or clean up by helper. Patient completes activity by themselves 4 Supervision or touching assist (CGA). [place] provide cues , steadying assist 3 The helper provides less than half the effort to complete the activity 2 The helper provides more than half the effort to complete the activity 1 Dependent. The helper does all the effort to complete an activity 7 Patient refused to complete or attempt activity 9 The patient did not perform the activity before the current illness or injury 88 Not attempted due to Medical conditions or safety concerns Grooming (FIM): 6 Oral Hygiene (QC): 6 Bathing (FIM): 5 (Pt. requires SBA to shower self.) Shower/Bathe Self (QC): 5 Upper Body (FIM): 5 (Pt. is able to retrieve clothing from closet with walker with SBA.) Upper Body Dressing (QC): 4 Lower Body Dressing (FIM): 5 Lower Body Dressing (QC): 4 On/Off Footwear (QC): 4 Toileting (FIM): 6 Toileting Hygiene (QC): 6 Transfers (B, C, W/C) (FIM): 5 Toilet/Commode Transfer (FIM): 6 Toilet Transfer (QC): 6 Shower Transfer(FIM): 5 With short distances or activities that she is used to, pt. is able to ambulate with Mod I with walker. Otherwise, requires SBA for cues and instruction. Demonstrates some difficulty with problem solving. Ambulated to kitchen. Pt. given three tasks to complete, (get item out of top cabinet, low cabinet, and refridgerator.) Pt. went to kitchen and became confused as to what she was to do. Began opening all the cabinets, but did not take anything out until she had further instruction. This is possibly due to being in unfamiliar environment. Pt. was safe however with walker and no loss of balance noted. Ambulated to therapy gym. Tolerated 15 minutes on armbike at mod resistance to increase overall strength and endurance with daily tasks. Pt. did well with this. Ambulated back to room. All needs met. Education OT Patient Education: Correct positioning, Exercise program, Modified ADL techniques, Progress toward Goal/Update tx plan, Purpose of tx/functional activities, Reviewed precautions, Rehab process, Transfer techniques Teaching Recipient: Patient Teaching Methods: Demonstration, Discussion Response to Teaching: Verbalize Understanding, Return Demonstration OT Short Term Goals Short Term Goals Transfers (B,C,W/C) (FIM): 4 1=Demonstrate adherence to instructed precautions during ADL tasks. 2=Patient will verbalize/demonstrate understanding of assistive devices/ modifications for ADL. 3=Patient will improve strength/tolerance for activity to enable patient to perform ADL's. OT Precipitate Washer Goals Precipitate Washer Goals Time Frame: Aug 02, 2017 Eating (FIM): 6 Eating (QC): 6 Groomin Oral Hygiene (QC): 6 Bathing(FIM): 5 Shower/Bathe Self (QC): 5 Upper Body Dressing(FIM): 6 Upper Body Dressing (QC): 5 Lower Body Dressing(FIM): 6 Lower Body Dressing (QC): 5 On/Off Footwear (QC): 5 Toileting(FIM): 6 Toileting Hygiene (QC): 5 Transfers (B,C,W/C) (FIM): 6 Toilet/Commode Transfer(FIM): 6 Toilet/Commode Transfer (QC): 5 Shower Transfer(FIM): 5 Comprehension(FIM): 5 Expression (FIM): 4 Social Interaction(FIM): 5 Problem Solving(FIM): 4 Memory(FIM): 4 1=Demonstrate adherence to instructed precautions during ADL tasks. 2=Patient will verbalize/demonstrate understanding of assistive devices/ modifications for ADL. 3=Patient will improve strength/tolerance for activity to enable patient to perform ADL's. OT Education/Plan Problem List/Assessment Assessment: Decreased Activ Tolerance, Impaired I ADL's, Impaired Self-Care Skills Discharge Recommendations Plan/Recommendations: Continue POC Therapy D/C Recommendations: Home w/ Family Support, Occupational Therapy Home Care Target Placement Home with support of her sister and neighbors. Treatment Plan/Plan of Care Treatment,Training & Education: Yes Patient would benefit from OT for education, treatment and training to promote independence in ADL's, mobility, safety and/or upper extremity function for ADL' s. Plan of Care: ADL Retraining, Cognitive Retraining, Functional Mobility Treatment Duration: Aug 02, 2017 Frequency: At least 5 of 7 days/Wk (IRF) Estimated Hrs Per Day: 1.5 hours per day Agreement: Yes Rehab Potential: Good Time/GCodes Start Time: 10:15 Stop Time: 11:30 Total Time Billed (hr/min): 75 Billed Treatment Time 1, ADL x 60minutes, Ex x 15minutes GERARDO BLANKENSHIP OT Jul 25, 2017 11:40
--- NOTE | 2017-07-25 13:33 | Physical Therapy Daily Note ---
PT Daily Note-Current Subjective Pt was sitting in chair prior to tx and agreeable to PT. Pt reports no pain. Pt was lying in bed with nurse call, phone, tray, alarm on, all needs in reach post tx. Pain Numeric Pain Scale: 0-No Pain Location: No Pain Reported Mental Status Patient Orientation: Normal For Age Transfers Functional [place] Measure 0=Not Assessed/NA 4=Minimal Assistance 1=Total Assistance 5=Supervision or Setup 2=Maximal Assistance 6=Modified [place] 3=Moderate Assistance 7=Complete IndependenceIRFPAI Quality Coding Scale 6 Independent with activity with or without an assistive device 5 Patient requires set up or clean up by helper. Patient completes activity by themselves 4 Supervision or touching assist (CGA). [place] provide cues , steadying assist 3 The helper provides less than half the effort to complete the activity 2 The helper provides more than half the effort to complete the activity 1 Dependent. The helper does all the effort to complete an activity 7 Patient refused to complete or attempt activity 9 The patient did not perform the activity before the current illness or injury 88 Not attempted due to Medical conditions or safety concerns Transfers (B, C, W/C) (FIM): 4 Scootin Rollin Supine to/from Sit: 4 Sit to/from Stand: 5 Pt required min assist to complete supine to sitting on edge of mat. Pt was supervision with all other bed mobility and transfers for safety. Gait Training Does the Patient Walk?: Yes Gait (FIM): 5 Distance (FIM): 3=150 ft Distance: 150'x2 Gait Level of Assist: 5 Gait Persons Needed: 1 Gait Assistive Device: FWW Pt ambulates with SBA and FWW for safety. Pt has tendency to leave walker behind and is verbally cued for safety. Exercises Supine Ex: Bridging, Ankle pumps, Heel Slides, Short Arc Quads, Straight leg raise, Hip abd/add Supine Reps: 20 Seated Therapy Exercises: Long arc quads, Hamstring Curls Seated Reps: 15 Treatments Pt completed gait training to increase functional mobility and independence. Pt completed supine and seated exercises to increase functional LE strengthening. Pt used theraband with seated exercises for increased resistance. Assessment Current Status: Good Progress Pt ambulation is improving. PT Short Term Goals Short Term Goals Time Frame: Jul 26, 2017 Transfers (B,C,W/C) (FIM): 4 Gait (FIM): 4 PT Assistance Representative Goals Assistance Representative Goals PT Group Home Goals Time Frame: Aug 04, 2017 Transfers (B,C,W/C) (FIM): 7 Sit to Lying (QC): 6 Lying-Sitting on Side/Bed(QC): 6 Sit to Stand (QC): 6 Rollin Roll Left to Right (QC): 6 Chair/Kpx-ts-Sekdt Xfer(QC): 6 Car Transfer (QC): 5 Does the Patient Walk: Yes Gait (FIM): 6 Gait distance (FIM): 3=150 ft Walk 10 feet (QC): 6 Walk 10ft-Uneven Surface(QC): 6 Walk 50ft with 2 Turns (QC): 6 Walk 150 ft (QC): 6 Gait Assistive Device: FWW Does the Pt use WC or Scooter?: No Stairs (FIM): 5 # of Steps: 8 1 Step (curb) (QC): 6 4 Steps (QC): 5 12 Steps (QC): 88 Picking up an Object (QC): 5 PT Plan Problem List Problem List: Activity Tolerance, Functional Strength, Safety, Balance, Gait, Transfer, Bed Mobility, ROM Treatment/Plan Treatment Plan: Continue Plan of Care Treatment Plan: Bed Mobility, Education, Functional Activity Demario, Functional Strength, Group Therapy, Gait, Safety, Therapeutic Exercise, Transfers Treatment Duration: Aug 04, 2017 Frequency: At least 5 of 7 days/Wk (IRF) Estimated Hrs Per Day: 1.5 hours per day Patient and/or Family Agrees t: Yes Safety Risks/Education Patient Education: Gait Training, Transfer Techniques, Reviewed Precautions, Correct Positioning, Safety Issues Teaching Recipient: Patient Teaching Methods: Demonstration, Discussion Response to Teaching: Verbalize Understanding, Reinforcement Needed Time/GCodes Time In: 1300 Time Out: 1330 Total Billed Treatment Time: 30 Total Billed Treatment 1 visit 10 GT 20 MARJORIE PEMBERTON PT Jul 25, 2017 13:33
[2017-07-25 17:49] VITALS: BP 168/84
[2017-07-25] MEDS: ENOXAPARIN 40 MG/0.4 ML (LOVENOX) SYR SC SCH (20:16)
[2017-07-25] MEDS: ATORVASTATIN 40 MG (LIPITOR) TABLET PO SCH (20:17)
[2017-07-25] MEDS: FAMOTIDINE 20 MG (PEPCID) TABLET PO SCH (20:17)
[2017-07-25] MEDS: ACETAMINOPHEN 325 MG TABLET/CAPLET (TYLENOL) PO PRN (20:46)
[2017-07-26 05:05] VITALS: BP 158/84
[2017-07-26] MEDS: inSUlin ASPART (NovoLOG) 1 UNIT/0.01 ML (CHARGE PER UNIT) SC SCH ×4 (05:21→20:43)
[2017-07-26] MEDS: metFORMIN 500 MG (GLUCOPHAGE) TAB PO SCH (06:12)
[2017-07-26] MEDS: PANTOPRAZOLE 40 MG (PROTONIX) TAB PO SCH (06:12)
[2017-07-26] MEDS: RT-ALBUTEROL/IPRATROPIUM 3 ML (DUONEB) VIAL INH SCH ×2 (07:30→21:00)
--- NOTE | 2017-07-26 09:45 | Physical Therapy Daily Note ---
PT Daily Note-Current Subjective Pt was in bed prior to tx, bed alarm on, and agreeable to PT. Pt reports no pain. Pt was laying in bed with nurse call, phone, tray, all needs in reach post tx, bed alarm on. Pain Numeric Pain Scale: 0-No Pain Location: No Pain Reported Mental Status Patient Orientation: Person, Place, Situation Transfers Functional [place] Measure 0=Not Assessed/NA 4=Minimal Assistance 1=Total Assistance 5=Supervision or Setup 2=Maximal Assistance 6=Modified [place] 3=Moderate Assistance 7=Complete IndependenceIRFPAI Quality Coding Scale 6 Independent with activity with or without an assistive device 5 Patient requires set up or clean up by helper. Patient completes activity by themselves 4 Supervision or touching assist (CGA). [place] provide cues , steadying assist 3 The helper provides less than half the effort to complete the activity 2 The helper provides more than half the effort to complete the activity 1 Dependent. The helper does all the effort to complete an activity 7 Patient refused to complete or attempt activity 9 The patient did not perform the activity before the current illness or injury 88 Not attempted due to Medical conditions or safety concerns Transfers (B, C, W/C) (FIM): 6 Scootin Rollin Roll Left to Right (QC): 6 Supine to/from Sit: 6 Sit to/from Stand: 6 Sit to Lying (QC): 6 Sit to Stand (QC): 6 Chair/Crp-cl-Rpbxm Xfer(QC): 6 Bed to/from Chair: 6 Pt is mod-I with all transfers and bed mobility. Gait Training Does the Patient Walk?: Yes Gait (FIM): 5 Distance (FIM): 3=150 ft Distance: 250', 105' Walk 10 feet (QC): 4 Walk 50 ft with 2 Turns(QC): 4 Walk 150 ft (QC): 4 Walking 10ft/uneven surface-QC: 4 Gait Level of Assist: 5 Gait Persons Needed: 1 Gait Assistive Device: FWW Pt ambulates with FWW and supervision for safety. She ambulated 250' with a rolling walker with SBA, including 50' with at least 2 turns of 90 degrees and 10' over an uneven surface. Wheelchair Training Does the Pt Use a Wheelchair?: No Stair Training Stair Training: Handrails/: 2 handrails Stairs (FIM): 4 #of Steps: 12 1 Step (curb) (QC): 4 4 Steps (QC): 4 12 Steps (QC): 4 Stairs: Pattern: Step to Level of Assist: 4 Pt completes 12 stairs using 2 handrails for support and a step-to pattern. Pt requires CGA for safety and verbal cues for safety. Balance Picking up an Object (QC): 4 Exercises NuStep Minutes: 15 NuStep Workload: 4 Treatments Pt completed gait and stair training to increase functional mobility and independence. Pt completes tx on NuStep to increase endurance. Pt also completed balance exercises, walking over foam mat, navigating cones, unilateral stance, and bending/reaching to ground for objects to increase balance. Pt blood pressure was assessed prior to tx and was 162/87. PT continued to monitor pt blood pressure throughout tx (137/86, 147/95). Assessment Current Status: Good Progress Pt balance is improving, but pt still requires FWW for safety with ambulation. Pt has low endurance and requires frequent breaks for rest. PT Short Term Goals Short Term Goals Time Frame: Jul 26, 2017 Transfers (B,C,W/C) (FIM): 4 Gait (FIM): 4 PT Fulfillment Specialist Goals Fulfillment Specialist Goals PT Alf Goals Time Frame: Aug 04, 2017 Transfers (B,C,W/C) (FIM): 7 Sit to Lying (QC): 6 (met) Lying-Sitting on Side/Bed(QC): 6 (met) Sit to Stand (QC): 6 (met) Rollin (met) Roll Left to Right (QC): 6 (met) Chair/Isy-nl-Mlosh Xfer(QC): 6 (met) Car Transfer (QC): 5 Does the Patient Walk: Yes Gait (FIM): 6 Gait distance (FIM): 3=150 ft Walk 10 feet (QC): 6 Walk 10ft-Uneven Surface(QC): 6 Walk 50ft with 2 Turns (QC): 6 Walk 150 ft (QC): 6 Gait Assistive Device: FWW Does the Pt use WC or Scooter?: No Stairs (FIM): 5 # of Steps: 8 1 Step (curb) (QC): 6 4 Steps (QC): 5 12 Steps (QC): 88 Picking up an Object (QC): 5 PT Plan Problem List Problem List: Activity Tolerance, Functional Strength, Safety, Balance, Gait, Transfer, Bed Mobility, ROM Treatment/Plan Treatment Plan: Continue Plan of Care Treatment Plan: Bed Mobility, Education, Functional Activity Demario, Functional Strength, Group Therapy, Gait, Safety, Therapeutic Exercise, Transfers Treatment Duration: Aug 04, 2017 Frequency: At least 5 of 7 days/Wk (IRF) Estimated Hrs Per Day: 1.5 hours per day Patient and/or Family Agrees t: Yes Safety Risks/Education Patient Education: Gait Training, Transfer Techniques, Steps, Reviewed Precautions, Correct Positioning, Safety Issues Teaching Recipient: Patient Teaching Methods: Demonstration, Discussion Response to Teaching: Verbalize Understanding, Reinforcement Needed Time/GCodes Time In: 845 Time Out: 945 Total Billed Treatment Time: 60 Total Billed Treatment 1 visit 15 GT 15 EX 30 [place] MARJORIE BROWN PT Jul 26, 2017 09:45
--- NOTE | 2017-07-26 10:04 | Speech Therapy Daily Note ---
Speech Daily Progress Note Subjective Date Seen by Provider: Jul 26, 2017 Time Seen by Provider: 08:10 Objective Prior to the patient's weekly progress meeting, speech pathology formally reassessed the patient's cognition with the MoCA (version two). The results are as follows: - Visuospatial/Executive: The patient was unable to complete trail-making or cube copying. The patient was able to draw an accurate clock contour with numbers, however, the hands of the clock did not read the accurate time. - Naming: The patient was able to name three of three black and white images. - Memory: The patient was able to recall four of five single words immediately and zero of five single words following a five minute delay. - Attention: The patient was able to repeat three digits in reverse order and complete serial subtraction, however, was unable to repeat five digits forward. - Language: The patient was able to repeat one of two simple phrases and state similarities between two words. The patient displayed reduced word-finding ability. - Orientation: The patient was oriented to date, month, year, day, place, and city. Overall, the patient displayed a result of +20/30 correlating to a mild cognitive deficit in the areas of executive functioning and memory. Assessment Assessment Current Status: Good Progress Treatment Plan Continue Plan of Care Communication Comprehension: 4 Expression: 4 Social Cognition Social Interaction: 5 Problem Solvin Memory: 4 Speech Short Term Goals Short Term Goals Short Term Goals 1. The patient will display 90% accuracy with structured word-finding tasks with mild clinician verbal cueing. PROGRESSING 2. The patient will continue to demonstrate 90% accuracy with simple orientation information, independently. MET 3. The patient will demonstrate 90% accuracy with safety problem solving (most notably, home environment), independently. PROGRESSING Time Frame-STG: One Week Speech Detention Goals Byproducts Pump Operator Goals 1. The patient will display improved expressive communication through functional conversation. 2. The patient will demonstrate increased cognitive skills for improved safety and function with ADLs. Time Frame: Two Weeks Comprehension: 5 Expression: 4 Social Interaction: 5 Problem Solvin Memory: 4 Speech-Plan Treatment Plan Speech Therapy Treatment Plan: Continue Plan of Care Continue skilled speech pathology to target functional problem solving. Frequency: At least 5 of 7 days/Wk (IRF) Estimated Hrs Per Day: .5 hour per day Rehab Potential: Good Safety Risks/Education Teaching Recipient: Patient Teaching Methods: Discussion Response to Teaching: Verbalize Understanding Education Topics Provided: Sequencing, Problem Solving Time Speech Therapy Time In: 08:10 Speech Therapy Time Out: 08:40 Total Billed Time: 30 Billed Treatment Time 1, RICCI ARMENDARIZ Jul 26, 2017 10:03
[2017-07-26] MEDS: ASPIRIN E.C. 325 MG (ECOTRIN) TABLET PO SCH (10:23)
[2017-07-26] MEDS: carBAMazepine 200 MG (TEGretol) TAB PO SCH ×2 (10:23→20:43)
[2017-07-26] MEDS: VALSARTAN 80 MG (DIOVAN) TAB PO SCH (10:24)
[2017-07-26] MEDS: SPIRONOLACTONE 25 MG (ALDACTONE) TAB PO SCH (10:24)
[2017-07-26] MEDS: AMITRIPTYLINE 25 MG (ELAVIL) TAB PO SCH ×2 (10:24→20:43)
[2017-07-26] MEDS: amLODIPine 10 MG (NORVASC) TAB PO SCH (10:24)
[2017-07-26] MEDS: ALLOPURINOL 300 MG (ZYLOPRIM) TAB PO SCH (10:24)
--- NOTE | 2017-07-26 11:10 | PM & R (SOAP) Progress Note ---
Subjective Time Seen by Provider: 11:00 Subjective/Events-last exam Patient was seen in her room this AM Patient Modified Independent for transfers Objective Exam Last Set of Vital Signs Vital Signs Date Time Temp Pulse Resp B/P (MAP) Pulse Ox O2 Delivery O2 Flow Rate FiO2 07/26/17 07:30 95 Room Air 07/26/17 05:05 97.7 77 18 158/84 Capillary Refill : I&O Intake and Output 07/27/17 00:00 Intake Total 500 ml Balance 500 ml Intake Oral 500 ml # Voids 6 # Bowel Movements 1 General: Alert, Cooperative, No Acute Distress HEENT: Atraumatic, PERRLA, EOMI, Mucous Memb Moist/[place] Neck: Supple, No JVD Lungs: Clear to Auscultation Heart: Regular Rate Abdomen: Normal Bowel Sounds, Soft, No Tenderness Extremities: No Edema Neuro: Other (Strength lower extremities 4/5 mild cognitive impairment) Results Lab Laboratory Tests 07/23/17 11:25: Glucometer 255H 07/23/17 16:05: Glucometer 127H 07/23/17 21:08: Glucometer 204H 07/24/17 05:24: Glucometer 124H 07/24/17 11:00: Glucometer 152H 07/24/17 16:38: Glucometer 126H 07/24/17 21:40: Glucometer 221H 07/25/17 06:09: Glucometer 122H 07/25/17 11:37: Glucometer 162H 07/25/17 16:05: Glucometer 178H 07/25/17 20:50: Glucometer 176H 07/26/17 04:34: Glucometer 132H Assessment/Plan Assessment RT Thalamic infarct with gait imbalance Mild cognitive deficit RT Upper lobe pneumonia treated UTI under treatment Anxiety on meds Insomnia -on meds HTN with elevated Systolic BP better controlled with meds DM controlled Plan Continue PT/OT/ST Team Conference later today 07-26-17-see report for full functional update and POC and ELOS F/U with hospitalist service Monitor accucheks and adjust meds as needed.-well controlled at this point F/U with Hospitalist re HTN management as needed Discussed case with Nursing RADHA FONG MD Jul 26, 2017 11:10
--- NOTE | 2017-07-26 12:09 | Occupational Ther Daily Note ---
OT Current Status-Daily Note Subjective No pain reported. Appearance Pt. in bed. Agrees to shower. Mental Status/Objective Patient Orientation: Person, Place, Time Functional Crisp Measure 0=Not Assessed/NA 4=Minimal Assistance 1=Total Assistance 5=Supervision or Setup 2=Maximal Assistance 6=Modified Cris[place] 3=Moderate Assistance 7=Complete Crisp Attachments: IV ADL-Treatment Functional Crisp Measure 0=Not Assessed/NA 4=Minimal Assistance 1=Total Assistance 5=Supervision or Setup 2=Maximal Assistance 6=Modified [place] 3=Moderate Assistance 7=Complete IndependenceIRFPAI Quality Coding Scale 6 Independent with activity with or without an assistive device 5 Patient requires set up or clean up by helper. Patient completes activity by themselves 4 Supervision or touching assist (CGA). [place] provide cues , steadying assist 3 The helper provides less than half the effort to complete the activity 2 The helper provides more than half the effort to complete the activity 1 Dependent. The helper does all the effort to complete an activity 7 Patient refused to complete or attempt activity 9 The patient did not perform the activity before the current illness or injury 88 Not attempted due to Medical conditions or safety concerns Grooming (FIM): 6 Bathing (FIM): 6 (Pt. able to shower self with Mod I.) Shower/Bathe Self (QC): 6 Upper Body (FIM): 6 Upper Body Dressing (QC): 6 Lower Body Dressing (FIM): 6 Lower Body Dressing (QC): 6 On/Off Footwear (QC): 6 Toileting (FIM): 6 Toileting Hygiene (QC): 6 Transfers (B, C, W/C) (FIM): 6 Toilet/Commode Transfer (FIM): 6 Toilet Transfer (QC): 6 Shower Transfer(FIM): 5 Other Treatment After ADL treatment, pt. ambulated to therapy gym and completed armbike x 15 minutes to increase overall strength and endurance. Pt. then requested to have Equal in her tea. Ambulated with walker to kitchen area, and retrieved Equal packets. Able to open them and put them in her tea. Pt. ambulated back to room with some safety concerns, as she will walk off without her walker at times. No loss of balance noted. Pt. educated on importance of following up with continued therapy after discharge, and being cleared by physician once before driving. Pt. verbalizes understanding of this. Neighbor in room and verbalizes that pt. will have a lot of assist at home. Education OT Patient Education: Exercise program, Modified ADL techniques, Progress toward Goal/Update tx plan, Purpose of tx/functional activities, Reviewed precautions, Rehab process, Transfer techniques Teaching Recipient: Patient Teaching Methods: Demonstration, Discussion Response to Teaching: Verbalize Understanding, Return Demonstration OT Short Term Goals Short Term Goals Transfers (B,C,W/C) (FIM): 4 1=Demonstrate adherence to instructed precautions during ADL tasks. 2=Patient will verbalize/demonstrate understanding of assistive devices/ modifications for ADL. 3=Patient will improve strength/tolerance for activity to enable patient to perform ADL's. OT Long-Term Goals Sock Knitting Machine Operator Goals Time Frame: Aug 02, 2017 Eating (FIM): 6 Eating (QC): 6 Groomin Oral Hygiene (QC): 6 Bathing(FIM): 5 Shower/Bathe Self (QC): 5 Upper Body Dressing(FIM): 6 Upper Body Dressing (QC): 5 Lower Body Dressing(FIM): 6 Lower Body Dressing (QC): 5 On/Off Footwear (QC): 5 Toileting(FIM): 6 Toileting Hygiene (QC): 5 Transfers (B,C,W/C) (FIM): 6 Toilet/Commode Transfer(FIM): 6 Toilet/Commode Transfer (QC): 5 Shower Transfer(FIM): 5 Comprehension(FIM): 5 Expression (FIM): 4 Social Interaction(FIM): 5 Problem Solving(FIM): 4 Memory(FIM): 4 1=Demonstrate adherence to instructed precautions during ADL tasks. 2=Patient will verbalize/demonstrate understanding of assistive devices/ modifications for ADL. 3=Patient will improve strength/tolerance for activity to enable patient to perform ADL's. OT Education/Plan Problem List/Assessment Assessment: Decreased Activ Tolerance Discharge Recommendations Plan/Recommendations: Continue POC Therapy D/C Recommendations: Home w/ Family Support, Occupational Therapy Home Care Treatment Plan/Plan of Care Treatment,Training & Education: Yes Patient would benefit from OT for education, treatment and training to promote independence in ADL's, mobility, safety and/or upper extremity function for ADL' s. Plan of Care: ADL Retraining, Cognitive Retraining, Functional Mobility Treatment Duration: Aug 02, 2017 Frequency: At least 5 of 7 days/Wk (IRF) Estimated Hrs Per Day: 1.5 hours per day Agreement: Yes Rehab Potential: Good Time/GCodes Start Time: 09:45 Stop Time: 11:00 Total Time Billed (hr/min): 75 Billed Treatment Time 1, ADL x 60minutes, Ex x 15minutes GERARDO BLANKENSHIP OT Jul 26, 2017 12:08
--- NOTE | 2017-07-26 15:58 | Physical Therapy Daily Note ---
PT Daily Note-Current Subjective Pt laying Supine in bed upon arrival. Pt agrees to PT. Pt is excited to discharge tomorrow. Pain Location: No Pain Reported Mental Status Patient Orientation: Person, Place, Situation Transfers Functional [place] Measure 0=Not Assessed/NA 4=Minimal Assistance 1=Total Assistance 5=Supervision or Setup 2=Maximal Assistance 6=Modified [place] 3=Moderate Assistance 7=Complete IndependenceIRFPAI Quality Coding Scale 6 Independent with activity with or without an assistive device 5 Patient requires set up or clean up by helper. Patient completes activity by themselves 4 Supervision or touching assist (CGA). [place] provide cues , steadying assist 3 The helper provides less than half the effort to complete the activity 2 The helper provides more than half the effort to complete the activity 1 Dependent. The helper does all the effort to complete an activity 7 Patient refused to complete or attempt activity 9 The patient did not perform the activity before the current illness or injury 88 Not attempted due to Medical conditions or safety concerns Scootin Rollin Roll Left to Right (QC): 5 Supine to/from Sit: 5 Sit to/from Stand: 5 Sit to Stand (QC): 5 Weight Bearing Weight Bearing Restriction: Full Weight Bearing Location Restriction: LE Bilateral Gait Training Does the Patient Walk?: Yes Distance (FIM): 3=150 ft Distance: 200' Walk 10 feet (QC): 5 Walk 50 ft with 2 Turns(QC): 5 Walk 150 ft (QC): 5 Gait Level of Assist: 5 Gait Persons Needed: 1 Gait Assistive Device: FWW Pt has slow but steady gait, no LOB. Wheelchair Training Does the Pt Use a Wheelchair?: No Exercises Standing: Hip Abduction, Hamstring curls, Marching, Weight shifts Standing Reps: 20 Treatments Pt transfers from Supine to EOB to standing using FWW at SBA. Pt ambulates using FWW at SBA in Therapy Commons. Pt completes Standing Ex at //bars. Pt returns to room to rest in recliner at end of tx with all needs met. Assessment Current Status: Good Progress Pt has improved with independence and safety of ambulation and transfers. PT Short Term Goals Short Term Goals Time Frame: Jul 26, 2017 Transfers (B,C,W/C) (FIM): 4 Gait (FIM): 4 PT Halfway Goals Membership Sales Representative Goals PT Membership Sales Representative Goals Time Frame: Aug 04, 2017 Transfers (B,C,W/C) (FIM): 7 Sit to Lying (QC): 6 (met) Lying-Sitting on Side/Bed(QC): 6 (met) Sit to Stand (QC): 6 (met) Rollin (met) Roll Left to Right (QC): 6 (met) Chair/Rrj-ma-Jijue Xfer(QC): 6 (met) Car Transfer (QC): 5 Does the Patient Walk: Yes Gait (FIM): 6 Gait distance (FIM): 3=150 ft Walk 10 feet (QC): 6 Walk 10ft-Uneven Surface(QC): 6 Walk 50ft with 2 Turns (QC): 6 Walk 150 ft (QC): 6 Gait Assistive Device: FWW Does the Pt use WC or Scooter?: No Stairs (FIM): 5 # of Steps: 8 1 Step (curb) (QC): 6 4 Steps (QC): 5 12 Steps (QC): 88 Picking up an Object (QC): 5 PT Plan Problem List Problem List: Activity Tolerance, Safety Treatment/Plan Treatment Plan: Continue Plan of Care Treatment Plan: Bed Mobility, Education, Functional Activity Demario, Functional Strength, Group Therapy, Gait, Safety, Therapeutic Exercise, Transfers Treatment Duration: Aug 04, 2017 Frequency: At least 5 of 7 days/Wk (IRF) Estimated Hrs Per Day: 1.5 hours per day Patient and/or Family Agrees t: Yes Safety Risks/Education Patient Education: Gait Training, Correct Positioning, Safety Issues Teaching Recipient: Patient Teaching Methods: Discussion Response to Teaching: Verbalize Understanding Time/GCodes Time In: 1430 Time Out: 1500 Total Billed Treatment Time: 30 Total Billed Treatment visit, GT (10m) & EX (20m) KRISTA GONZALEZ BINDING STITCHER Jul 26, 2017 15:58
[2017-07-26 18:04] VITALS: BP 147/80
[2017-07-26] MEDS ORDERED: SPIR25TA3 PO (20:11)
[2017-07-26] MEDS ORDERED: FAMO20TA5 PO (20:11)
[2017-07-26] MEDS ORDERED: VALS80TA PO (20:11)
[2017-07-26] MEDS ORDERED: LOVA40TA2 PO (20:11)
[2017-07-26] MEDS ORDERED: CARB200T6 PO (20:11)
[2017-07-26] MEDS ORDERED: AMLO10TA2 PO (20:11)
[2017-07-26] MEDS ORDERED: PANT40TA3 PO (20:11)
[2017-07-26] MEDS: ATORVASTATIN 40 MG (LIPITOR) TABLET PO SCH (20:42)
[2017-07-26] MEDS: FAMOTIDINE 20 MG (PEPCID) TABLET PO SCH (20:43)
[2017-07-27 05:43] VITALS: BP 162/80
[2017-07-27] MEDS: PANTOPRAZOLE 40 MG (PROTONIX) TAB PO SCH (06:22)
[2017-07-27] MEDS: metFORMIN 500 MG (GLUCOPHAGE) TAB PO SCH (06:22)
[2017-07-27] MEDS: inSUlin ASPART (NovoLOG) 1 UNIT/0.01 ML (CHARGE PER UNIT) SC SCH ×2 (06:23→11:31)
[2017-07-27] MEDS: RT-ALBUTEROL/IPRATROPIUM 3 ML (DUONEB) VIAL INH SCH (07:19)
--- NOTE | 2017-07-27 08:14 | PM & R (SOAP) Progress Note ---
Subjective Time Seen by Provider: 07:40 Subjective/Events-last exam Patient was seen in her room this AM Labs and Vital signs reviewed. Objective Exam Last Set of Vital Signs Vital Signs Date Time Temp Pulse Resp B/P (MAP) Pulse Ox O2 Delivery O2 Flow Rate FiO2 07/27/17 07:20 95 Room Air 07/27/17 05:43 97.4 78 18 162/80 Capillary Refill : I&O Intake and Output 07/28/17 00:00 Intake Total 450 ml Balance 450 ml Intake Oral 450 ml # Voids 6 General: Alert, Cooperative, No Acute Distress HEENT: Atraumatic, PERRLA, EOMI, Mucous Memb Moist/[place] Neck: Supple, No JVD Lungs: Clear to Auscultation Heart: Regular Rate Abdomen: Normal Bowel Sounds, Soft, No Tenderness Extremities: No Edema Neuro: Other (Strength lower extremities 4/5 mild cognitive impairment) Results Lab Laboratory Tests 07/24/17 11:00: Glucometer 152H 07/24/17 16:38: Glucometer 126H 07/24/17 21:40: Glucometer 221H 07/25/17 06:09: Glucometer 122H 07/25/17 11:37: Glucometer 162H 07/25/17 16:05: Glucometer 178H 07/25/17 20:50: Glucometer 176H 07/26/17 04:34: Glucometer 132H 07/26/17 11:14: Glucometer 218H 07/26/17 16:38: Glucometer 156H 07/26/17 20:41: Glucometer 141H 07/27/17 05:27: Glucometer 146H Assessment/Plan Assessment RT Thalamic infarct with gait imbalance Mild cognitive deficit RT Upper lobe pneumonia treated UTI treated Anxiety on meds Insomnia -on meds HTN with elevated Systolic BP better controlled with meds DM controlled Plan Discharge today to home with HHC F/U with PCP DR Todd See orders. RADHA FONG MD Jul 27, 2017 08:14
[2017-07-27] MEDS: ASPIRIN E.C. 325 MG (ECOTRIN) TABLET PO SCH (08:15)
[2017-07-27] MEDS: VALSARTAN 80 MG (DIOVAN) TAB PO SCH (08:15)
[2017-07-27 08:16] VITALS: BP 160/80
[2017-07-27] MEDS: amLODIPine 10 MG (NORVASC) TAB PO SCH (08:16)
[2017-07-27] MEDS: AMITRIPTYLINE 25 MG (ELAVIL) TAB PO SCH (08:16)
[2017-07-27] MEDS: carBAMazepine 200 MG (TEGretol) TAB PO SCH (08:16)
[2017-07-27] MEDS: ALLOPURINOL 300 MG (ZYLOPRIM) TAB PO SCH (08:16)
[2017-07-27] MEDS: SPIRONOLACTONE 25 MG (ALDACTONE) TAB PO SCH (08:16)
--- NOTE | 2017-07-27 08:32 | Therapy Team Discharge Summary ---
Therapy Discharge Summary Discharge Recommendations Date of Discharge Therapy D/C Recommendations: Home w/ Family Support, Occupational Therapy Home Care Physical Therapy Patient came to rehab for sepsis/pneumonia. Upon admission patient performed bed mobility with SBA and transfers with min to mod assist, ambulated 50' with a rolling walker with min assist, and went up and down 1 step using a rolling walker with min assist. Patient has been performing bed mobility and transfer training, balance and endurance training, functional strengthening, stair training, gait training, and education. Patient has made good progress but has only met her bed mobility and transfer senior care goals. Now, patient performs bed mobility and transfers with mod I, ambulated 250' with a rolling walker with SBA, including 50' with at least 2 turns of 90 degrees and 10' over an uneven surface, and went up and down 12 steps using 2 handrails with CGA. Patient is discharging from this facility today and will be discharged from PT at this time. PT Usp Goals Soldering Machine Feeder Goals PT Soldering Machine Feeder Goals Time Frame: Aug 04, 2017 Transfers (B,C,W/C) (FIM): 7 Roll Left to Right (QC): 6 (met) Sit to Lying (QC): 6 (met) Lying-Sitting on Side/Bed(QC): 6 (met) Sit to Stand (QC): 6 (met) Chair/Rto-cg-Hrjwc Xfer(QC): 6 (met) Car Transfer (QC): 5 Does the Patient Walk: Yes Gait (FIM): 6 Gait distance (FIM): 3=150 ft Walk 10 feet (QC): 6 Walk 10ft-Uneven Surface(QC): 6 Walk 50ft with 2 Turns (QC): 6 Walk 150 ft (QC): 6 Gait Assistive Device: FWW Does the Pt use WC or Scooter?: No Stairs (FIM): 5 # of Steps: 8 1 Step (curb) (QC): 6 4 Steps (QC): 5 12 Steps (QC): 88 Picking up an Object (QC): 5 OT Soldering Machine Feeder Goals Usp Goals Time Frame: Aug 02, 2017 Eating (FIM): 6 Eating (QC): 6 Oral Hygiene (QC): 6 Grooming(FIM): 6 Bathing(FIM): 5 Shower/Bathe Self (QC): 5 Upper Body Dressing(FIM): 6 Upper Body Dressing (QC): 5 Lower Body Dressing(FIM): 6 Lower Body Dressing (QC): 5 On/Off Footwear (QC): 5 Toileting(FIM): 6 Toileting Hygiene (QC): 5 Transfers (B,C,W/C) (FIM): 6 Toilet/Commode Transfer(FIM): 6 Toilet/Commode Transfer (QC): 5 Shower Transfer(FIM): 5 Comprehension(FIM): 5 Expression (FIM): 4 Social Interaction(FIM): 5 Problem Solving(FIM): 4 Memory(FIM): 4 1=Demonstrate adherence to instructed precautions during ADL tasks. 2=Patient will verbalize/demonstrate understanding of assistive devices/ modifications for ADL. 3=Patient will improve strength/tolerance for activity to enable patient to perform ADL's. Speech Usp Goals Soldering Machine Feeder Goals 1. The patient will display improved expressive communication through functional conversation. 2. The patient will demonstrate increased cognitive skills for improved safety and function with ADLs. Time Frame: Two Weeks Comprehension: 5 Expression: 4 Social Interaction: 5 Problem Solvin Memory: 4 MARJORIE BRWON PT Jul 27, 2017 08:32
--- NOTE | 2017-07-27 08:40 | Therapy Team Discharge Summary ---
Therapy Discharge Summary Discharge Recommendations Date of Discharge 07-27-17 Therapy D/C Recommendations: Home w/ Family Support, Occupational Therapy Home Care Occupational Therapy Pt. has been seen by occupational therapy to increase overall strength and endurance with daily tasks. Pt. has met all goals, with some safety concerns. Pt. demonstrates good balance when up on walker, and ability to perform tasks, with safety pertaining to cognition and multi-tasking. Pt. may do better in her own environment. Pt. has good support at home, and will have assistance as needed for grocery shopping, IADLs. Pt states that her landlord can add grab bars in her bathroom if needed. No other equipment needed. Recommend home health OT to make sure that pt. is truly independent with daily tasks in her own environment, and has system in place to problem solve and sequence all steps. Pt. is discharging today back to apartment. All needs met in this setting. PT Industrial Automation Specialist Goals Half-Way Goals PT Industrial Automation Specialist Goals Time Frame: Aug 04, 2017 Transfers (B,C,W/C) (FIM): 7 Roll Left to Right (QC): 6 (met) Sit to Lying (QC): 6 (met) Lying-Sitting on Side/Bed(QC): 6 (met) Sit to Stand (QC): 6 (met) Chair/Ddp-ep-Qxjzs Xfer(QC): 6 (met) Car Transfer (QC): 5 Does the Patient Walk: Yes Gait (FIM): 6 Gait distance (FIM): 3=150 ft Walk 10 feet (QC): 6 Walk 10ft-Uneven Surface(QC): 6 Walk 50ft with 2 Turns (QC): 6 Walk 150 ft (QC): 6 Gait Assistive Device: FWW Does the Pt use WC or Scooter?: No Stairs (FIM): 5 # of Steps: 8 1 Step (curb) (QC): 6 4 Steps (QC): 5 12 Steps (QC): 88 Picking up an Object (QC): 5 OT Half-Way Goals Industrial Automation Specialist Goals Time Frame: Aug 02, 2017 Eating (FIM): 6 (met) Eating (QC): 6 (met) Oral Hygiene (QC): 6 (met) Grooming(FIM): 6 (met) Bathing(FIM): 5 (met) Shower/Bathe Self (QC): 5 (met) Upper Body Dressing(FIM): 6 (met) Upper Body Dressing (QC): 5 (met) Lower Body Dressing(FIM): 6 (met) Lower Body Dressing (QC): 5 (met) On/Off Footwear (QC): 5 (met) Toileting(FIM): 6 (met) Toileting Hygiene (QC): 5 (met) Transfers (B,C,W/C) (FIM): 6 (met) Toilet/Commode Transfer(FIM): 6 (met) Toilet/Commode Transfer (QC): 5 (met) Shower Transfer(FIM): 5 (met) Comprehension(FIM): 5 Expression (FIM): 4 Social Interaction(FIM): 5 Problem Solving(FIM): 4 Memory(FIM): 4 1=Demonstrate adherence to instructed precautions during ADL tasks. 2=Patient will verbalize/demonstrate understanding of assistive devices/ modifications for ADL. 3=Patient will improve strength/tolerance for activity to enable patient to perform ADL's. Speech Half-Way Goals Industrial Automation Specialist Goals 1. The patient will display improved expressive communication through functional conversation. 2. The patient will demonstrate increased cognitive skills for improved safety and function with ADLs. Time Frame: Two Weeks Comprehension: 5 Expression: 4 Social Interaction: 5 Problem Solvin Memory: 4 GERARDO BLANKENSHIP OT Jul 27, 2017 08:40
--- NOTE | 2017-07-27 09:45 | Therapy Team Discharge Summary ---
Therapy Discharge Summary Discharge Recommendations Date of Discharge Therapy D/C Recommendations: Home w/ Family Support, Occupational Therapy Home Care Speech-Language Pathology The patient was recently admitted to [facility] with a diagnosis of CVA. The patient displays mild to moderate deficits with attention , word-finding, memory, and problem solving. Skilled speech pathology services focused on safety problem solving, functional word-finding, and ADL tasks ( check writing, instruction following). While the patient continues to display a mild cognitive deficit, she met all goals initially placed by speech pathology. At this time, the patient will be discharged from skilled speech pathology services. PT Retanner Goals Retanner Goals PT Retanner Goals Time Frame: Aug 04, 2017 Transfers (B,C,W/C) (FIM): 7 Roll Left to Right (QC): 6 (met) Sit to Lying (QC): 6 (met) Lying-Sitting on Side/Bed(QC): 6 (met) Sit to Stand (QC): 6 (met) Chair/Zqe-ey-Eecps Xfer(QC): 6 (met) Car Transfer (QC): 5 Does the Patient Walk: Yes Gait (FIM): 6 Gait distance (FIM): 3=150 ft Walk 10 feet (QC): 6 Walk 10ft-Uneven Surface(QC): 6 Walk 50ft with 2 Turns (QC): 6 Walk 150 ft (QC): 6 Gait Assistive Device: FWW Does the Pt use WC or Scooter?: No Stairs (FIM): 5 # of Steps: 8 1 Step (curb) (QC): 6 4 Steps (QC): 5 12 Steps (QC): 88 Picking up an Object (QC): 5 OT Residential Goals Residential Goals Time Frame: Aug 02, 2017 Eating (FIM): 6 (met) Eating (QC): 6 (met) Oral Hygiene (QC): 6 (met) Grooming(FIM): 6 (met) Bathing(FIM): 5 (met) Shower/Bathe Self (QC): 5 (met) Upper Body Dressing(FIM): 6 (met) Upper Body Dressing (QC): 5 (met) Lower Body Dressing(FIM): 6 (met) Lower Body Dressing (QC): 5 (met) On/Off Footwear (QC): 5 (met) Toileting(FIM): 6 (met) Toileting Hygiene (QC): 5 (met) Transfers (B,C,W/C) (FIM): 6 (met) Toilet/Commode Transfer(FIM): 6 (met) Toilet/Commode Transfer (QC): 5 (met) Shower Transfer(FIM): 5 (met) Comprehension(FIM): 5 Expression (FIM): 4 Social Interaction(FIM): 5 Problem Solving(FIM): 4 Memory(FIM): 4 1=Demonstrate adherence to instructed precautions during ADL tasks. 2=Patient will verbalize/demonstrate understanding of assistive devices/ modifications for ADL. 3=Patient will improve strength/tolerance for activity to enable patient to perform ADL's. Speech Residential Goals Retanner Goals 1. The patient will display improved expressive communication through functional conversation. 2. The patient will demonstrate increased cognitive skills for improved safety and function with ADLs. Time Frame: Two Weeks Comprehension: 5 (MET) Expression: 4 (MET) Social Interaction: 5 (MET) Problem Solvin (MET) Memory: 4 (MET) RICCI NG Jul 27, 2017 09:45
[2017-07-27 14:30] VITALS: BP 160/80
== END 2017-07-27 14:34 | disposition home health service (06) | DRG 57 ==
PROVIDERS: ADMIT Physical Medicine & Rehabilitation; ATTEND Physical Medicine & Rehabilitation
DX: I69.398 Other sequelae of cerebral infarction (principal); R26.81 Unsteadiness on feet; I69.311 Memory deficit following cerebral infarction; I69.320 Aphasia following cerebral infarction; N39.0 Urinary tract infection, site not specified; I25.10 Atherosclerotic heart disease of native coronary artery without angina pectoris; J44.9 Chronic obstructive pulmonary disease, unspecified; I10 Essential (primary) hypertension; Z66 Do not resuscitate; E11.9 Type 2 diabetes mellitus without complications; F17.210 Nicotine dependence, cigarettes, uncomplicated; F41.9 Anxiety disorder, unspecified; G47.00 Insomnia, unspecified; Z87.01 Personal history of pneumonia (recurrent)
CPT/HCPCS: 82962; 94640; 94760

== ENCOUNTER → 2017-08-28 | Outpatient (CLI) | payer MEDICARE ==
[~2017-08-28] MED LIST changes: +AMLO10TA2 PO
[2017-08-28 10:37] LABS: BASOPHILS # (AUTO) 0.1 10^3/uL (0.0-0.1); BASOPHILS % (AUTO) 0 % (0-10); EOSINOPHILS # (AUTO) 0.3 10^3/uL (0.0-0.3); EOSINOPHILS % (AUTO) 2 % (0-10); LYMPHOCYTES # (AUTO) 2.5 X 10^3 (1.0-4.0); LYMPHOCYTES % (AUTO) 20 % (12-44); MEAN CORPUSCULAR HEMOGLOBIN 30 PG (25-34); MEAN CORPUSCULAR HGB CONC 32 G/DL (32-36); MEAN CORPUSCULAR VOLUME 93 FL (80-99); MEAN PLATELET VOLUME 9.1 FL (7.4-10.4); MONOCYTES # (AUTO) 0.6 X 10^3 (0.0-1.0); MONOCYTES % (AUTO) 5 % (0-12); NEUTROPHILS % (AUTO) 72 % (42-75); PLATELET COUNT 374 10^3/uL (130-400); RED BLOOD COUNT 3.87 10^6/uL (4.35-5.85); RED CELL DISTRIBUTION WIDTH 16.2 % (10.0-14.5); WHITE BLOOD COUNT 12.4 10^3/uL (4.3-11.0)
== END ==
LOC: LAB 10:25
DX: D72.820 Lymphocytosis (symptomatic) (principal)
CPT/HCPCS: 36415; 85025